=== PATIENT | male | born 1965 | race Caucasian/White ===

== ENCOUNTER 2017-07-31 19:40 | Emergency (ER) | payer OTHER ==
[~2017-07-31] VITALS: Ht 170.2 cm; Wt 70.0 kg
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
[2017-07-31] MEDS ORDERED: TETANUS/DIPHTHERIA TOXOID ADULT 0.5 ML VIAL IM ONE (20:00)
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
[2017-07-31 21:41] VITALS: BP 144/87; PULSE 88; RESP 16; TEMP 98.6; O2SAT 98
== END 2017-07-31 23:54 ==
LOC: NEPD 19:40
DX: S09.90XA Unspecified injury of head, initial encounter (principal); F10.129 Alcohol abuse with intoxication, unspecified; I83.892 Varicose veins of left lower extremity with other complications; K70.30 Alcoholic cirrhosis of liver without ascites; B19.20 Unspecified viral hepatitis C without hepatic coma; V68.1XXA Passenger in heavy transport vehicle injured in noncollision transport accident in nontraffic accident, initial encounter; Y90.9 Presence of alcohol in blood, level not specified; Z72.0 Tobacco use; Z23 Encounter for immunization
CPT/HCPCS: 12011; 70450; 72125; 90471; 90714; 96372

== ENCOUNTER 2017-08-23 08:21 | Inpatient (IN) | payer OTHER ==
[~2017-08-23] VITALS: Ht 170.2 cm; Wt 91.5 kg
[2017-08-23] VITALS (9 sets, daily range): BP systolic 128–155; BP diastolic 65–77; PULSE 97–121; RESP 12–20; TEMP 98–100; O2SAT 96–100
--- NOTE | 2017-08-23 09:42 | PD ---
HPI Chief Complaint: GI Complaint Time Seen by Provider: 09:40 Travel History International Travel<30 days: No Contact w/Intl Traveler<30days: No Traveled to known affect area: No History of Present Illness HPI 51-year-old male patient with history of cirrhosis, previous GI bleed, here because he states that he has had 2 days of dark diarrhea which is constant, nauseous, throwing up. He denies any fevers or other issues. He has been dizzy as well. He denies any chest pains or trouble breathing. Modifying Factors: None Associated Signs & Symptoms: Nausea, vomiting, dark stools Risk Factors: Cirrhosis, GI bleed history PFSH Past Medical History Cirrhosis: Yes Past Surgical History Surgical History: No Previous Surgery Social History Alcohol Use: Yes Tobacco Use: Yes (1 cig a day) Substance Use: No Allergies-Medications (Allergen,Severity, Reaction): Coded Allergies: Penicillins (Verified Allergy, Unknown, 08/23/17) patient just states "they told me im allergic to PCN" Reported Meds & Prescriptions Reported Meds & Active Scripts Active No Active Prescriptions or Reported Medications Review of Systems Except as stated in HPI: all other systems reviewed are Neg Physical Exam Narrative GENERAL: Well-developed middle-age male patient currently in mild distress. Awake and oriented 3. SKIN: Focused skin assessment warm/dry. HEAD: Atraumatic. Normocephalic. EYES: Pupils equal and round. No scleral icterus. No injection or drainage. ENT: No nasal bleeding or discharge. Mucous membranes pink and moist. NECK: Trachea midline. No JVD. Supple. CARDIOVASCULAR: Regular rate and rhythm. No murmur appreciated. RESPIRATORY: No accessory muscle use. Clear to auscultation. Breath sounds equal bilaterally. GASTROINTESTINAL: Abdomen soft, non-tender, mildly distended. Hepatic and splenic margins not palpable. RECTAL EXAM: No masses or tenderness, stool is dark brown. Hemoccult positive. MUSCULOSKELETAL: No obvious deformities. No clubbing. No cyanosis. No edema. NEUROLOGICAL: Awake and alert. No obvious cranial nerve deficits. Motor grossly within normal limits. Normal speech. PSYCHIATRIC: Appropriate mood and affect; insight and judgment normal. Data Data Last Documented VS Vital Signs Date Time Temp Pulse Resp B/P (MAP) Pulse Ox O2 Delivery O2 Flow Rate FiO2 08/23/17 10:04 113 18 141/71 (94) 98 Room Air 08/23/17 08:36 98.7 Orders Orders Complete Blood Count With Diff (08/23/17 08:38) Comprehensive Metabolic Panel (08/23/17 08:38) Urinalysis - C+S If Indicated (08/23/17 08:38) Iv Access Insert/Monitor (08/23/17 08:38) Oxygen Administration (08/23/17 08:38) Oximetry (08/23/17 08:38) Lipase (08/23/17 08:38) Prothrombin Time / Inr (Pt) (08/23/17 08:38) Act Partial Throm Time (Ptt) (08/23/17 08:38) Type And Screen (08/23/17 08:38) Alcohol (Ethanol) (08/23/17 08:38) Sodium Chlor 0.9% 1000 Ml Inj (Ns 1000 M (08/23/17 09:45) Pantoprazole Inj (Protonix Inj) (08/23/17 09:45) Red Blood Cells (Rbc) (08/23/17 11:00) Blood Product Administration (08/23/17 11:00) Sodium Chlor 0.9% 250 Ml Inj (Ns 250 Ml (08/23/17 11:00) Admit Order (Ed Use Only) (08/23/17 11:11) Labs Laboratory Tests Test 08/23/17 09:00 08/23/17 10:34 Prothrombin Time 14.1 SEC Prothromb Time International Ratio 1.4 RATIO Activated Partial Thromboplast Time 25.9 SEC Blood Urea Nitrogen 15 MG/DL Creatinine 0.56 MG/DL Random Glucose 119 MG/DL Total Protein 7.6 GM/DL Albumin 2.9 GM/DL Calcium Level 8.1 MG/DL Alkaline Phosphatase 188 U/L Aspartate Amino Transf (AST/SGOT) 59 U/L Alanine Aminotransferase (ALT/SGPT) 31 U/L Total Bilirubin 3.5 MG/DL Sodium Level 142 MEQ/L Potassium Level 4.4 MEQ/L Chloride Level 107 MEQ/L Carbon Dioxide Level 25.6 MEQ/L Anion Gap 9 MEQ/L Estimat Glomerular Filtration Rate 154 ML/MIN Lipase 135 U/L Ethyl Alcohol Level 19 MG/DL White Blood Count 3.5 TH/MM3 Red Blood Count 2.17 MIL/MM3 Hemoglobin 6.3 GM/DL Hematocrit 19.2 % Mean Corpuscular Volume 88.6 FL Mean Corpuscular Hemoglobin 29.1 PG Mean Corpuscular Hemoglobin Concent 32.8 % Red Cell Distribution Width 22.7 % Platelet Count 133 TH/MM3 Mean Platelet Volume 7.7 FL Neutrophils (%) (Auto) 63.6 % Lymphocytes (%) (Auto) 20.9 % Monocytes (%) (Auto) 10.6 % Eosinophils (%) (Auto) 3.3 % Basophils (%) (Auto) 1.6 % Neutrophils # (Auto) 2.2 TH/MM3 Lymphocytes # (Auto) 0.7 TH/MM3 Monocytes # (Auto) 0.4 TH/MM3 Eosinophils # (Auto) 0.1 TH/MM3 Basophils # (Auto) 0.1 TH/MM3 CBC Comment DIFF FINAL Differential Comment MDM Medical Decision Making Medical Screen Exam Complete: Yes Emergency Medical Condition: Yes Medical Record Reviewed: Yes Interpretation(s) Laboratory Tests Test 08/23/17 09:00 08/23/17 10:34 Prothrombin Time 14.1 SEC (9.8-11.6) Creatinine 0.56 MG/DL (0.60-1.30) Random Glucose 119 MG/DL (74-106) Albumin 2.9 GM/DL (3.4-5.0) Calcium Level 8.1 MG/DL (8.5-10.1) Alkaline Phosphatase 188 U/L (45-117) Aspartate Amino Transf (AST/SGOT) 59 U/L (15-37) Total Bilirubin 3.5 MG/DL (0.2-1.0) Ethyl Alcohol Level 19 MG/DL (0-5) White Blood Count 3.5 TH/MM3 (4.0-11.0) Red Blood Count 2.17 MIL/MM3 (4.50-5.90) Hemoglobin 6.3 GM/DL (13.0-17.0) Hematocrit 19.2 % (39.0-51.0) Red Cell Distribution Width 22.7 % (11.6-17.2) Platelet Count 133 TH/MM3 (150-450) Monocytes (%) (Auto) 10.6 % (0.0-8.0) Lymphocytes # (Auto) 0.7 TH/MM3 (1.0-4.8) Differential Diagnosis GI bleed versus coagulopathy versus gastroenteritis Narrative Course Heme Hemoccult is positive. His H&H is low. Patient was initiated on IV fluids , Protonix, and 2 units of PRBCs. Case is discussed with family practice resident service for admission for further treatment. He will need GI consult as well. HemaPrompt Point of Care Internal Pos. & Neg. Controls: Passed Fecal Specimen Occult Blood: Positive Diagnosis Primary Impression: GI bleed Additional Impression: Severe anemia Admitting Information Admitting Physician Requests: Admit Scripts No Active Prescriptions or Reported Meds Sherly Rice MD Aug 23, 2017 09:42
[2017-08-23] MEDS ORDERED: SODIUM CHLOR 0.9% 1000 ML INJ 1,000 ML IV ONE (09:45)
[2017-08-23] MEDS ORDERED: PANTOPRAZOLE SODIUM 40 MG VIAL IV PUSH ONE (09:45)
[2017-08-23 10:00] LABS: INTERNATIONAL NORMALIZED RATIO 1.4 RATIO; PROTHROMBIN TIME - PATIENT 14.1 SEC (9.8-11.6)
[2017-08-23 10:13] LABS: ALBUMIN 2.9 GM/DL (3.4-5.0); ALT (GPT) 31 U/L (12-78); AST (GOT) 59 U/L (15-37); BICARBONATE 25.6 MEQ/L (21.0-32.0); BLOOD UREA NITROGEN 15 MG/DL (7-18); CALCIUM 8.1 MG/DL (8.5-10.1); CHLORIDE 107 MEQ/L (98-107); CREATININE 0.56 MG/DL (0.60-1.30); GLOMERULAR FILTRATION RATE 154 ML/MIN (>89); GLUCOSE,RANDOM 119 MG/DL (74-106); SODIUM (NA) 142 MEQ/L (136-145)
[2017-08-23 10:16] LABS: ALKALINE PHOSPHATASE 188 U/L (45-117); TOTAL BILIRUBIN ADULT 3.5 MG/DL (0.2-1.0); TOTAL PROTEIN 7.6 GM/DL (6.4-8.2)
[2017-08-23 10:57] LABS: AUTOMATED NEUTROPHIL # 2.2 TH/MM3 (1.8-7.7); BASOPHIL # 0.1 TH/MM3 (0-0.2); BASOPHIL % 1.6 % (0.0-2.0); EOSINOPHIL # 0.1 TH/MM3 (0-0.4); EOSINOPHIL % 3.3 % (0.0-4.0); LYMPH % 20.9 % (9.0-44.0); LYMPHOCYTE # 0.7 TH/MM3 (1.0-4.8); MEAN CELL VOLUME 88.6 FL (80.0-100.0); MEAN CORPUSCULAR HEMOGLOBIN 29.1 PG (27.0-34.0); MEAN CORPUSCULAR HGB CONC 32.8 % (32.0-36.0); MEAN PLATELET VOLUME 7.7 FL (7.0-11.0); MONO % 10.6 % (0.0-8.0); MONOCYTE # 0.4 TH/MM3 (0-0.9); NEUT % 63.6 % (16.0-70.0); PLATELET COUNT 133 TH/MM3 (150-450); RED BLOOD COUNT 2.17 MIL/MM3 (4.50-5.90); RED CELL DISTRIBUTION WIDTH 22.7 % (11.6-17.2); WHITE BLOOD COUNT 3.5 TH/MM3 (4.0-11.0)
[2017-08-23 11:00] LABS: HEMATOCRIT 19.2 % (39.0-51.0); HEMOGLOBIN 6.3 GM/DL (13.0-17.0)
[2017-08-23] MEDS ORDERED: SODIUM CHLOR 0.9% 250 ML INJ 250 ML IV ONE (11:00)
[2017-08-23] MEDS ORDERED: ONDANSETRON HCL 4 MG/2 ML VIAL IV PUSH PRN (11:15)
[2017-08-23] MEDS ORDERED: SODIUM CHLORIDE 0.9% FLUSH 10 ML FLUSH IV FLUSH PRN (11:15)
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
[2017-08-23] MEDS ORDERED: FLUMAZENIL 0.5 MG/5 ML VIAL IV PUSH PRN (12:00)
[2017-08-23] MEDS ORDERED: SENNOSIDES 8.6 MG TAB PO PRN (12:00)
[2017-08-23] MEDS ORDERED: LORazepam 2 MG TAB PO PRN (12:00)
[2017-08-23] MEDS ORDERED: LACTULOSE SYRUP 20 GM/30 ML CUP PO PRN (12:00)
[2017-08-23] MEDS ORDERED: LORazepam 1 MG TAB PO PRN (12:00)
[2017-08-23] MEDS ORDERED: MAGNESIUM HYDROXIDE SUSP 30 ML CUP PO PRN (12:00)
[2017-08-23] MEDS ORDERED: BISACODYL 10 MG SUPP RECTAL PRN (12:00)
[2017-08-23] MEDS ORDERED: LORazepam 2 MG/ML VIAL IV PUSH PRN ×4 (12:00)
[2017-08-23] MEDS ORDERED: NALOXONE HCL 0.4 MG/ML AMP IV PUSH PRN (12:00)
--- NOTE | 2017-08-23 12:48 | RADRPT ---
EXAM DATE/TIME: 08/23/2017 12:15 [facility] COMPARISON: No previous studies available for comparison. INDICATIONS : Cirrhosis. Abdominal pain. MEDICAL HISTORY : Cirrhosis. SURGICAL HISTORY : Colonoscopy. EGD. ENCOUNTER: Initial ACUITY: 1 day PAIN SCORE: 0/10 LOCATION: Abdomen. MEASUREMENTS: LIVER: 17.6 cm length COMMON DUCT: 5 mm RIGHT KIDNEY: 11.8 x 5.8 x 6.4 cm SPLEEN: 14.2 cm length FINDINGS: LIVER: The liver is enlarged and heterogeneous in echotexture. The contour of the liver is also somewhat nod ular. The findings are suggestive of probable cirrhosis. There is hepatopetal flow within the portal vein. No focal mass or biliary ductal dilatation is noted. Ascites is noted throughout the abdomen. COMMON DUCT: No intraluminal mass or stone visualized. GALLBLADDER: The wall of the gallbladder is thickened. No stones, pericholecystic fluid or sonographic Quiñones's si gn is noted. PANCREAS: The visualized portions are within normal limits. RIGHT KIDNEY: No hydronephrosis, stone or mass. SPLEEN: The spleen is enlarged. CONCLUSION: 1. Enlarged heterogeneous nodular liver suggesting cirrhosis. 2. Ascites. 3. Mild splenomegaly. 4. Gallbladder wall thickening without stones, pericholecystic fluid or sonographic Quiñones's sign. Cl inical correlation is recommended to rule out subtle cholecystitis. Darwin Medina MD on August 23, 2017 at 12:43 Board Certified Radiologist. This report was verified electronically.
[2017-08-23] MEDS: SODIUM CHLOR 0.9% 1000 ML INJ 1,000 ML IV SCH ×2 (12:55→20:52)
--- NOTE | 2017-08-23 13:28 | RADRPT ---
EXAM DATE/TIME: 08/23/2017 12:50 [facility] COMPARISON: No previous studies available for comparison. INDICATIONS : GI bleed, shortness of breath, abdomen pain. MEDICAL HISTORY : None. SURGICAL HISTORY : None. ENCOUNTER: Initial ACUITY: 3 days PAIN SCORE: 10/10 LOCATION: Bilateral chest FINDINGS: A single view of the chest demonstrates the lungs to be symmetrically aerated without evidence of mas s, infiltrate or effusion. There is focal linear atelectasis versus scarring in the right lung base. The cardiomediastinal contours are unremarkable. Osseous structures are intact. CONCLUSION: 1. Focal linear atelectasis or scarring in the right lung base. 2. Otherwise, the lungs are clear bilaterally. Miles Harding MD on August 23, 2017 at 13:26 Board Certified Radiologist. This report was verified electronically.
--- NOTE | 2017-08-23 14:40 | PD.CONS ---
HPI History of Present Illness This is a 51 year old M with PMH significant for cirrhosis secondary to ETOH dependence, esophageal varices, and multiple GIB with previous admissions here for same. Pt presented to the ER earlier today via [facility] with complaints of rectal bleeding, has had approx 22 episodes since yesterday. States seems to be diarrhea with dark red blood. Also complaining of abdominal pain but this is not new, states chronic pain and distention. Last paracentesis reportedly over 6 months ago. Also complaining of nausea and vomiting for the past few days, states only a small amount of vomit and that having blood in his vomit is normal for him. Reports a lump sensation in his throat making it difficult for him to swallow. Pt had recent EGD done by our service (08/04/17) --> Varices, 2 columns, stigmata of recent bleeding noted 2 bands applied successfully. Blood covering the entire stomach. Normal duodenum. Last colonoscopy in May of this year --> 2 small polyps in the rectum ablated, no sign of bleeding and no lesion to explain anemia. Pt states he has not been drinking alcohol because the person he lives with will not allow him however admits to having a few drinks before coming in to the hospital. H/H currently 6.3/19.2. 2 U PRBCs have been ordered. (Ev Avendaño) PFSH Past Medical History Esophageal varices GIB Cirrhosis ETOH dependence Past Surgical History EGD Colonoscopy (Ev Avendaño) Coded Allergies: Penicillins (Verified Allergy, Unknown, 08/23/17) patient just states "they told me im allergic to PCN" Social History ETOH- states he has not been drinking ETOH however had a few drinks before coming in Admits to marijuana (Ev Avendaño) Review of Systems Gastrointestinal: COMPLAINS OF: Abdominal pain, Bloody stools, Diarrhea, Nausea , Vomiting, Difficulty Swallowing, Odynophagia, Swelling of Abdomen, Heartburn, DENIES: Black stools, Constipation, Hematemesis (Ev Avendaño) GI Exam Vitals I&O Vital Signs Date Time Temp Pulse Resp B/P (MAP) Pulse Ox O2 Delivery O2 Flow Rate FiO2 08/23/17 12:36 98.8 113 18 132/65 (87) 98 Room Air 08/23/17 12:35 98.8 113 15 132/65 97 08/23/17 10:04 113 18 141/71 (94) 98 Room Air 08/23/17 09:50 99 Room Air 08/23/17 08:36 98.7 121 16 139/66 (90) 100 Imaging Last Impressions Liver Ultrasound 08/23/17 0000 Signed Impressions: Service Date/Time: Wednesday, August 23, 2017 12:15 - CONCLUSION: 1. Enlarged heterogeneous nodular liver suggesting cirrhosis. 2. Ascites. 3. Mild splenomegaly. 4. Gallbladder wall thickening without stones, pericholecystic fluid or sonographic Quiñones's sign. Clinical correlation is recommended to rule out subtle cholecystitis. Darwin Medina MD Chest X-Ray 08/23/17 0000 Signed Impressions: Service Date/Time: Wednesday, August 23, 2017 12:50 - CONCLUSION: 1. Focal linear atelectasis or scarring in the right lung base. 2. Otherwise, the lungs are clear bilaterally. Miles Harding MD Laboratory Test 08/23/17 09:00 08/23/17 10:34 Prothrombin Time 14.1 SEC Prothromb Time International Ratio 1.4 RATIO Activated Partial Thromboplast Time 25.9 SEC Blood Urea Nitrogen 15 MG/DL Creatinine 0.56 MG/DL Random Glucose 119 MG/DL Total Protein 7.6 GM/DL Albumin 2.9 GM/DL Calcium Level 8.1 MG/DL Alkaline Phosphatase 188 U/L Aspartate Amino Transf (AST/SGOT) 59 U/L Alanine Aminotransferase (ALT/SGPT) 31 U/L Total Bilirubin 3.5 MG/DL Sodium Level 142 MEQ/L Potassium Level 4.4 MEQ/L Chloride Level 107 MEQ/L Carbon Dioxide Level 25.6 MEQ/L Anion Gap 9 MEQ/L Estimat Glomerular Filtration Rate 154 ML/MIN Lipase 135 U/L Ethyl Alcohol Level 19 MG/DL White Blood Count 3.5 TH/MM3 Red Blood Count 2.17 MIL/MM3 Hemoglobin 6.3 GM/DL Hematocrit 19.2 % Mean Corpuscular Volume 88.6 FL Mean Corpuscular Hemoglobin 29.1 PG Mean Corpuscular Hemoglobin Concent 32.8 % Red Cell Distribution Width 22.7 % Platelet Count 133 TH/MM3 Mean Platelet Volume 7.7 FL Neutrophils (%) (Auto) 63.6 % Lymphocytes (%) (Auto) 20.9 % Monocytes (%) (Auto) 10.6 % Eosinophils (%) (Auto) 3.3 % Basophils (%) (Auto) 1.6 % Neutrophils # (Auto) 2.2 TH/MM3 Lymphocytes # (Auto) 0.7 TH/MM3 Monocytes # (Auto) 0.4 TH/MM3 Eosinophils # (Auto) 0.1 TH/MM3 Basophils # (Auto) 0.1 TH/MM3 CBC Comment DIFF FINAL Differential Comment Physical Examination HEENT: Normocephalic; atraumatic (+) icterus CHEST: Even/unlabored CARDIAC: RRR ABDOMEN: Distended, firm, diffuse TTP, bowel sounds active SKIN: (+) jaundice. PROGRAMMER ANALYST: No focal deficits; alert and oriented times three. (Ev Avendaño) Assessment and Plan Plan Assessment: - Rectal bleeding with severe anemia- states 22 episodes since yesterday. H/H 6.3/19.2 on admission, 2 U PRBCs have been ordered and are transfusing. History of GIB, seen by our service at [facility]. EGD done by our service (08/04/17) --> Varices, 2 columns, stigmata of recent bleeding noted 2 bands applied successfully. Blood covering the entire stomach. Normal duodenum. Last colonoscopy in May of this year --> 2 small polyps in the rectum ablated, no sign of bleeding and no lesion to explain anemia. - Nausea and vomiting for the past 2 days, states small amount, report he "normally" has blood in her emesis - Cirrhosis- Liver US --> Enlarged heterogeneous nodular liver suggesting cirrhosis. Ascites. Mild splenomegaly. Gallbladder wall thickening without stones, pericholecystic fluid or sonographic Quiñones's sign. Platelets 133 Albumin 2.9 LFTs AST-59 ALT-31 Alk phos-188 T bili-3.5 DF-13 - Coagulopathy INR 1.4 - ETOH dependence. Pt states he has not been drinking alcohol because the person he lives with will not allow him however admits to having a few drinks before coming in to the hospital. H/H currently 6.3/19.2. 2 U PRBCs have been ordered. Has a different account in computer which previous information can be found in. Account under [id number] Plan: EGD/colonoscopy tomorrow Obtain consent Clear liquids today Magnesium Citrate prep NPO after MN Serial H/H- q6h per attending Protonix gtt Octreotide gtt Alcohol withdraw protocol Telemetry monitoring Repeat PT/INR in AM Further recommendations based on results of above Pt has been seen and examined by myself and Dr. Ventura and this note is written on his behalf (Ev Avendaño) Physician Comments Patient seen and examined Agree with above Continue with current supportive care Monitor labs Plan for an EGD and a colonoscopy tomorrow (Rony Ventura MD) Ev Avendaño Aug 23, 2017 14:40 Rony Ventura MD Aug 23, 2017 22:03
[2017-08-23] MEDS: CIPROFLOXACIN 400 MG PREMIX 200 ML IV SCH (15:15)
[2017-08-23 15:44] LABS: BILIRUBIN, URINE NEG (NEG); BLOOD, URINE NEG (NEG); GLUCOSE,URINE NEG (NEG); KETONE, URINE 40 mg/dL (NEG); NITRITE,URINE NEG (NEG); URINE COLOR YELLOW (YELLW/STRAW); URINE LEUKOCYTE ESTERASE NEG (NEG)
[2017-08-23] MEDS ORDERED: MAGNESIUM CITRATE SOLN 300 ML BTL PO ONE ×2 (16:00→18:00)
[2017-08-23] MEDS: OCTREOTIDE INJ 500 MCG in SODIUM CHLORID 0.9% 500 ML INJ 499.5 ML IV SCH (16:28)
[2017-08-23] MEDS: PANTOPRAZOLE INJ 80 MG in SODIUM CHLORIDE 0.9% INJ 100 ML IV SCH (16:29)
[2017-08-23] MEDS: MULTIVITAMIN INJ 10 ML, THIAMINE INJ 100 MG, FOLIC ACID INJ 1 MG in SODIUM CHLORID 0.9%... IV SCH (17:18)
[2017-08-23] MEDS: SODIUM CHLORIDE 0.9% FLUSH 10 ML FLUSH IV FLUSH SCH (20:59)
[2017-08-23 21:29] LABS: HEMATOCRIT 24.9 % (39.0-51.0); HEMOGLOBIN 8.4 GM/DL (13.0-17.0)
[2017-08-24] VITALS (7 sets, daily range): BP systolic 137–146; BP diastolic 68–82; PULSE 98–106; RESP 18–20; TEMP 97–99.9; O2SAT 94–97
[2017-08-24] MEDS: PANTOPRAZOLE INJ 80 MG in SODIUM CHLORIDE 0.9% INJ 100 ML IV SCH ×2 (00:32→12:03)
[2017-08-24] MEDS: OCTREOTIDE INJ 500 MCG in SODIUM CHLORID 0.9% 500 ML INJ 499.5 ML IV SCH ×2 (02:27→12:04)
[2017-08-24] MEDS: CIPROFLOXACIN 400 MG PREMIX 200 ML IV SCH ×2 (02:27→13:47)
[2017-08-24 03:29] LABS: HEMATOCRIT 24.1 % (39.0-51.0); HEMOGLOBIN 8.1 GM/DL (13.0-17.0)
[2017-08-24] MEDS: SODIUM CHLOR 0.9% 1000 ML INJ 1,000 ML IV SCH ×3 (06:01→20:00)
[2017-08-24 06:23] LABS: AUTOMATED NEUTROPHIL # 1.6 TH/MM3 (1.8-7.7); BASOPHIL # 0.1 TH/MM3 (0-0.2); BASOPHIL % 2.4 % (0.0-2.0); EOSINOPHIL # 0.3 TH/MM3 (0-0.4); EOSINOPHIL % 8.5 % (0.0-4.0); HEMOGLOBIN 7.9 GM/DL (13.0-17.0); LYMPH % 24.8 % (9.0-44.0); LYMPHOCYTE # 0.7 TH/MM3 (1.0-4.8); MEAN CELL VOLUME 86.6 FL (80.0-100.0); MEAN CORPUSCULAR HEMOGLOBIN 29.9 PG (27.0-34.0); MEAN CORPUSCULAR HGB CONC 34.5 % (32.0-36.0); MEAN PLATELET VOLUME 7.8 FL (7.0-11.0); MONO % 10.8 % (0.0-8.0); MONOCYTE # 0.3 TH/MM3 (0-0.9); NEUT % 53.5 % (16.0-70.0); PLATELET COUNT 114 TH/MM3 (150-450); RED BLOOD COUNT 2.66 MIL/MM3 (4.50-5.90); RED CELL DISTRIBUTION WIDTH 19.7 % (11.6-17.2)
[2017-08-24 06:28] LABS: INTERNATIONAL NORMALIZED RATIO 1.5 RATIO; PROTHROMBIN TIME - PATIENT 15.4 SEC (9.8-11.6)
[2017-08-24 07:23] LABS: BICARBONATE 22.7 MEQ/L (21.0-32.0); CALCIUM 7.1 MG/DL (8.5-10.1); CALCIUM-PROTEIN CORRECTED 7.9 MG/DL (8.5-10.1); CREATININE 0.58 MG/DL (0.60-1.30); TOTAL BILIRUBIN ADULT 5.5 MG/DL (0.2-1.0); TOTAL PROTEIN 5.6 GM/DL (6.4-8.2)
[2017-08-24 08:00] LABS: KERATOCYTES OCC (NORMAL)
[2017-08-24] MEDS: SODIUM CHLORIDE 0.9% FLUSH 10 ML FLUSH IV FLUSH SCH ×2 (08:21→22:56)
[2017-08-24] MEDS ORDERED: LIDOCAINE HCL 1% PF 5 ML SYRINGE OTHER ONE (12:00)
[2017-08-24] MEDS ORDERED: PROPOFOL 200 MG/20 ML AMP IV ONE (12:00)
[2017-08-24 12:09] LABS: HEMATOCRIT 24.3 % (39.0-51.0); HEMOGLOBIN 8.1 GM/DL (13.0-17.0)
--- NOTE | 2017-08-24 12:17 | EKG ---
Date Performed: 08/23/2017 Time Performed: 12:45:14 PTAGE: 51 years EKG: SINUS TACHYCARDIA NONSPECIFIC T-WAVE ABNORMALITY ABNORMAL RHYTHM ECG WARNING: DATA QUALITY MAY AFFECT INTERPRETATION NO PREVIOUS TRACING DOCTOR: Jj Mcfadden Interpretating Date/Time 08/24/2017 12:15:56
--- NOTE | 2017-08-24 12:22 | HHI.FPPN ---
Subjective Remarks No acute events overnight. Patient states he continues to have dark, watery stools. No vomiting overnight but continues to complain of nausea. Denies tremors but states he has been "seeing some things" in his room. States he has had a seizure before but unrelated to alcohol withdrawal. Also complains of headache/toothache. (Bran Munson MD R1) Objective Vitals Vital Signs Date Time Temp Pulse Resp B/P (MAP) Pulse Ox O2 Delivery O2 Flow Rate FiO2 08/24/17 12:00 99.3 98 18 138/73 (94) 95 08/24/17 08:00 99.4 98 18 146/73 (97) 94 08/24/17 04:00 99.2 104 20 142/68 (92) 97 08/24/17 04:00 106 08/24/17 00:00 104 08/24/17 00:00 97.0 99 18 144/82 (102) 97 08/23/17 20:00 98.0 104 18 155/69 (97) 98 08/23/17 17:21 100.0 97 20 148/77 (100) 96 08/23/17 17:18 (90) 08/23/17 16:50 99.7 97 12 139/72 97 08/23/17 15:11 99.5 112 16 128/66 98 08/23/17 15:00 99.5 117 18 138/67 (90) 98 Room Air 08/23/17 12:36 98.8 113 18 132/65 (87) 98 Room Air 08/23/17 12:35 98.8 113 15 132/65 97 I/O 08/23/17 08/23/17 08/23/17 08/24/17 08/24/17 08/24/17 07:00 15:00 23:00 07:00 15:00 23:00 Intake Total 300 ml 1500 ml Output Total 600 ml 575 ml Balance 300 ml 1500 ml -600 ml -575 ml Packed Cells 800 ml Blood Product IV Normal Saline Flush 300 ml 700 ml Output Urine Total 600 ml 575 ml # Voids 2 # Bowel Movements 1 (Bran Munson MD R1) Result Diagram: 08/24/17 1130 08/24/17 0559 Objective Remarks GENERAL: Patient is lying in bed in no apparent distress. Speech can be tangential but not confused today SKIN: No jaundice appreciated. No ecchymoses. Skin warm and dry. HEAD: Atraumatic. Normocephalic. No temporal or scalp tenderness. EYES: PEERLA. Extraocular motions intact. No scleral icterus. No injection or drainage. ENT: Nose without bleeding, purulent drainage or septal hematoma. Throat without erythema, tonsillar hypertrophy or exudate. Uvula midline. Airway patent. NECK: Trachea midline. No JVD or lymphadenopathy. Supple, nontender, no meningeal signs. CARDIOVASCULAR: Aortic area 3/6 murmur noted, nonradiating. Normal rate. 2+ pulses bilaterally in UEs and LEs. RESPIRATORY: Clear to auscultation. Breath sounds equal bilaterally. No wheezes , rales, or rhonchi. GASTROINTESTINAL: Abdomen distended but not tense. Globally tender to palpation including over the liver. Unable to palpate liver and spleen. No palpated masses. No guarding. MUSCULOSKELETAL: Extremities without clubbing, cyanosis, or edema. No joint tenderness, effusion, or edema noted. No calf tenderness. NEUROLOGICAL: Awake and alert. No tremors appreciated Cranial nerves II through XII grossly intact. Strength and sensation grossly intact. Normal speech. PYSCH: does not appear to respond to internal stimuli (Bran Munson MD R1) A/P Assessment and Plan Patient is 51 year old male with cirrhosis and alcoholism who presents for acute blood loss anemia secondary to GIB. Gastroenterology consulted, patient to receive MIVF and is NPO, serial H&H, and close monitoring. Received 2 units of RBC in ED and responded appropriately. Planning of EGD/Colonoscopy on 08/24 per GI (Bran Munson MD R1) Attending Attestation Table rounds this morning with Dr Cuevas, Dr Ulises Finley, Dr Munson and Dr Judge Patients admission and hospital course discussed in detail EMR reviewed Patient interviewed and examined with medical team Agree with contents of above documentation See Orders (Jerry Ayala MD) Problem List: (1) Severe anemia ICD Codes: D64.9 - Anemia, unspecified Status: Acute Plan: * Two large bore IVs * Type and screen * Hbg on admission 6.3 * 2 unit PRBCs given in ED - Hbg raised to 8.4 and has been stable on 08/24. * Gastroenterology consult - planning for EGD/colonoscopy on 08/24 * History of varices - started on Octreotide on 08/23 * NPO for now * IVF @ approximately maintenance @ 125cc/hr NS (2) GI bleed ICD Codes: K92.2 - Gastrointestinal hemorrhage, unspecified Status: Acute Plan: Acute blood loss anemia secondary to GIB Plan as above (3) Alcohol withdrawal ICD Codes: F10.239 - Alcohol dependence with withdrawal, unspecified Status: Chronic Plan: * CIWA protocol - had a score of 3 on 08/24 AM * IV Rally Pack * Counseling (4) Cirrhosis of liver ICD Codes: K74.60 - Unspecified cirrhosis of liver Plan: * RUQ ultrasound on admission showed enlarged heterogeneous nodular liver suggesting cirrhosis, ascites, gallbladder wall thickening without stones * For SBP prophylaxis will start give Cipro 400 q12hr IV on 08/23 * Ammonia on admission elevated at 109, will trend (5) Fluids, Electrolytes, Nutrition, and Prophylaxis Status: Acute Plan: Fluids: NS @ 125cc/hr Electrolytes: monitor and replete as needed Nutrition: NPO for now pending EGD/Colonoscopy PPX: Hold dvt ppx given GIB, give SCDs Lines: 2 large bore IVs Disposition: expect 2-3 day hospitalization for anemia mgmt, GIB evaluation, alcohol withdrawal. CM consulted (Bran Munson MD R1) Problem Qualifiers (1) GI bleed: Qualified Codes: K92.1 - Melena (2) Alcohol withdrawal: Qualified Codes: F10.230 - Alcohol dependence with withdrawal, uncomplicated (3) Cirrhosis of liver: Qualified Codes: K70.31 - Alcoholic cirrhosis of liver with ascites Bran Munson MD R1 Aug 24, 2017 12:22 Jerry Ayala MD Aug 24, 2017 19:35
--- NOTE | 2017-08-24 16:08 | PD.PROCEDR ---
GI Procedure PROCEDURE PERFORMED EGD with biopsy followed by a colonoscopy INDICATION FOR PROCEDURE Anemia, rectal bleeding, cirrhosis PROCEDURE: The procedure, risks and benefits were discussed with Ms. Moreno and informed consent was obtained. Anesthesia sedated her with Diprivan. She was placed in the left lateral decubitus position. EGD: The Pentax videoscope was introduced through the oropharynx and advanced to the second portion of the duodenum under direct visualization. Retroflexion was performed in the stomach. FINDINGS: The esophagus esophagitis was noted in the distal esophagus manifesting with some friability and erythema this was biopsied no obvious esophageal varices were noted The stomach there were moderately sized gastric varices in the fundus but no stigmata gastric mucosa appeared to be somewhat erythemic and a punctate and patchy fashion with some edema possibly suggestive of gastropathy biopsies were taken for further evaluation The duodenum there was some nodularity in the duodenal bulb this appeared to be benign but this was biopsied the rest of the duodenum was unremarkable Colonoscopy: The Pentax videoscope was introduced through the rectum and advanced to cecum where the ileocecal valve and appendiceal orifice were identified. Retroflexion was performed in the rectum. Colonic prep was good FINDINGS: Colonic withdrawal time greater than 6 minutes. As the scope was slowly withdrawn colonic mucosa was carefully inspected the colonic mucosa appeared to be unremarkable with normal limits all the way through retroflexion and rectal examination were also normal ESTIMATED BLOOD LOSS: None SPECIMENS REMOVED: Antral biopsies and distal esophageal biopsies COMPLICATIONS: None IMPRESSION: Esophagitis probably reflux related Gastritis with probably some portal gastropathy Nodular duodenal bulb of unclear significance Normal colonoscopy PLAN: Await biopsies High-fiber diet with low-salt Avoid alcohol We will be correcting his coagulopathy and patient will be given vitamin K We will monitor labs and proceed accordingly Rony Ventura MD Aug 24, 2017 16:08
[2017-08-24] MEDS ORDERED: PHYTONADIONE 10 MG/ML VIAL SQ ONE (17:00)
[2017-08-24] MEDS: MULTIVITAMIN INJ 10 ML, THIAMINE INJ 100 MG, FOLIC ACID INJ 1 MG in SODIUM CHLORID 0.9%... IV SCH (17:20)
[2017-08-24 20:00] LABS: HEMATOCRIT 24.5 % (39.0-51.0); HEMOGLOBIN 8.2 GM/DL (13.0-17.0)
[2017-08-25] VITALS (8 sets, daily range): BP systolic 127–137; BP diastolic 67–74; PULSE 86–105; RESP 18; TEMP 98.1–100.1; O2SAT 95–99
[2017-08-25] MEDS: OCTREOTIDE INJ 500 MCG in SODIUM CHLORID 0.9% 500 ML INJ 499.5 ML IV SCH ×3 (01:18→16:20)
[2017-08-25] MEDS: PANTOPRAZOLE INJ 80 MG in SODIUM CHLORIDE 0.9% INJ 100 ML IV SCH ×3 (01:18→16:28)
[2017-08-25] MEDS: SODIUM CHLOR 0.9% 1000 ML INJ 1,000 ML IV SCH ×2 (01:20→09:08)
[2017-08-25] MEDS: CIPROFLOXACIN 400 MG PREMIX 200 ML IV SCH ×2 (01:23→12:38)
[2017-08-25] MEDS: SODIUM CHLORIDE 0.9% FLUSH 10 ML FLUSH IV FLUSH SCH ×2 (09:08→21:00)
[2017-08-25 09:56] LABS: AUTOMATED NEUTROPHIL # 1.4 TH/MM3 (1.8-7.7); BASOPHIL # 0.1 TH/MM3 (0-0.2); BASOPHIL % 2.5 % (0.0-2.0); EOSINOPHIL # 0.2 TH/MM3 (0-0.4); EOSINOPHIL % 6.9 % (0.0-4.0); HEMATOCRIT 26.5 % (39.0-51.0); HEMOGLOBIN 8.9 GM/DL (13.0-17.0); LYMPH % 20.8 % (9.0-44.0); LYMPHOCYTE # 0.5 TH/MM3 (1.0-4.8); MEAN CELL VOLUME 89.2 FL (80.0-100.0); MEAN CORPUSCULAR HEMOGLOBIN 29.8 PG (27.0-34.0); MEAN CORPUSCULAR HGB CONC 33.4 % (32.0-36.0); MEAN PLATELET VOLUME 7.8 FL (7.0-11.0); MONO % 12.3 % (0.0-8.0); MONOCYTE # 0.3 TH/MM3 (0-0.9); NEUT % 57.5 % (16.0-70.0); PLATELET COUNT 104 TH/MM3 (150-450); RED BLOOD COUNT 2.97 MIL/MM3 (4.50-5.90); RED CELL DISTRIBUTION WIDTH 20.5 % (11.6-17.2); WHITE BLOOD COUNT 2.5 TH/MM3 (4.0-11.0)
[2017-08-25 10:04] LABS: INTERNATIONAL NORMALIZED RATIO 1.6 RATIO; PROTHROMBIN TIME - PATIENT 16.4 SEC (9.8-11.6)
[2017-08-25 10:33] LABS: ALBUMIN 2.2 GM/DL (3.4-5.0); BICARBONATE 22.5 MEQ/L (21.0-32.0); CALCIUM 7.3 MG/DL (8.5-10.1); CALCIUM-PROTEIN CORRECTED 7.9 MG/DL (8.5-10.1); CREATININE 0.62 MG/DL (0.60-1.30)
--- NOTE | 2017-08-25 10:45 | HHI.FPPN ---
Subjective Remarks Patient was seen and examined this morning. No reported bleeding today. He complaints of abdominal pain after GI procedures yesterday but no nausea, vomiting, chest pain, or shortness of breath. No withdrawal symptoms reported. Objective Vitals Vital Signs Date Time Temp Pulse Resp B/P (MAP) Pulse Ox O2 Delivery O2 Flow Rate FiO2 08/25/17 08:00 98.1 92 18 137/72 (93) 99 08/25/17 04:00 99.3 92 18 132/67 (88) 95 08/25/17 00:00 100.1 99 18 128/70 (89) 95 08/24/17 20:30 98 08/24/17 20:00 99.9 99 18 137/69 (91) 97 08/24/17 19:07 103 08/24/17 16:00 100.5 90 16 109/67 (81) 97 08/24/17 12:00 99.3 98 18 138/73 (94) 95 I/O 08/24/17 08/24/17 08/24/17 08/25/17 08/25/17 08/25/17 06:59 14:59 22:59 06:59 14:59 22:59 Intake Total 400 ml Output Total 600 ml 575 ml 625 ml 550 ml Balance -600 ml -575 ml -225 ml -550 ml Other 400 ml Output Urine Total 600 ml 575 ml 625 ml 550 ml # Voids 2 # Bowel Movements 1 Result Diagram: 08/25/17 0924 08/25/17 0924 Imaging Last Impressions Liver Ultrasound 08/23/17 0000 Signed Impressions: Service Date/Time: Wednesday, August 23, 2017 12:15 - CONCLUSION: 1. Enlarged heterogeneous nodular liver suggesting cirrhosis. 2. Ascites. 3. Mild splenomegaly. 4. Gallbladder wall thickening without stones, pericholecystic fluid or sonographic Quiñones's sign. Clinical correlation is recommended to rule out subtle cholecystitis. Darwin Medina MD Chest X-Ray 08/23/17 0000 Signed Impressions: Service Date/Time: Wednesday, August 23, 2017 12:50 - CONCLUSION: 1. Focal linear atelectasis or scarring in the right lung base. 2. Otherwise, the lungs are clear bilaterally. Miles Harding MD Objective Remarks GENERAL: Patient is lying in bed in no apparent distress. Speech can be tangential but not confused today SKIN: No jaundice appreciated. No ecchymoses. Skin warm and dry. HEAD: Atraumatic. Normocephalic. No temporal or scalp tenderness. EYES: PEERLA. Extraocular motions intact. No scleral icterus. No injection or drainage. ENT: Nose without bleeding, purulent drainage or septal hematoma. Throat without erythema, tonsillar hypertrophy or exudate. Uvula midline. Airway patent. NECK: Trachea midline. No JVD or lymphadenopathy. Supple, nontender, no meningeal signs. CARDIOVASCULAR: Aortic area 3/6 murmur noted, nonradiating. Normal rate. 2+ pulses bilaterally in UEs and LEs. RESPIRATORY: Clear to auscultation. Breath sounds equal bilaterally. No wheezes , rales, or rhonchi. GASTROINTESTINAL: Abdomen distended but not tense. Globally tender to palpation including over the liver. Unable to palpate liver and spleen. No palpated masses. No guarding. MUSCULOSKELETAL: Extremities without clubbing, cyanosis, or edema. No joint tenderness, effusion, or edema noted. No calf tenderness. NEUROLOGICAL: Awake and alert. No tremors appreciated Cranial nerves II through XII grossly intact. Strength and sensation grossly intact. Normal speech. PYSCH: does not appear to respond to internal stimuli Procedures EGD 08/24/2017: Esophagitis, reflux-related gastritis with probably some portal gastropathy, nodular duodenal bulb of unclear significance Colonoscopy 08/24/2017: normal Medications and IVs Inpatient Medications Bisacodyl (Dulcolax Supp) 10 mg DAILY PRN RECTAL SEVERE CONSITIPATION; Start at 12:00 Ciprofloxacin/ Dextrose 200 ml @ 200 mls/hr Q12H IV Last administered on at 12:38; Start 08/23/17 at 14:00 Flumazenil (Romazicon Inj) 0.2 mg Q1M PRN IV PUSH SEE LABEL COMMENTS; Start at 12:00 Lactulose (Lactulose Liq) 30 ml DAILY PRN PO SEVERE CONSITIPATION; Start at 12:00 Lorazepam (Ativan Inj) 2 mg Q15M PRN IV PUSH CIWA > 20; Start 08/23/17 at 12:00 Lorazepam (Ativan) 2 mg Q2H PRN PO CIWA 11-14; Start 08/23/17 at 12:00 Magnesium Hydroxide (Milk Of Magnesia Liq) 30 ml Q12H PRN PO Mild constipation ; Start 08/23/17 at 12:00 Magnesium Citrate (Citroma Liq) 300 ml ONCE ONCE PO Last administered on at 17:58; Start 08/23/17 at 18:00; Stop 08/23/17 at 18:01; Status DC Multivitamins 10 ml/Thiamine HCl 100 mg/Folic Acid 1 mg/Sodium Chloride 511.2 ml @ 125 mls/hr Q24H IV Last administered on 08/25/17at 12:38; Start 08/23/17 at 15:00 Naloxone HCl (Narcan Inj) 0.4 mg UNSCH PRN IV PUSH SEE LABEL COMMENTS; Start at 12:00 Octreotide Acetate 500 mcg/ Sodium Chloride 500 ml @ 50 mls/hr Q10H IV Last administered on 08/25/17at 09:08; Start 08/23/17 at 14:32 Ondansetron HCl (Zofran Inj) 4 mg Q6H PRN IV PUSH NAUSEA OR VOMITING; Start at 11:15 Pantoprazole Sodium (Protonix Inj) 40 mg ONCE ONCE IV PUSH Last administered on 08/23/17at 10:03; Start 08/23/17 at 09:45; Stop 08/23/17 at 09:46; Status DC Pantoprazole Sodium 80 mg/ Sodium Chloride 100 ml @ 10 mls/hr Q10H IV Last administered on 08/25/17at 09:01; Start 08/23/17 at 15:32 Phytonadione (Vitamin K Inj) 10 mg ONCE ONCE SQ Last administered on at 17:23; Start 08/24/17 at 17:00; Stop 08/24/17 at 17:01; Status DC Sennosides (Senokot) 17.2 mg Q12H PRN PO Moderate constipation; Start 08/23/17 at 12:00 Sodium Chloride 1,000 ml @ 125 mls/hr Q8H IV Last administered on 08/25/17at 01 :20; Start 08/23/17 at 12:00; Stop 08/25/17 at 10:43; Status DC Sodium Chloride (NS Flush) 2 ml BID IV FLUSH Last administered on 08/25/17at 09: 08; Start 08/23/17 at 21:00 Urinary Catheter: No Vascular Central Line Catheter: No A/P Assessment and Plan Patient is 51 year old male with cirrhosis and alcoholism who presents for acute blood loss anemia secondary to GIB. Gastroenterology consulted, patient to receive MIVF and is NPO, serial H&H, and close monitoring. Received 2 units of RBC in ED and responded appropriately. Status-post EGD/Colonoscopy on 08/24 per GI. Attending Attestation Expect discharge in 1-2 days, pending stability of GIB, Gastroenterology clearance (patient homeless, PT recommends home with no PT on 08/25) Problem List: (1) Severe anemia ICD Codes: D64.9 - Anemia, unspecified Status: Resolved Plan: Patient presented 08/23 with severe anemia associated with acute GI losses. Hgb on admission 6.3. He is s/p 2 unit PRBCs given in ED - Hbg improved to 8.4 and has been stable. * Gastroenterology consult - EGD s/f gastric varices, likely portal gastropathy * History of varices - started on Octreotide gtt on 08/23, continued * Protonix gtt continued * IVF @ approximately maintenance @ 125cc/hr NS 08/23-08/25 (discontinued AM on due to cirrhosis) (2) GI bleed ICD Codes: K92.2 - Gastrointestinal hemorrhage, unspecified Status: Acute Plan: Acute blood loss anemia secondary to GIB Plan as above (3) Alcohol withdrawal ICD Codes: F10.239 - Alcohol dependence with withdrawal, unspecified Status: Chronic Plan: * Heavy use, Etoh 19 on admission * CIWA protocol, not requiring medications at this time * IV Rally Pack 08/23 --> PO Multivitamins on 08/25 * Counseling on alcohol cessation provided (4) Cirrhosis of liver ICD Codes: K74.60 - Unspecified cirrhosis of liver Plan: * RUQ ultrasound on admission showed enlarged heterogeneous nodular liver suggesting cirrhosis, ascites, gallbladder wall thickening without stones * For SBP prophylaxis will start give Cipro 400 q12hr IV on 08/23 * Ammonia on admission elevated at 109-->159, start lactulose 30mg QID on 08/25 * Will give Lasix PRN for fluid overload, has ascites but stable (5) Fluids, Electrolytes, Nutrition, and Prophylaxis Status: Acute Plan: Fluids: NS @ 125cc/hr d/c'd 08/25 Electrolytes: monitor and replete as needed Nutrition: Heart healthy diet PPX: Hold dvt ppx given GIB, give SCDs Lines: 2 large bore IVs Disposition: expect 2-3 day hospitalization for anemia mgmt, GIB evaluation, alcohol withdrawal. CM consulted Problem Qualifiers (1) GI bleed: Qualified Codes: K92.1 - Melena (2) Alcohol withdrawal: Qualified Codes: F10.230 - Alcohol dependence with withdrawal, uncomplicated (3) Cirrhosis of liver: Qualified Codes: K70.31 - Alcoholic cirrhosis of liver with ascites Mary Kay Finley MD Aug 25, 2017 10:45
[2017-08-25] MEDS: MULTIVITAMIN INJ 10 ML, THIAMINE INJ 100 MG, FOLIC ACID INJ 1 MG in SODIUM CHLORID 0.9%... IV SCH (12:38)
--- NOTE | 2017-08-25 13:01 | HHI.GIFU ---
Subjective Remarks Resting in the bed States he got up and walked around in the room with physical therapy Mild dull left lower quadrant pain at times Patient is status post EGD and colonoscopy on 08/24/17 Mild low-grade fever at 0400 , 99.3 now resolved (Lexi Gonzalez) Objective Vitals I&O Vital Signs Date Time Temp Pulse Resp B/P (MAP) Pulse Ox O2 Delivery O2 Flow Rate FiO2 08/25/17 12:00 98.4 94 18 127/70 (89) 96 08/25/17 08:00 98.1 92 18 137/72 (93) 99 08/25/17 04:00 99.3 92 18 132/67 (88) 95 08/25/17 00:00 100.1 99 18 128/70 (89) 95 08/24/17 20:30 98 08/24/17 20:00 99.9 99 18 137/69 (91) 97 08/24/17 19:07 103 08/24/17 16:00 100.5 90 16 109/67 (81) 97 I/O 08/24/17 08/24/17 08/24/17 08/25/17 08/25/17 08/25/17 06:59 14:59 22:59 06:59 14:59 22:59 Intake Total 400 ml Output Total 600 ml 575 ml 625 ml 550 ml Balance -600 ml -575 ml -225 ml -550 ml Other 400 ml Output Urine Total 600 ml 575 ml 625 ml 550 ml # Voids 2 # Bowel Movements 1 Laboratory Laboratory Tests Test 08/24/17 19:20 08/25/17 09:24 Hemoglobin 8.2 8.9 Hematocrit 24.5 26.5 White Blood Count 2.5 Red Blood Count 2.97 Mean Corpuscular Volume 89.2 Mean Corpuscular Hemoglobin 29.8 Mean Corpuscular Hemoglobin Concent 33.4 Red Cell Distribution Width 20.5 Platelet Count 104 Mean Platelet Volume 7.8 Neutrophils (%) (Auto) 57.5 Lymphocytes (%) (Auto) 20.8 Monocytes (%) (Auto) 12.3 Eosinophils (%) (Auto) 6.9 Basophils (%) (Auto) 2.5 Neutrophils # (Auto) 1.4 Lymphocytes # (Auto) 0.5 Monocytes # (Auto) 0.3 Eosinophils # (Auto) 0.2 Basophils # (Auto) 0.1 CBC Comment DIFF FINAL Differential Comment Prothrombin Time 16.4 Prothromb Time International Ratio 1.6 Blood Urea Nitrogen 8 Creatinine 0.62 Random Glucose 154 Total Protein 6.0 Albumin 2.2 Calcium Level 7.3 Alkaline Phosphatase 129 Aspartate Amino Transf (AST/SGOT) 50 Alanine Aminotransferase (ALT/SGPT) 22 Total Bilirubin 4.0 Sodium Level 138 Potassium Level 3.5 Chloride Level 106 Carbon Dioxide Level 22.5 Anion Gap 10 Estimat Glomerular Filtration Rate 137 Protein Corrected Calcium 7.9 Ammonia 159 Imaging Last Impressions Liver Ultrasound 08/23/17 0000 Signed Impressions: Service Date/Time: Wednesday, August 23, 2017 12:15 - CONCLUSION: 1. Enlarged heterogeneous nodular liver suggesting cirrhosis. 2. Ascites. 3. Mild splenomegaly. 4. Gallbladder wall thickening without stones, pericholecystic fluid or sonographic Quiñones's sign. Clinical correlation is recommended to rule out subtle cholecystitis. Darwin Medina MD Chest X-Ray 08/23/17 0000 Signed Impressions: Service Date/Time: Wednesday, August 23, 2017 12:50 - CONCLUSION: 1. Focal linear atelectasis or scarring in the right lung base. 2. Otherwise, the lungs are clear bilaterally. Miles Harding MD Physical Exam HEENT: Pupils round and reactive to light; normocephalic; atraumatic; no jaundice. Throat is clear. NECK: Neck is supple, no JVD, no lymphadenopathy. CHEST: Chest is clear to auscultation and percussion. CARDIAC: Regular rate and rhythm with no murmur gallop or rubs. ABDOMEN: Taut ,Soft, mild to moderate distention, nontender except for left lower quadrant mild dull ache at times; bowel sounds are present in all four quadrants. EXTREMITIES: No lower extremity edema. SKIN: Hussein, Normal; no rash; no jaundice. TOLL LINE INSPECTOR: No focal deficits; alert and oriented times three. (Lexi Gonzalez) Assessment and Plan Plan Assessment: History - Rectal bleeding with severe anemia- states 22 episodes since yesterday. H/H 6.3/19.2 on admission, 2 U PRBCs have been ordered and are transfusing. History of GIB, seen by our service at [place]. EGD done by our service (08/04/17) --> Varices, 2 columns, stigmata of recent bleeding noted 2 bands applied successfully. Blood covering the entire stomach. Normal duodenum. Last colonoscopy in May of this year --> 2 small polyps in the rectum ablated, no sign of bleeding and no lesion to explain anemia. - Nausea and vomiting for the past 2 days, states small amount, report he "normally" has blood in her emesis - Cirrhosis- Liver US --> Enlarged heterogeneous nodular liver suggesting cirrhosis. Ascites. Mild splenomegaly. Gallbladder wall thickening without stones, pericholecystic fluid or sonographic Quiñones's sign. Platelets 133 Albumin 2.9 LFTs AST-59 ALT-31 Alk phos-188 T bili-3.5 DF-13 - Coagulopathy INR 1.4 - ETOH dependence. Pt states he has not been drinking alcohol because the person he lives with will not allow him however admits to having a few drinks before coming in to the hospital. H/H currently 6.3/19.2. 2 U PRBCs have been ordered. Has a different account in computer which previous information can be found in. Account under [id number] EGD colonoscopy on 08/24/17, results show Esophagitis reflux related Gastritis with probably some portal gastropathy Nodular duodenal bulb of unclear significance Normal colonoscopy 08/25/17 patient has mild left lower quadrant dull discomfort at times, discussed his bowel regimen and the need for DM at least every 3 days. No BM since colonoscopy. Activity increased up with physical therapy seems to be tolerating well. Low-grade fever decreased to 90 [id number] today no fever since. Should be able to DC IV Protonix and octreotide within the next 24 hours. PLAN: Await biopsies, plan on 7-10 day turnaround time Monitor hemoglobin currently stable at 8.9 High-fiber diet with low-salt Avoid alcohol , discussed with patient Bowel regimen PPI drip Further recommendations based on results of above Pt has been seen and examined by myself and Dr. Ventura and this note is written on his behalf (Lexi Gonzaelz) Physician Comments Patient seen and examined Agree with above Continue with current supportive care Monitor labs Okay to discontinue octreotide and Protonix drip and switch to oral Protonix (Rony Ventura MD) Lexi Gonzalez Aug 25, 2017 13:01 Rony Ventura MD Aug 25, 2017 23:20
[2017-08-25] MEDS: LACTULOSE SYRUP 20 GM/30 ML CUP PO SCH ×3 (15:50→23:17)
[2017-08-25 19:34] LABS: HEMATOCRIT 26.4 % (39.0-51.0); HEMOGLOBIN 8.7 GM/DL (13.0-17.0)
[2017-08-26] VITALS (12 sets, daily range): BP systolic 125–137; BP diastolic 68–81; PULSE 85–106; RESP 17–20; TEMP 98–98.7; O2SAT 94–97
[2017-08-26] MEDS: CIPROFLOXACIN 400 MG PREMIX 200 ML IV SCH ×2 (02:11→12:49)
[2017-08-26] MEDS: PANTOPRAZOLE INJ 80 MG in SODIUM CHLORIDE 0.9% INJ 100 ML IV SCH ×2 (02:11→13:12)
[2017-08-26] MEDS: OCTREOTIDE INJ 500 MCG in SODIUM CHLORID 0.9% 500 ML INJ 499.5 ML IV SCH ×2 (02:11→12:09)
[2017-08-26 04:17] LABS: AUTOMATED NEUTROPHIL # 1.3 TH/MM3 (1.8-7.7); BASOPHIL % 1.5 % (0.0-2.0); EOSINOPHIL # 0.2 TH/MM3 (0-0.4); HEMATOCRIT 24.5 % (39.0-51.0); HEMOGLOBIN 8.2 GM/DL (13.0-17.0); LYMPH % 28.8 % (9.0-44.0); LYMPHOCYTE # 0.8 TH/MM3 (1.0-4.8); MEAN CELL VOLUME 89.9 FL (80.0-100.0); MEAN CORPUSCULAR HEMOGLOBIN 30.2 PG (27.0-34.0); MEAN CORPUSCULAR HGB CONC 33.5 % (32.0-36.0); MEAN PLATELET VOLUME 7.6 FL (7.0-11.0); MONO % 15.1 % (0.0-8.0); MONOCYTE # 0.4 TH/MM3 (0-0.9); NEUT % 47.6 % (16.0-70.0); PLATELET COUNT 99 TH/MM3 (150-450); RED BLOOD COUNT 2.73 MIL/MM3 (4.50-5.90); RED CELL DISTRIBUTION WIDTH 20.1 % (11.6-17.2); WHITE BLOOD COUNT 2.7 TH/MM3 (4.0-11.0)
[2017-08-26 04:25] LABS: INTERNATIONAL NORMALIZED RATIO 1.7 RATIO; PROTHROMBIN TIME - PATIENT 16.7 SEC (9.8-11.6)
[2017-08-26 04:49] LABS: ALBUMIN 2.1 GM/DL (3.4-5.0); CALCIUM 7.2 MG/DL (8.5-10.1); CREATININE 0.62 MG/DL (0.60-1.30); TOTAL PROTEIN 5.6 GM/DL (6.4-8.2)
[2017-08-26] MEDS: SODIUM CHLORIDE 0.9% FLUSH 10 ML FLUSH IV FLUSH SCH ×2 (07:42→21:40)
[2017-08-26] MEDS: FOLIC ACID 1 MG TAB PO SCH (07:48)
[2017-08-26] MEDS: MULTIVITAMIN TAB PO SCH (07:48)
[2017-08-26] MEDS: THIAMINE HCL 100 MG TAB PO SCH (07:48)
[2017-08-26] MEDS: LACTULOSE SYRUP 20 GM/30 ML CUP PO SCH ×4 (07:49→21:40)
--- NOTE | 2017-08-26 10:12 | HHI.FPPN ---
Subjective Remarks No acute events overnight. Patient continues to complain of abdominal discomfort, stable. No nausea, vomiting or bloody bowel movements. Denies chest pain or shortness of breath. He was able to eat breakfast this morning with no difficulties. Objective Vitals Vital Signs Date Time Temp Pulse Resp B/P (MAP) Pulse Ox O2 Delivery O2 Flow Rate FiO2 08/26/17 09:01 89 08/26/17 07:41 98.0 93 20 129/79 (96) 94 08/26/17 04:00 98.3 88 19 137/81 (99) 96 08/26/17 00:30 93 08/26/17 00:00 98.7 90 17 130/71 (90) 95 08/25/17 20:30 105 08/25/17 20:00 98.9 96 18 133/74 (93) 95 08/25/17 16:00 98.7 86 18 134/72 (92) 97 08/25/17 15:24 89 08/25/17 12:00 98.4 94 18 127/70 (89) 96 I/O 08/25/17 08/25/17 08/25/17 08/26/17 08/26/17 08/26/17 07:00 15:00 23:00 07:00 15:00 23:00 Intake Total 480 ml Output Total 550 ml 450 ml 400 ml 650 ml Balance -550 ml 30 ml -400 ml -650 ml Intake Oral 480 ml Output Urine Total 550 ml 450 ml 400 ml 650 ml # Bowel Movements 0 2 0 Result Diagram: 08/26/17 0348 08/26/17 034 Objective Remarks GENERAL: Patient is lying in bed in no apparent distress. Normal speech with no confusion SKIN: No jaundice appreciated. No ecchymoses. Skin warm and dry. HEAD: Atraumatic. Normocephalic. No temporal or scalp tenderness. EYES: PEERLA. Extraocular motions intact. No scleral icterus. No injection or drainage. ENT: Nose without bleeding, purulent drainage or septal hematoma. Throat without erythema, tonsillar hypertrophy or exudate. Uvula midline. Airway patent. NECK: Trachea midline. No JVD or lymphadenopathy. Supple, nontender, no meningeal signs. CARDIOVASCULAR: Aortic area 3/6 murmur noted, nonradiating. Normal rate. 2+ pulses bilaterally in UEs and LEs. RESPIRATORY: Clear to auscultation. Breath sounds equal bilaterally. No wheezes , rales, or rhonchi. GASTROINTESTINAL: Abdomen distended but not tense. Globally tender to palpation including over the liver -improved from prior exams. Unable to palpate liver and spleen. No palpated masses. No guarding. MUSCULOSKELETAL: Extremities without clubbing, cyanosis, or edema. No joint tenderness, effusion, or edema noted. No calf tenderness. NEUROLOGICAL: Awake and alert. No tremors appreciated Cranial nerves II through XII grossly intact. Strength and sensation grossly intact. Normal speech. PYSCH: does not appear to respond to internal stimuli Procedures EGD 08/24/2017: Esophagitis, reflux-related gastritis with probably some portal gastropathy, nodular duodenal bulb of unclear significance Colonoscopy 08/24/2017: normal A/P Assessment and Plan Patient is 51 year old male with cirrhosis and alcoholism who presents for acute blood loss anemia secondary to GIB. Gastroenterology consulted, patient to receive MIVF and is NPO, serial H&H, and close monitoring. Received 2 units of RBC in ED and responded appropriately. Status-post EGD/Colonoscopy on 08/24 per GI. Discharge Planning Discharge pending clearance from GI. Currently still on Octreotide and IV PPI Problem List: (1) Severe anemia ICD Codes: D64.9 - Anemia, unspecified Status: Resolved Plan: Resolved Patient presented 08/23 with severe anemia associated with acute GI losses. Hgb on admission 6.3. He is s/p 2 unit PRBCs given in ED - Hbg improved to 8.4 and has been stable. * Gastroenterology consult - EGD s/f gastric varices, likely portal gastropathy * History of varices - started on Octreotide gtt on 08/23, continued * Protonix gtt continued * IVF @ approximately maintenance @ 125cc/hr NS 08/23-08/25 (discontinued AM on due to cirrhosis) (2) GI bleed ICD Codes: K92.2 - Gastrointestinal hemorrhage, unspecified Status: Acute Plan: Acute blood loss anemia secondary to GIB Plan as above (3) Cirrhosis of liver ICD Codes: K74.60 - Unspecified cirrhosis of liver Plan: * RUQ ultrasound on admission showed enlarged heterogeneous nodular liver suggesting cirrhosis, ascites, gallbladder wall thickening without stones * For SBP prophylaxis - Cipro 400 q12hr IV from 08/23 to 08/26 - DC'ing as SBP less likely * Ammonia on admission elevated at 109-->159, started lactulose 30mg QID on 08/25 , ammonia improved to 72 on 08/26 * Will give Lasix PRN for fluid overload, has ascites but stable (4) Alcohol withdrawal ICD Codes: F10.239 - Alcohol dependence with withdrawal, unspecified Status: Chronic Plan: * Heavy use, Etoh 19 on admission * CIWA protocol, not requiring medications at this time * IV Rally Pack 08/23 --> PO Multivitamins on 08/25 * Counseling on alcohol cessation provided (5) Fluids, Electrolytes, Nutrition, and Prophylaxis Status: Acute Plan: Fluids: No IVF at this time Electrolytes: monitor and replete as needed Nutrition: Heart healthy diet PPX: Hold dvt ppx given GIB, give SCDs, PPI IV drip Lines: 2 large bore IVs Disposition: expect 2-3 day hospitalization for anemia mgmt, GIB evaluation, alcohol withdrawal. CM consulted Problem Qualifiers (1) GI bleed: Qualified Codes: K92.1 - Melena (2) Cirrhosis of liver: Qualified Codes: K70.31 - Alcoholic cirrhosis of liver with ascites (3) Alcohol withdrawal: Qualified Codes: F10.230 - Alcohol dependence with withdrawal, uncomplicated Bran Munson MD R1 Aug 26, 2017 10:12
--- NOTE | 2017-08-26 14:58 | HHI.GIFU ---
Subjective Remarks Resting in the bed Encourage patient to sit on the side of the bed and increase his activity as much as tolerated Current hemoglobin 8.2 no obvious bleeding Lactulose effective with large diarrhea stool today Appetite fair to good but has to eat small amounts to control symptoms of bloating (Lexi Gonzalez) Objective Vitals I&O Vital Signs Date Time Temp Pulse Resp B/P (MAP) Pulse Ox O2 Delivery O2 Flow Rate FiO2 08/26/17 12:37 100 08/26/17 11:43 98.4 96 20 128/73 (91) 95 08/26/17 09:01 89 08/26/17 07:41 98.0 93 20 129/79 (96) 94 08/26/17 04:00 98.3 88 19 137/81 (99) 96 08/26/17 00:30 93 08/26/17 00:00 98.7 90 17 130/71 (90) 95 08/25/17 20:30 105 08/25/17 20:00 98.9 96 18 133/74 (93) 95 08/25/17 16:00 98.7 86 18 134/72 (92) 97 08/25/17 15:24 89 I/O 08/25/17 08/25/17 08/25/17 08/26/17 08/26/17 08/26/17 07:00 15:00 23:00 07:00 15:00 23:00 Intake Total 480 ml 200 ml Output Total 550 ml 450 ml 400 ml 650 ml 425 ml Balance -550 ml 30 ml -400 ml -650 ml -225 ml Intake Oral 480 ml IV Total 200 ml Output Urine Total 550 ml 450 ml 400 ml 650 ml 425 ml # Bowel Movements 0 2 0 Laboratory Laboratory Tests Test 08/25/17 18:25 08/26/17 03:48 Hemoglobin 8.7 8.2 Hematocrit 26.4 24.5 White Blood Count 2.7 Red Blood Count 2.73 Mean Corpuscular Volume 89.9 Mean Corpuscular Hemoglobin 30.2 Mean Corpuscular Hemoglobin Concent 33.5 Red Cell Distribution Width 20.1 Platelet Count 99 Mean Platelet Volume 7.6 Neutrophils (%) (Auto) 47.6 Lymphocytes (%) (Auto) 28.8 Monocytes (%) (Auto) 15.1 Eosinophils (%) (Auto) 7.0 Basophils (%) (Auto) 1.5 Neutrophils # (Auto) 1.3 Lymphocytes # (Auto) 0.8 Monocytes # (Auto) 0.4 Eosinophils # (Auto) 0.2 Basophils # (Auto) 0.0 CBC Comment AUTO DIFF Differential Comment AUTO DIFF CONFIRMED Platelet Estimate LOW Platelet Morphology Comment NORMAL Prothrombin Time 16.7 Prothromb Time International Ratio 1.7 Blood Urea Nitrogen 7 Creatinine 0.62 Random Glucose 122 Total Protein 5.6 Albumin 2.1 Calcium Level 7.2 Alkaline Phosphatase 131 Aspartate Amino Transf (AST/SGOT) 43 Alanine Aminotransferase (ALT/SGPT) 21 Total Bilirubin 3.0 Sodium Level 137 Potassium Level 3.5 Chloride Level 106 Carbon Dioxide Level 24.0 Anion Gap 7 Estimat Glomerular Filtration Rate 137 Protein Corrected Calcium 8.0 Ammonia 72 Imaging Last Impressions Liver Ultrasound 08/23/17 0000 Signed Impressions: Service Date/Time: Wednesday, August 23, 2017 12:15 - CONCLUSION: 1. Enlarged heterogeneous nodular liver suggesting cirrhosis. 2. Ascites. 3. Mild splenomegaly. 4. Gallbladder wall thickening without stones, pericholecystic fluid or sonographic Quiñones's sign. Clinical correlation is recommended to rule out subtle cholecystitis. Darwin Medina MD Chest X-Ray 08/23/17 0000 Signed Impressions: Service Date/Time: Wednesday, August 23, 2017 12:50 - CONCLUSION: 1. Focal linear atelectasis or scarring in the right lung base. 2. Otherwise, the lungs are clear bilaterally. Miles Harding MD Physical Exam HEENT: Pupils round and reactive to light; normocephalic; atraumatic NECK: Neck is supple, no JVD, no lymphadenopathy. CHEST: Chest is clear to obvious rhonchi or wheezing CARDIAC: Regular rate and rhythm ABDOMEN: Large, Taut , mild to moderate distention, nontender, no abdominal pain today bowel sounds are present in all four quadrants. EXTREMITIES: No lower extremity edema. SKIN: Hussein, Normal; no rash; no jaundice. PATTERNMAKER METAL BENCH: No focal deficits; alert and oriented times three. (Lexi Gonzalez) Assessment and Plan Assessment: (1) GI bleed ICD Codes: K92.2 - Gastrointestinal hemorrhage, unspecified Status: Acute (2) Cirrhosis of liver ICD Codes: K74.60 - Unspecified cirrhosis of liver (3) Alcohol withdrawal ICD Codes: F10.239 - Alcohol dependence with withdrawal, unspecified Status: Chronic (4) Bleeding from varicose vein ICD Codes: I83.899 - Varicose veins of unspecified lower extremity with other complications Status: Acute (5) Severe anemia ICD Codes: D64.9 - Anemia, unspecified Status: Resolved Plan Assessment: History - Rectal bleeding with severe anemia- states 22 episodes since yesterday. H/H 6.3/19.2 on admission, 2 U PRBCs have been ordered and are transfusing. History of GIB, seen by our service at [place]. EGD done by our service (08/04/17) --> Varices, 2 columns, stigmata of recent bleeding noted 2 bands applied successfully. Blood covering the entire stomach. Normal duodenum. Last colonoscopy in May of this year --> 2 small polyps in the rectum ablated, no sign of bleeding and no lesion to explain anemia. - Nausea and vomiting for the past 2 days, states small amount, report he "normally" has blood in her emesis - Cirrhosis- Liver US --> Enlarged heterogeneous nodular liver suggesting cirrhosis. Ascites. Mild splenomegaly. Gallbladder wall thickening without stones, pericholecystic fluid or sonographic Quiñones's sign. Platelets 133 Albumin 2.9 LFTs AST-59 ALT-31 Alk phos-188 T bili-3.5 DF-13 - Coagulopathy INR 1.4 - ETOH dependence. Pt states he has not been drinking alcohol because the person he lives with will not allow him however admits to having a few drinks before coming in to the hospital. H/H currently 6.3/19.2. 2 U PRBCs have been ordered. Has a different account in computer which previous information can be found in. Account under [id number] EGD colonoscopy on 08/24/17, results show Esophagitis reflux related Gastritis with probably some portal gastropathy Nodular duodenal bulb of unclear significance Normal colonoscopy 08/25/17 patient has mild left lower quadrant dull discomfort at times, discussed his bowel regimen and the need for DM at least every 3 days. No BM since colonoscopy. Activity increased up with physical therapy seems to be tolerating well. Low-grade fever decreased to 90 [id number] today no fever since. Should be able to DC IV Protonix and octreotide 08/26/17, patient is having diarrhea but this is probably secondary to his lactulose no obvious bleeding. Hemoglobin 8.2. Encourage small frequent feedings to control his symptoms of bloating PLAN: Await biopsies, plan on 7-10 day turnaround time High-fiber diet with low-salt, encourage small frequent feedings Avoid alcohol Bowel regimen, diarrhea secondary to lactulose PPI now oral Further recommendations based on results of above Pt has been seen and examined by myself and Dr. Ventura and this note is written on his behalf (Lexi Gonzalez) Physician Comments Patient seen and examined Agree with above Continue with current supportive care Monitor lab (Rony Ventura MD) Problem Qualifiers (1) GI bleed: Qualified Codes: K92.1 - Melena (2) Cirrhosis of liver: Qualified Codes: K70.31 - Alcoholic cirrhosis of liver with ascites (3) Alcohol withdrawal: Qualified Codes: F10.230 - Alcohol dependence with withdrawal, uncomplicated Lexi Gonzalez Aug 26, 2017 14:58 Rony Ventura MD Aug 26, 2017 17:47
[2017-08-27] VITALS (10 sets, daily range): BP systolic 116–134; BP diastolic 61–69; PULSE 66–97; RESP 18–20; TEMP 98.1–98.9; O2SAT 93–96
[2017-08-27 07:13] LABS: AUTOMATED NEUTROPHIL # 1.3 TH/MM3 (1.8-7.7); BASOPHIL % 1.7 % (0.0-2.0); EOSINOPHIL # 0.2 TH/MM3 (0-0.4); EOSINOPHIL % 7.8 % (0.0-4.0); HEMATOCRIT 25.5 % (39.0-51.0); HEMOGLOBIN 8.4 GM/DL (13.0-17.0); LYMPH % 28.7 % (9.0-44.0); LYMPHOCYTE # 0.8 TH/MM3 (1.0-4.8); MEAN CORPUSCULAR HEMOGLOBIN 29.6 PG (27.0-34.0); MEAN CORPUSCULAR HGB CONC 32.9 % (32.0-36.0); MEAN PLATELET VOLUME 7.6 FL (7.0-11.0); MONO % 15.8 % (0.0-8.0); MONOCYTE # 0.4 TH/MM3 (0-0.9); PLATELET COUNT 93 TH/MM3 (150-450); RED BLOOD COUNT 2.84 MIL/MM3 (4.50-5.90); RED CELL DISTRIBUTION WIDTH 21.1 % (11.6-17.2); WHITE BLOOD COUNT 2.8 TH/MM3 (4.0-11.0)
[2017-08-27 07:46] LABS: ALBUMIN 2.1 GM/DL (3.4-5.0); BICARBONATE 27.1 MEQ/L (21.0-32.0); CALCIUM 7.4 MG/DL (8.5-10.1); CALCIUM-PROTEIN CORRECTED 8.1 MG/DL (8.5-10.1); CREATININE 0.53 MG/DL (0.60-1.30); TOTAL BILIRUBIN ADULT 2.5 MG/DL (0.2-1.0); TOTAL PROTEIN 5.9 GM/DL (6.4-8.2)
[2017-08-27] MEDS: PANTOPRAZOLE SOD 40 MG DELAYED RELEASE TAB PO SCH (07:55)
[2017-08-27] MEDS: THIAMINE HCL 100 MG TAB PO SCH (07:55)
[2017-08-27] MEDS: SODIUM CHLORIDE 0.9% FLUSH 10 ML FLUSH IV FLUSH SCH ×2 (07:55→20:08)
[2017-08-27] MEDS: FOLIC ACID 1 MG TAB PO SCH (07:56)
[2017-08-27] MEDS: MULTIVITAMIN TAB PO SCH (07:56)
[2017-08-27] MEDS: LACTULOSE SYRUP 20 GM/30 ML CUP PO SCH ×4 (07:56→20:06)
--- NOTE | 2017-08-27 12:28 | HHI.GIFU ---
Subjective Remarks Pt c/o increasing abd distention making it difficult for him to breath and ambulate. No further bleeding. (Anny Lockhart) Objective Vitals I&O Vital Signs Date Time Temp Pulse Resp B/P (MAP) Pulse Ox O2 Delivery O2 Flow Rate FiO2 08/27/17 08:54 84 08/27/17 08:08 98.1 82 20 120/69 (86) 93 08/27/17 04:43 98.9 86 18 128/67 (87) 93 08/27/17 03:47 84 08/27/17 00:16 98.9 91 20 120/67 (84) 94 08/26/17 23:46 85 08/26/17 20:06 106 08/26/17 20:00 98.5 87 20 125/68 (87) 97 08/26/17 16:12 93 08/26/17 15:27 98.2 97 20 127/74 (91) 96 08/26/17 12:37 100 I/O 08/26/17 08/26/17 08/26/17 08/27/17 08/27/17 08/27/17 07:00 15:00 23:00 07:00 15:00 23:00 Intake Total 200 ml Output Total 650 ml 425 ml 250 ml 375 ml Balance -650 ml -225 ml -250 ml -375 ml IV Total 200 ml Output Urine Total 650 ml 425 ml 250 ml 375 ml # Bowel Movements 0 1 Laboratory Laboratory Tests Test 08/27/17 06:55 White Blood Count 2.8 Red Blood Count 2.84 Hemoglobin 8.4 Hematocrit 25.5 Mean Corpuscular Volume 90.0 Mean Corpuscular Hemoglobin 29.6 Mean Corpuscular Hemoglobin Concent 32.9 Red Cell Distribution Width 21.1 Platelet Count 93 Mean Platelet Volume 7.6 Neutrophils (%) (Auto) 46.0 Lymphocytes (%) (Auto) 28.7 Monocytes (%) (Auto) 15.8 Eosinophils (%) (Auto) 7.8 Basophils (%) (Auto) 1.7 Neutrophils # (Auto) 1.3 Lymphocytes # (Auto) 0.8 Monocytes # (Auto) 0.4 Eosinophils # (Auto) 0.2 Basophils # (Auto) 0.0 CBC Comment AUTO DIFF Differential Comment AUTO DIFF CONFIRMED Platelet Estimate LOW Platelet Morphology Comment NORMAL Blood Urea Nitrogen 7 Creatinine 0.53 Random Glucose 101 Total Protein 5.9 Albumin 2.1 Calcium Level 7.4 Alkaline Phosphatase 143 Aspartate Amino Transf (AST/SGOT) 38 Alanine Aminotransferase (ALT/SGPT) 20 Total Bilirubin 2.5 Sodium Level 140 Potassium Level 3.5 Chloride Level 107 Carbon Dioxide Level 27.1 Anion Gap 6 Estimat Glomerular Filtration Rate 164 Protein Corrected Calcium 8.1 Ammonia 69 Imaging Last Impressions Liver Ultrasound 08/23/17 0000 Signed Impressions: Service Date/Time: Wednesday, August 23, 2017 12:15 - CONCLUSION: 1. Enlarged heterogeneous nodular liver suggesting cirrhosis. 2. Ascites. 3. Mild splenomegaly. 4. Gallbladder wall thickening without stones, pericholecystic fluid or sonographic Quiñones's sign. Clinical correlation is recommended to rule out subtle cholecystitis. Darwin Medina MD Chest X-Ray 08/23/17 0000 Signed Impressions: Service Date/Time: Wednesday, August 23, 2017 12:50 - CONCLUSION: 1. Focal linear atelectasis or scarring in the right lung base. 2. Otherwise, the lungs are clear bilaterally. Miles Harding MD Physical Exam HEENT: PERRL; normocephalic; atraumatic CHEST: CTA CARDIAC: RRR ABDOMEN: distended, dull, tense, diff TTP, bs + EXTREMITIES: No lower extremity edema. SKIN: Hussein, Normal; no rash; no jaundice. APPLICATION SECURITY SPECIALIST: No focal deficits; alert and oriented times three. (Anny Lockhart BODY COMPONENT ENGINEER) Assessment and Plan Assessment: (1) GI bleed ICD Codes: K92.2 - Gastrointestinal hemorrhage, unspecified Status: Acute (2) Cirrhosis of liver ICD Codes: K74.60 - Unspecified cirrhosis of liver (3) Alcohol withdrawal ICD Codes: F10.239 - Alcohol dependence with withdrawal, unspecified Status: Chronic (4) Bleeding from varicose vein ICD Codes: I83.899 - Varicose veins of unspecified lower extremity with other complications Status: Acute (5) Severe anemia ICD Codes: D64.9 - Anemia, unspecified Status: Resolved Plan Assessment: History - Rectal bleeding with severe anemia- states 22 episodes since yesterday. H/H 6.3/19.2 on admission, 2 U PRBCs have been ordered and are transfusing. History of GIB, seen by our service at [place]. EGD done by our service (08/04/17) --> Varices, 2 columns, stigmata of recent bleeding noted 2 bands applied successfully. Blood covering the entire stomach. Normal duodenum. Last colonoscopy in May of this year --> 2 small polyps in the rectum ablated, no sign of bleeding and no lesion to explain anemia. - Nausea and vomiting for the past 2 days, states small amount, report he "normally" has blood in her emesis - Cirrhosis- Liver US --> Enlarged heterogeneous nodular liver suggesting cirrhosis. Ascites. Mild splenomegaly. Gallbladder wall thickening without stones, pericholecystic fluid or sonographic Quiñones's sign. Platelets 133 Albumin 2.9 LFTs AST-59 ALT-31 Alk phos-188 T bili-3.5 DF-13 - Coagulopathy INR 1.4 - ETOH dependence. Pt states he has not been drinking alcohol because the person he lives with will not allow him however admits to having a few drinks before coming in to the hospital. H/H currently 6.3/19.2. 2 U PRBCs have been ordered. Has a different account in computer which previous information can be found in. Account under [id number] EGD colonoscopy on 08/24/17, results show Esophagitis reflux related Gastritis with probably some portal gastropathy Nodular duodenal bulb of unclear significance Normal colonoscopy 08/25/17 patient has mild left lower quadrant dull discomfort at times, discussed his bowel regimen and the need for DM at least every 3 days. No BM since colonoscopy. Activity increased up with physical therapy seems to be tolerating well. Low-grade fever decreased to 90 [id number] today no fever since. Should be able to DC IV Protonix and octreotide 08/26/17, patient is having diarrhea but this is probably secondary to his lactulose no obvious bleeding. Hemoglobin 8.2. Encourage small frequent feedings to control his symptoms of bloating 08/27/17 no further bleeding. c/o increasing distention, is fairly tense on exam. bx pending. PLAN: vit k tonight paracentesis am rck INR tomorrow before paracentesis low salt diet etoh cessation PPI Pt has been seen and examined by myself and Dr. Ventura and this note is written on his behalf (Anny Lockhart) Physician Comments Patient seen and examined Agree with above Continue with current supportive care Monitor labs (Rony Ventura MD) Problem Qualifiers (1) GI bleed: Qualified Codes: K92.1 - Melena (2) Cirrhosis of liver: Qualified Codes: K70.31 - Alcoholic cirrhosis of liver with ascites (3) Alcohol withdrawal: Qualified Codes: F10.230 - Alcohol dependence with withdrawal, uncomplicated Anny Lockhart BODY COMPONENT ENGINEER Aug 27, 2017 12:28 Rony Ventura MD Aug 27, 2017 18:02
--- NOTE | 2017-08-27 14:21 | HHI.FPPN ---
Subjective Remarks Patient seen and examined bedside this morning. Patient continues to complain of abdominal bloating. He has continued to have 1-2 episodes of diarrhea daily and he is now feeling more gassy than normal. He continues to feel some heartburn and vague abdominal cramping. He has also continued to have mild nausea. He denies any blood in his bowel movements. He denies any chest pain/ arthritis breath/dizziness. No fever or chills. No acute events overnight. Objective Vitals Vital Signs Date Time Temp Pulse Resp B/P (MAP) Pulse Ox O2 Delivery O2 Flow Rate FiO2 08/27/17 12:43 98.5 91 20 134/69 (90) 95 08/27/17 12:36 93 08/27/17 08:54 84 08/27/17 08:08 98.1 82 20 120/69 (86) 93 08/27/17 04:43 98.9 86 18 128/67 (87) 93 08/27/17 03:47 84 08/27/17 00:16 98.9 91 20 120/67 (84) 94 08/26/17 23:46 85 08/26/17 20:06 106 08/26/17 20:00 98.5 87 20 125/68 (87) 97 08/26/17 16:12 93 08/26/17 15:27 98.2 97 20 127/74 (91) 96 I/O 08/26/17 08/26/17 08/26/17 08/27/17 08/27/17 08/27/17 06:59 14:59 22:59 06:59 14:59 22:59 Intake Total 200 ml Output Total 650 ml 425 ml 250 ml 375 ml Balance -650 ml -225 ml -250 ml -375 ml IV Total 200 ml Output Urine Total 650 ml 425 ml 250 ml 375 ml # Bowel Movements 0 1 Result Diagram: 08/27/17 0655 08/27/17 0655 Objective Remarks GENERAL: Patient is lying in bed in no apparent distress. Normal speech with no confusion SKIN: No jaundice appreciated. No ecchymoses. Skin warm and dry. HEAD: Atraumatic. Normocephalic. No temporal or scalp tenderness. EYES: PEERLA. Extraocular motions intact. No scleral icterus. No injection or drainage. ENT: Nose without bleeding, purulent drainage or septal hematoma. Throat without erythema, tonsillar hypertrophy or exudate. Uvula midline. Airway patent. NECK: Trachea midline. No JVD or lymphadenopathy. Supple, nontender, no meningeal signs. CARDIOVASCULAR: Aortic area 3/6 murmur noted, nonradiating. Normal rate. 2+ pulses bilaterally in UEs and LEs. RESPIRATORY: Breath sounds equal bilaterally. Wheezing on inspiration and expiration. GASTROINTESTINAL: Abdomen distended but not tense. Tender to palpation over epigastric area. Unable to palpate liver and spleen. No palpated masses. No guarding. No peritoneal signs. No rebound tenderness. MUSCULOSKELETAL: Extremities without clubbing, cyanosis, or edema. No joint tenderness, effusion, or edema noted. No calf tenderness. NEUROLOGICAL: Awake and alert. No tremors appreciated Cranial nerves II through XII grossly intact. Strength and sensation grossly intact. Normal speech. PYSCH: does not appear to respond to internal stimuli Procedures EGD 08/24/2017: Esophagitis, reflux-related gastritis with probably some portal gastropathy, nodular duodenal bulb of unclear significance Colonoscopy 08/24/2017: normal A/P Assessment and Plan Patient is 51 year old male with cirrhosis and alcoholism who presents for acute blood loss anemia secondary to GIB. Gastroenterology consulted, status post EGD colonoscopy on 08/24, planned for paracentesis in the morning (08/28). Discharge Planning Discharge pending clinical improvement and evaluation of distention Problem List: (1) Severe anemia ICD Codes: D64.9 - Anemia, unspecified Status: Resolved Plan: Resolved Patient presented 08/23 with severe anemia associated with acute GI losses. Hgb on admission 6.3. He is s/p 2 unit PRBCs given in ED - Hbg improved to 8.4 and has been stable. * Gastroenterology consult - EGD s/f gastric varices, likely portal gastropathy * History of varices -previously on octreotide and IV PPI, transition to by mouth PPI * IVF have been discontinued due to cirrhosis (2) GI bleed ICD Codes: K92.2 - Gastrointestinal hemorrhage, unspecified Status: Acute Plan: Acute blood loss anemia secondary to GIB Plan as above (3) Cirrhosis of liver ICD Codes: K74.60 - Unspecified cirrhosis of liver Plan: * RUQ ultrasound on admission showed enlarged heterogeneous nodular liver suggesting cirrhosis, ascites, gallbladder wall thickening without stones * For SBP prophylaxis - Cipro 400 q12hr IV from 3/28 to 08/26 - DC'ing as SBP less likely * Ammonia on admission elevated at 109-->159, started lactulose 30mg QID on 08/25 , ammonia improved to 72 on 08/26 * Will give Lasix PRN for fluid overload, has ascites but stable (4) Alcohol withdrawal ICD Codes: F10.239 - Alcohol dependence with withdrawal, unspecified Status: Chronic Plan: * Heavy use, Etoh 19 on admission * CIWA protocol, not requiring medications at this time * IV Rally Pack 08/23 --> PO Multivitamins on 08/25 * Counseling on alcohol cessation provided (5) Fluids, Electrolytes, Nutrition, and Prophylaxis Status: Acute Plan: Fluids: No IVF at this time Electrolytes: monitor and replete as needed Nutrition: Heart healthy diet PPX: Hold dvt ppx given GIB, give SCDs, PPI IV drip Lines: 2 large bore IVs Disposition: expect 2-3 day hospitalization for anemia mgmt, GIB evaluation, alcohol withdrawal. CM consulted Problem Qualifiers (1) GI bleed: Qualified Codes: K92.1 - Melena (2) Cirrhosis of liver: Qualified Codes: K70.31 - Alcoholic cirrhosis of liver with ascites (3) Alcohol withdrawal: Qualified Codes: F10.230 - Alcohol dependence with withdrawal, uncomplicated Bonita Lau MD R2 Aug 27, 2017 14:21
[2017-08-27] MEDS ORDERED: PHYTONADIONE 5 MG/SWFI 5 ML ORAL SYR PO ONE (20:00)
[2017-08-28] VITALS (11 sets, daily range): BP systolic 111–130; BP diastolic 57–69; PULSE 80–98; RESP 16–20; TEMP 97.2–98.9; O2SAT 92–97
[2017-08-28] MEDS: MULTIVITAMIN TAB PO SCH (09:00)
[2017-08-28] MEDS: PANTOPRAZOLE SOD 40 MG DELAYED RELEASE TAB PO SCH (09:32)
[2017-08-28] MEDS: FOLIC ACID 1 MG TAB PO SCH (09:32)
[2017-08-28] MEDS: THIAMINE HCL 100 MG TAB PO SCH (09:33)
[2017-08-28] MEDS: LACTULOSE SYRUP 20 GM/30 ML CUP PO SCH ×4 (09:34→20:22)
[2017-08-28] MEDS: SODIUM CHLORIDE 0.9% FLUSH 10 ML FLUSH IV FLUSH SCH ×2 (09:34→20:22)
[2017-08-28 11:01] LABS: AUTOMATED NEUTROPHIL # 1.3 TH/MM3 (1.8-7.7); BASOPHIL % 1.1 % (0.0-2.0); EOSINOPHIL # 0.2 TH/MM3 (0-0.4); EOSINOPHIL % 6.7 % (0.0-4.0); HEMATOCRIT 27.5 % (39.0-51.0); HEMOGLOBIN 8.9 GM/DL (13.0-17.0); LYMPH % 28.5 % (9.0-44.0); LYMPHOCYTE # 0.8 TH/MM3 (1.0-4.8); MEAN CELL VOLUME 91.4 FL (80.0-100.0); MEAN CORPUSCULAR HEMOGLOBIN 29.7 PG (27.0-34.0); MEAN CORPUSCULAR HGB CONC 32.5 % (32.0-36.0); MONOCYTE # 0.4 TH/MM3 (0-0.9); NEUT % 47.7 % (16.0-70.0); PLATELET COUNT 90 TH/MM3 (150-450); RED BLOOD COUNT 3.01 MIL/MM3 (4.50-5.90); RED CELL DISTRIBUTION WIDTH 21.8 % (11.6-17.2); WHITE BLOOD COUNT 2.7 TH/MM3 (4.0-11.0)
[2017-08-28 11:23] LABS: ALBUMIN 2.2 GM/DL (3.4-5.0); AST (GOT) 40 U/L (15-37); BICARBONATE 26.7 MEQ/L (21.0-32.0); BLOOD UREA NITROGEN 8 MG/DL (7-18); CALCIUM 7.7 MG/DL (8.5-10.1); CHLORIDE 105 MEQ/L (98-107); CREATININE 0.59 MG/DL (0.60-1.30); GLOMERULAR FILTRATION RATE 145 ML/MIN (>89); GLUCOSE,RANDOM 187 MG/DL (74-106); SODIUM (NA) 138 MEQ/L (136-145)
[2017-08-28 11:24] LABS: ALT (GPT) 20 U/L (12-78)
[2017-08-28 11:26] LABS: ALKALINE PHOSPHATASE 146 U/L (45-117); TOTAL BILIRUBIN ADULT 2.3 MG/DL (0.2-1.0)
[2017-08-28 12:04] LABS: ACANTHOCYTES OCC (NORMAL); OVALOCYTES 1+ (NORMAL)
[2017-08-28] MEDS ORDERED: LIDOCAINE HCL 1% PF 30 ML VIAL ONE (12:21)
--- NOTE | 2017-08-28 12:29 | RADRPT ---
EXAM DATE/TIME: 08/28/2017 08:49 [facility] COMPARISON: No previous studies available for comparison. INDICATIONS : Ascites. Anesthesia and pain control was provided by the Anesthesia department. MEDICAL HISTORY : Cirrhosis. Odynophagia. Seizures. Palpitations. Dyspnea. Melena. Ascites. PTSD. Anxiety. Substance use. Tobacco use. SURGICAL HISTORY : Blood transfusions. ENCOUNTER: Initial ACUITY: 1 week PAIN SCORE: 0/10 LOCATION: Right lower quadrant FLUID: Total volume of 4,400 cc of cloudy, yellow fluid was removed. Fluid was sent to lab for ordered studies. Post procedure scanning reveals no hematoma or other complication. TECHNIQUE: 1. Ultrasound guidance for abdominal paracentesis. 2. Paracentesis. The risks, benefits, and alternatives to ultrasound guided paracentesis were explained to the patient in detail including the risk of bleeding and infection. Written and verbal informed consent was obt ained. With the patient on the ultrasound table, ultrasound imaging was used to select the most appropriate approach for paracentesis. Overlying skin was prepped and draped in the usual sterile fashion and wi th a local anesthetic, a dermatotomy was made with an 11 blade scalpel. A 6 [place] [id number] ca theter was introduced into the peritoneal cavity and fluid was collected. The patient tolerated the procedure well and left the ultrasound suite in stable condition. CONCLUSION: Uncomplicated ultrasound guided paracentesis. Siva Stokes MD on August 28, 2017 at 12:20 Board Certified Radiologist. This report was verified electronically.
[2017-08-28 13:34] LABS: TOTAL PROTEIN,PERITONEAL FLUID 0.6 GM/DL
[2017-08-28 13:38] LABS: INTERNATIONAL NORMALIZED RATIO 1.6 RATIO; PROTHROMBIN TIME - PATIENT 16.4 SEC (9.8-11.6)
[2017-08-28 13:45] LABS: PERITONEAL RBC 34 /MM3 (0-0)
[2017-08-28 13:50] LABS: PERITONEAL EOS 1 %; PERITONEAL HISTIOCYTES 50 %; PERITONEAL LYMPHS 25 %; PERITONEAL MESOTHELIAL 5 %; PERITONEAL MONOS 16 %; PERITONEAL POLYS(SEGS) 3 %
--- NOTE | 2017-08-28 14:45 | HHI.GIFU ---
Subjective Remarks pt resting in bed, eating lunch, friend at bedside. pt is s/p paracentesis, reporting improved abd discomfort and distention. He wants to ambulate but says OT won't let him get out of bed. (Anny Lockhart) Objective Vitals I&O Vital Signs Date Time Temp Pulse Resp B/P (MAP) Pulse Ox O2 Delivery O2 Flow Rate FiO2 08/28/17 12:05 98.4 81 16 128/65 (86) 92 08/28/17 11:50 98.9 80 16 125/69 (87) 92 08/28/17 11:13 96 08/28/17 10:50 98.3 91 16 119/63 (81) 95 08/28/17 08:25 97.9 81 20 127/61 (83) 94 08/28/17 05:27 97.2 86 20 122/59 (80) 94 08/28/17 05:02 98 08/28/17 05:02 88 08/28/17 00:52 98.8 91 20 111/62 (78) 94 08/27/17 20:38 98.4 97 20 125/61 (82) 96 08/27/17 16:56 98.1 91 20 116/65 (82) 96 08/27/17 16:38 66 I/O 08/27/17 08/27/17 08/27/17 08/28/17 08/28/17 08/28/17 07:00 15:00 23:00 07:00 15:00 23:00 Intake Total 720 ml Output Total 375 ml 325 ml Balance -375 ml 395 ml Intake Oral 720 ml Output Urine Total 375 ml 325 ml # Voids 3 # Bowel Movements 3 Laboratory Laboratory Tests Test 08/28/17 10:03 08/28/17 11:10 08/28/17 13:08 White Blood Count 2.7 Red Blood Count 3.01 Hemoglobin 8.9 Hematocrit 27.5 Mean Corpuscular Volume 91.4 Mean Corpuscular Hemoglobin 29.7 Mean Corpuscular Hemoglobin Concent 32.5 Red Cell Distribution Width 21.8 Platelet Count 90 Mean Platelet Volume 8.0 Neutrophils (%) (Auto) 47.7 Lymphocytes (%) (Auto) 28.5 Monocytes (%) (Auto) 16.0 Eosinophils (%) (Auto) 6.7 Basophils (%) (Auto) 1.1 Neutrophils # (Auto) 1.3 Lymphocytes # (Auto) 0.8 Monocytes # (Auto) 0.4 Eosinophils # (Auto) 0.2 Basophils # (Auto) 0.0 CBC Comment AUTO DIFF Differential Comment AUTO DIFF CONFIRMED Platelet Estimate LOW Platelet Morphology Comment NORMAL Ovalocytes 1+ Acanthocytes OCC Blood Urea Nitrogen 8 Creatinine 0.59 Random Glucose 187 Total Protein 6.0 Albumin 2.2 Calcium Level 7.7 Alkaline Phosphatase 146 Aspartate Amino Transf (AST/SGOT) 40 Alanine Aminotransferase (ALT/SGPT) 20 Total Bilirubin 2.3 Sodium Level 138 Potassium Level 3.7 Chloride Level 105 Carbon Dioxide Level 26.7 Anion Gap 6 Estimat Glomerular Filtration Rate 145 Peritoneal Fluid WBC 102 Peritoneal Fluid RBC 34 Peritoneal Fluid Neutrophils 3 Peritoneal Fluid Lymphocytes 25 Peritoneal Fluid Monocytes 16 Peritoneal Fluid Eosinophils 1 Peritoneal Fluid Histiocytes 50 Peritoneal Fluid Mesothelial Cells 5 Peritoneal Fluid Comment Peritoneal Fluid Total Protein 0.6 Peritoneal Fluid Albumin 0.3 Peritoneal Fluid LDH 32 Peritoneal Fluid Glucose 134 Prothrombin Time 16.4 Prothromb Time International Ratio 1.6 Activated Partial Thromboplast Time 25.9 Date/Time Source Procedure Growth Status 08/28/17 11:10 Fluid Peritoneal Fluid Gram Stain Pending Received 08/28/17 11:10 Fluid Peritoneal Fluid Body Fluid Culture Pending Received Imaging Last Impressions Cyst Biopsy Asp-Paracentesis US 08/28/17 0600 Signed Impressions: Service Date/Time: Monday, August 28, 2017 08:49 - CONCLUSION: Uncomplicated ultrasound guided paracentesis. Siva Stokes MD Liver Ultrasound 08/23/17 0000 Signed Impressions: Service Date/Time: Wednesday, August 23, 2017 12:15 - CONCLUSION: 1. Enlarged heterogeneous nodular liver suggesting cirrhosis. 2. Ascites. 3. Mild splenomegaly. 4. Gallbladder wall thickening without stones, pericholecystic fluid or sonographic Quiñones's sign. Clinical correlation is recommended to rule out subtle cholecystitis. Darwin Medina MD Chest X-Ray 08/23/17 0000 Signed Impressions: Service Date/Time: Wednesday, August 23, 2017 12:50 - CONCLUSION: 1. Focal linear atelectasis or scarring in the right lung base. 2. Otherwise, the lungs are clear bilaterally. Miles Harding MD Physical Exam HEENT: PERRL; normocephalic; atraumatic CHEST: CTA CARDIAC: RRR ABDOMEN: distended but less so today, soft, nontender, bs + EXTREMITIES: No lower extremity edema. SKIN: Normal; no rash; no jaundice. LINING FELLER BLINDSTITCH: No focal deficits; alert and oriented times three. (Anny Lockhart) Assessment and Plan Assessment: (1) GI bleed ICD Codes: K92.2 - Gastrointestinal hemorrhage, unspecified Status: Acute (2) Cirrhosis of liver ICD Codes: K74.60 - Unspecified cirrhosis of liver (3) Alcohol withdrawal ICD Codes: F10.239 - Alcohol dependence with withdrawal, unspecified Status: Chronic (4) Bleeding from varicose vein ICD Codes: I83.899 - Varicose veins of unspecified lower extremity with other complications Status: Acute (5) Severe anemia ICD Codes: D64.9 - Anemia, unspecified Status: Resolved Plan Assessment: History - Rectal bleeding with severe anemia- states 22 episodes since yesterday. H/H 6.3/19.2 on admission, 2 U PRBCs have been ordered and are transfusing. History of GIB, seen by our service at [place]. EGD done by our service (08/04/17) --> Varices, 2 columns, stigmata of recent bleeding noted 2 bands applied successfully. Blood covering the entire stomach. Normal duodenum. Last colonoscopy in May of this year --> 2 small polyps in the rectum ablated, no sign of bleeding and no lesion to explain anemia. - Nausea and vomiting for the past 2 days, states small amount, report he "normally" has blood in her emesis - Cirrhosis- Liver US --> Enlarged heterogeneous nodular liver suggesting cirrhosis. Ascites. Mild splenomegaly. Gallbladder wall thickening without stones, pericholecystic fluid or sonographic Quiñones's sign. Platelets 133 Albumin 2.9 LFTs AST-59 ALT-31 Alk phos-188 T bili-3.5 DF-13 - Coagulopathy INR 1.4 - ETOH dependence. Pt states he has not been drinking alcohol because the person he lives with will not allow him however admits to having a few drinks before coming in to the hospital. H/H currently 6.3/19.2. 2 U PRBCs have been ordered. Has a different account in computer which previous information can be found in. Account under [id number] EGD colonoscopy on 08/24/17, results show Esophagitis reflux related Gastritis with probably some portal gastropathy Nodular duodenal bulb of unclear significance Normal colonoscopy 08/25/17 patient has mild left lower quadrant dull discomfort at times, discussed his bowel regimen and the need for DM at least every 3 days. No BM since colonoscopy. Activity increased up with physical therapy seems to be tolerating well. Low-grade fever decreased to 90 [id number] today no fever since. Should be able to DC IV Protonix and octreotide 08/26/17, patient is having diarrhea but this is probably secondary to his lactulose no obvious bleeding. Hemoglobin 8.2. Encourage small frequent feedings to control his symptoms of bloating 08/27/17 no further bleeding. c/o increasing distention, is fairly tense on exam. bx pending. 08/28/17 s/p paracentesis, 4400cc removed. cytology, cx pending. EGD bx still pending. PLAN: await peritoneal fluid cytology and cx await EGD biopsy results low salt diet etoh cessation PPI Pt has been seen and examined by myself and Dr. Clemente and this note is written on his behalf (Anny Lockhart) Physician Comments Seen and examined with [facility], doing ok s/p paracentesis. Needs to quit ETOH. GI will sign off. GI fu upon dc. Thank you (Henrietta Clemente MD) Problem Qualifiers (1) GI bleed: Qualified Codes: K92.1 - Melena (2) Cirrhosis of liver: Qualified Codes: K70.31 - Alcoholic cirrhosis of liver with ascites (3) Alcohol withdrawal: Qualified Codes: F10.230 - Alcohol dependence with withdrawal, uncomplicated Anny Lockhart Aug 28, 2017 14:44 Henrietta Clemente MD Aug 28, 2017 18:18
--- NOTE | 2017-08-28 15:48 | HHI.FPPN ---
Subjective Remarks Doing well after paracentesis. Feeling lightheaded from local anesthesia. Abdomen less tense. No fevers. Objective Vitals Vital Signs Date Time Temp Pulse Resp B/P (MAP) Pulse Ox O2 Delivery O2 Flow Rate FiO2 08/28/17 15:47 98.8 88 20 116/61 (79) 97 08/28/17 12:05 98.4 81 16 128/65 (86) 92 08/28/17 11:50 98.9 80 16 125/69 (87) 92 08/28/17 11:13 96 08/28/17 10:50 98.3 91 16 119/63 (81) 95 08/28/17 08:25 97.9 81 20 127/61 (83) 94 08/28/17 05:27 97.2 86 20 122/59 (80) 94 08/28/17 05:02 98 08/28/17 05:02 88 08/28/17 00:52 98.8 91 20 111/62 (78) 94 08/27/17 20:38 98.4 97 20 125/61 (82) 96 08/27/17 16:56 98.1 91 20 116/65 (82) 96 08/27/17 16:38 66 I/O 08/27/17 08/27/17 08/27/17 08/28/17 08/28/17 08/28/17 07:00 15:00 23:00 07:00 15:00 23:00 Intake Total 720 ml Output Total 375 ml 325 ml Balance -375 ml 395 ml Intake Oral 720 ml Output Urine Total 375 ml 325 ml # Voids 3 # Bowel Movements 3 Result Diagram: 08/28/17 1003 08/28/17 1003 Objective Remarks GENERAL: Patient is lying in bed in no apparent distress. Normal speech with no confusion. SKIN: No jaundice appreciated. No ecchymoses. Skin warm and dry. HEAD: Atraumatic. Normocephalic. No temporal or scalp tenderness. EYES: PEERLA. Extraocular motions intact. No scleral icterus. No injection or drainage. ENT: Nose without bleeding, purulent drainage or septal hematoma. Throat without erythema, tonsillar hypertrophy or exudate. Uvula midline. Airway patent. NECK: Trachea midline. No JVD or lymphadenopathy. Supple, nontender, no meningeal signs. CARDIOVASCULAR: Aortic area 3/6 murmur noted, nonradiating. Normal rate. 2+ pulses bilaterally in UEs and LEs. RESPIRATORY: Breath sounds equal bilaterally. Wheezing on inspiration and expiration. GASTROINTESTINAL: Abdomen distended but not tense. Tender to palpation over epigastric area. Unable to palpate liver and spleen. No palpated masses. No guarding. No peritoneal signs. No rebound tenderness. MUSCULOSKELETAL: Extremities without clubbing, cyanosis, or edema. No joint tenderness, effusion, or edema noted. No calf tenderness. NEUROLOGICAL: Awake and alert. No tremors appreciated Cranial nerves II through XII grossly intact. Strength and sensation grossly intact. Normal speech. PYSCH: does not appear to respond to internal stimuli Procedures EGD 08/24/2017: Esophagitis, reflux-related gastritis with probably some portal gastropathy, nodular duodenal bulb of unclear significance Colonoscopy 08/24/2017: normal A/P Assessment and Plan Patient is 51 year old male with cirrhosis and alcoholism who presents for acute blood loss anemia secondary to GIB. Gastroenterology consulted, status post EGD colonoscopy on 08/24, s/p paracentesis 08/28. Discharge Planning Discharge pending clinical improvement and evaluation of distention Problem List: (1) Severe anemia ICD Codes: D64.9 - Anemia, unspecified Status: Resolved Plan: Resolved Patient presented 08/23 with severe anemia associated with acute GI losses. Hgb on admission 6.3. He is s/p 2 unit PRBCs given in ED - Hbg improved to 8.4 and has been stable. * Gastroenterology consult - EGD s/f gastric varices, likely portal gastropathy * History of varices -previously on octreotide and IV PPI, transition to by mouth PPI * IVF have been discontinued due to cirrhosis (2) GI bleed ICD Codes: K92.2 - Gastrointestinal hemorrhage, unspecified Status: Acute Plan: Acute blood loss anemia secondary to GIB Plan as above (3) Cirrhosis of liver ICD Codes: K74.60 - Unspecified cirrhosis of liver Plan: * RUQ ultrasound on admission showed enlarged heterogeneous nodular liver suggesting cirrhosis, ascites, gallbladder wall thickening without stones * For SBP prophylaxis - Cipro 400 q12hr IV from 08/23 to 08/26 - DCed as SBP less likely * Ammonia on admission elevated at 109-->159, started lactulose 30mg QID on 08/25 , ammonia improved to 72 on 08/26 * Will give Lasix PRN for fluid overload, has ascites but stable (4) Alcohol withdrawal ICD Codes: F10.239 - Alcohol dependence with withdrawal, unspecified Status: Chronic Plan: * Heavy use, Etoh 19 on admission * [facility] protocol, not requiring medications at this time * IV Rally Pack 08/23 --> PO Multivitamins on 08/25 * Counseling on alcohol cessation provided (5) Fluids, Electrolytes, Nutrition, and Prophylaxis Status: Acute Plan: Fluids: No IVF at this time Electrolytes: monitor and replete as needed Nutrition: Heart healthy diet PPX: Hold dvt ppx given GIB, give SCDs, PPI IV drip Lines: 2 large bore IVs Disposition: expect 2-3 day hospitalization for anemia mgmt, GIB evaluation, alcohol withdrawal. CM consulted Problem Qualifiers (1) GI bleed: Qualified Codes: K92.1 - Melena (2) Cirrhosis of liver: Qualified Codes: K70.31 - Alcoholic cirrhosis of liver with ascites (3) Alcohol withdrawal: Qualified Codes: F10.230 - Alcohol dependence with withdrawal, uncomplicated Tank Hinds MD, R3 Aug 28, 2017 15:48
[2017-08-29] VITALS (9 sets, daily range): BP systolic 101–128; BP diastolic 47–59; PULSE 79–95; RESP 16–20; TEMP 97.8–98.5; O2SAT 94–96
[2017-08-29 08:17] LABS: AUTOMATED NEUTROPHIL # 1.1 TH/MM3 (1.8-7.7); BASOPHIL # 0.1 TH/MM3 (0-0.2); EOSINOPHIL # 0.2 TH/MM3 (0-0.4); EOSINOPHIL % 6.5 % (0.0-4.0); HEMATOCRIT 26.6 % (39.0-51.0); HEMOGLOBIN 8.8 GM/DL (13.0-17.0); LYMPH % 32.1 % (9.0-44.0); LYMPHOCYTE # 0.9 TH/MM3 (1.0-4.8); MEAN CELL VOLUME 90.1 FL (80.0-100.0); MEAN CORPUSCULAR HEMOGLOBIN 29.7 PG (27.0-34.0); MEAN PLATELET VOLUME 7.9 FL (7.0-11.0); MONO % 17.2 % (0.0-8.0); MONOCYTE # 0.5 TH/MM3 (0-0.9); NEUT % 42.2 % (16.0-70.0); PLATELET COUNT 86 TH/MM3 (150-450); RED BLOOD COUNT 2.95 MIL/MM3 (4.50-5.90); RED CELL DISTRIBUTION WIDTH 20.9 % (11.6-17.2); WHITE BLOOD COUNT 2.7 TH/MM3 (4.0-11.0)
[2017-08-29 08:48] LABS: ALKALINE PHOSPHATASE 171 U/L (45-117); ALT (GPT) 18 U/L (12-78); AST (GOT) 36 U/L (15-37); BICARBONATE 27.5 MEQ/L (21.0-32.0); BLOOD UREA NITROGEN 8 MG/DL (7-18); CALCIUM 7.6 MG/DL (8.5-10.1); CHLORIDE 106 MEQ/L (98-107); CREATININE 0.61 MG/DL (0.60-1.30); GLOMERULAR FILTRATION RATE 139 ML/MIN (>89); GLUCOSE,RANDOM 134 MG/DL (74-106); SODIUM (NA) 140 MEQ/L (136-145); TOTAL BILIRUBIN ADULT 1.7 MG/DL (0.2-1.0); TOTAL PROTEIN 5.7 GM/DL (6.4-8.2)
[2017-08-29] MEDS: MULTIVITAMIN TAB PO SCH (09:04)
[2017-08-29] MEDS: FOLIC ACID 1 MG TAB PO SCH (09:04)
[2017-08-29] MEDS: PANTOPRAZOLE SOD 40 MG DELAYED RELEASE TAB PO SCH (09:04)
[2017-08-29] MEDS: SODIUM CHLORIDE 0.9% FLUSH 10 ML FLUSH IV FLUSH SCH ×2 (09:05→20:26)
[2017-08-29] MEDS: LACTULOSE SYRUP 20 GM/30 ML CUP PO SCH ×4 (09:05→20:26)
[2017-08-29] MEDS: THIAMINE HCL 100 MG TAB PO SCH (09:05)
[2017-08-29 09:13] LABS: ACANTHOCYTES OCC (NORMAL); OVALOCYTES 1+ (NORMAL)
--- NOTE | 2017-08-29 11:15 | HHI.FPPN ---
Subjective Remarks Patient seen and examined bedside today. Patient is status post paracentesis yesterday, and he states that his abdominal pain and bloating is 50% better. He denies any nausea or vomiting. He is eating and drinking without difficulty. He does wish that the bloating had gone down even more than it did. Objective Vitals Vital Signs Date Time Temp Pulse Resp B/P (MAP) Pulse Ox O2 Delivery O2 Flow Rate FiO2 08/29/17 11:06 89 08/29/17 07:30 97.8 85 19 110/59 (76) 94 08/29/17 04:00 89 08/29/17 04:00 98.1 91 16 112/54 (73) 94 08/29/17 00:00 98.5 95 16 128/56 (80) 96 08/29/17 00:00 79 08/28/17 20:00 98.8 92 16 130/57 (81) 94 08/28/17 20:00 93 08/28/17 16:47 80 08/28/17 15:47 98.8 88 20 116/61 (79) 97 08/28/17 12:05 98.4 81 16 128/65 (86) 92 08/28/17 11:50 98.9 80 16 125/69 (87) 92 08/28/17 11:13 96 I/O 08/28/17 08/28/17 08/28/17 08/29/17 08/29/17 08/29/17 07:00 15:00 23:00 07:00 15:00 23:00 Intake Total 720 ml 120 ml Balance 720 ml 120 ml Intake Oral 720 ml 120 ml # Voids 2 # Bowel Movements 1 Result Diagram: 08/29/17 0729 08/29/17 07 Objective Remarks GENERAL: Patient is lying in bed in no apparent distress. Normal speech with no confusion. SKIN: No jaundice appreciated. No ecchymoses. Skin warm and dry. HEAD: Atraumatic. Normocephalic. No temporal or scalp tenderness. EYES: PEERLA. Extraocular motions intact. No scleral icterus. No injection or drainage. ENT: Nose without bleeding, purulent drainage or septal hematoma. Throat without erythema, tonsillar hypertrophy or exudate. Uvula midline. Airway patent. NECK: Trachea midline. No JVD or lymphadenopathy. Supple, nontender, no meningeal signs. CARDIOVASCULAR: Aortic area 3/6 murmur noted, nonradiating. Normal rate. 2+ pulses bilaterally in UEs and LEs. RESPIRATORY: Breath sounds equal bilaterally. Wheezing on inspiration and expiration. GASTROINTESTINAL: Abdomen distended but not tense, bloating decreased from yesterday. Tender to palpation over epigastric area. Unable to palpate liver and spleen. No palpated masses. No guarding. No peritoneal signs. No rebound tenderness. MUSCULOSKELETAL: Extremities without clubbing, cyanosis, or edema. No joint tenderness, effusion, or edema noted. No calf tenderness. NEUROLOGICAL: Awake and alert. No tremors appreciated Cranial nerves II through XII grossly intact. Strength and sensation grossly intact. Normal speech. PYSCH: does not appear to respond to internal stimuli Procedures EGD 08/24/2017: Esophagitis, reflux-related gastritis with probably some portal gastropathy, nodular duodenal bulb of unclear significance Colonoscopy 08/24/2017: normal A/P Assessment and Plan Patient is 51 year old male with cirrhosis and alcoholism who presents for acute blood loss anemia secondary to GIB. Gastroenterology consulted, status post EGD colonoscopy on 08/24, s/p paracentesis 08/28. Discharge Planning Discharge pending clinical improvement and evaluation of distention Problem List: (1) Cirrhosis of liver ICD Codes: K74.60 - Unspecified cirrhosis of liver Plan: * RUQ ultrasound on admission showed enlarged heterogeneous nodular liver suggesting cirrhosis, ascites, gallbladder wall thickening without stones * Ammonia on admission elevated at 109-->159, started lactulose 30mg QID on 08/25 , ammonia improved * Will give Lasix PRN for fluid overload * Gastroenterology following; Status post paracentesis on 08/28, 4400 mL removed. Cytology and cultures pending. EGD biopsy still pending (2) Alcohol withdrawal ICD Codes: F10.239 - Alcohol dependence with withdrawal, unspecified Status: Resolved Plan: * Heavy use, Etoh 19 on admission * [facility] protocol, not requiring medications at this time * IV Rally Pack 08/23 --> PO Multivitamins on 08/25 * Counseling on alcohol cessation provided (3) Severe anemia ICD Codes: D64.9 - Anemia, unspecified Status: Resolved Plan: Resolved Patient presented 08/23 with severe anemia associated with acute GI losses. Hgb on admission 6.3. He is s/p 2 unit PRBCs given in ED - Hbg improved to 8.4 and has been stable. * Gastroenterology consult - EGD s/f gastric varices, likely portal gastropathy * History of varices -previously on octreotide and IV PPI, transition to by mouth PPI * IVF have been discontinued due to cirrhosis (4) GI bleed ICD Codes: K92.2 - Gastrointestinal hemorrhage, unspecified Status: Acute Plan: Acute blood loss anemia secondary to GIB Plan as above (5) Fluids, Electrolytes, Nutrition, and Prophylaxis Status: Acute Plan: Fluids: No IVF at this time Electrolytes: monitor and replete as needed Nutrition: Heart healthy diet PPX: Hold dvt ppx given GIB, give SCDs, PPI IV drip Lines: 2 large bore IVs Disposition: expect 2-3 day hospitalization for anemia mgmt, GIB evaluation, alcohol withdrawal. CM consulted Problem Qualifiers (1) Cirrhosis of liver: Qualified Codes: K70.31 - Alcoholic cirrhosis of liver with ascites (2) Alcohol withdrawal: Qualified Codes: F10.230 - Alcohol dependence with withdrawal, uncomplicated (3) GI bleed: Qualified Codes: K92.1 - Bonita Morin MD R2 Aug 29, 2017 11:15
[2017-08-29 12:18] LABS: AMYLASE BODY FLUID 14 U/L; AMYLASE BODY FLUID TYPE PERITONEAL
[2017-08-30] VITALS (9 sets, daily range): BP systolic 114–126; BP diastolic 55–66; PULSE 94–103; RESP 16–20; TEMP 98.3–99; O2SAT 94–98
[2017-08-30] MEDS: ZOLPIDEM TARTRATE 5 MG TAB PO PRN ×2 (02:51→21:47)
[2017-08-30 07:27] LABS: AUTOMATED NEUTROPHIL # 1.9 TH/MM3 (1.8-7.7); BASOPHIL # 0.1 TH/MM3 (0-0.2); BASOPHIL % 1.4 % (0.0-2.0); EOSINOPHIL # 0.2 TH/MM3 (0-0.4); EOSINOPHIL % 4.7 % (0.0-4.0); HEMATOCRIT 26.3 % (39.0-51.0); HEMOGLOBIN 8.7 GM/DL (13.0-17.0); LYMPH % 27.5 % (9.0-44.0); LYMPHOCYTE # 1.1 TH/MM3 (1.0-4.8); MEAN CELL VOLUME 88.6 FL (80.0-100.0); MEAN CORPUSCULAR HEMOGLOBIN 29.4 PG (27.0-34.0); MEAN CORPUSCULAR HGB CONC 33.1 % (32.0-36.0); MEAN PLATELET VOLUME 7.9 FL (7.0-11.0); MONO % 17.9 % (0.0-8.0); MONOCYTE # 0.7 TH/MM3 (0-0.9); NEUT % 48.5 % (16.0-70.0); PLATELET COUNT 91 TH/MM3 (150-450); RED BLOOD COUNT 2.96 MIL/MM3 (4.50-5.90); WHITE BLOOD COUNT 3.9 TH/MM3 (4.0-11.0)
[2017-08-30 07:55] LABS: ALBUMIN 1.9 GM/DL (3.4-5.0); ALT (GPT) 17 U/L (12-78); AST (GOT) 33 U/L (15-37); BICARBONATE 27.5 MEQ/L (21.0-32.0); BLOOD UREA NITROGEN 9 MG/DL (7-18); CALCIUM 7.5 MG/DL (8.5-10.1); CHLORIDE 107 MEQ/L (98-107); CREATININE 0.51 MG/DL (0.60-1.30); GLOMERULAR FILTRATION RATE 171 ML/MIN (>89); GLUCOSE,RANDOM 118 MG/DL (74-106); SODIUM (NA) 141 MEQ/L (136-145)
[2017-08-30 07:58] LABS: ALKALINE PHOSPHATASE 163 U/L (45-117); TOTAL BILIRUBIN ADULT 1.8 MG/DL (0.2-1.0); TOTAL PROTEIN 5.8 GM/DL (6.4-8.2)
[2017-08-30] MEDS: PANTOPRAZOLE SOD 40 MG DELAYED RELEASE TAB PO SCH (08:29)
[2017-08-30] MEDS: THIAMINE HCL 100 MG TAB PO SCH (08:29)
[2017-08-30] MEDS: MULTIVITAMIN TAB PO SCH (08:29)
[2017-08-30] MEDS: FOLIC ACID 1 MG TAB PO SCH (08:29)
[2017-08-30] MEDS: SODIUM CHLORIDE 0.9% FLUSH 10 ML FLUSH IV FLUSH SCH ×2 (08:31→21:50)
[2017-08-30] MEDS: LACTULOSE SYRUP 20 GM/30 ML CUP PO SCH ×4 (08:31→21:44)
--- NOTE | 2017-08-30 09:32 | HHI.FPPN ---
Subjective Remarks Patient seen and examined bedside this morning. Patient states pain is unchanged and he continues to feel mild to moderate bloating. He is inquiring as to whether he is having an additional paracentesis. He denies any chest pain or shortness of breath or dizziness. He is slightly groggy from his sleep medication. Objective Vitals Vital Signs Date Time Temp Pulse Resp B/P (MAP) Pulse Ox O2 Delivery O2 Flow Rate FiO2 08/30/17 07:43 98.3 100 20 121/58 (79) 95 08/30/17 04:00 102 08/30/17 04:00 99.0 100 16 122/62 (82) 98 08/30/17 00:00 103 08/29/17 20:45 80 08/29/17 17:41 94 08/29/17 15:48 98.2 91 20 112/58 (76) 96 08/29/17 12:02 98.0 95 20 101/47 (65) 94 08/29/17 12:00 89 08/29/17 11:06 89 I/O 08/29/17 08/29/17 08/29/17 08/30/17 08/30/17 08/30/17 07:00 15:00 23:00 07:00 15:00 23:00 Intake Total 120 ml 240 ml Balance 120 ml 240 ml Intake Oral 120 ml 240 ml # Voids 2 2 1 Result Diagram: 08/30/1761308/30/17617 Objective Remarks GENERAL: Patient is lying in bed in no apparent distress. Normal speech with no confusion. SKIN: No jaundice appreciated. No ecchymoses. Skin warm and dry. HEAD: Atraumatic. Normocephalic. No temporal or scalp tenderness. EYES: PEERLA. Extraocular motions intact. No scleral icterus. No injection or drainage. ENT: Nose without bleeding, purulent drainage or septal hematoma. Throat without erythema, tonsillar hypertrophy or exudate. Uvula midline. Airway patent. NECK: Trachea midline. No JVD or lymphadenopathy. Supple, nontender, no meningeal signs. CARDIOVASCULAR: Aortic area 3/6 murmur noted, nonradiating. Normal rate. 2+ pulses bilaterally in UEs and LEs. RESPIRATORY: Breath sounds equal bilaterally. Wheezing on inspiration and expiration. GASTROINTESTINAL: Abdomen distended but not tense. Tender to palpation over epigastric area. Unable to palpate liver and spleen. No palpated masses. No guarding. No peritoneal signs. No rebound tenderness. MUSCULOSKELETAL: Extremities without clubbing, cyanosis, or edema. No joint tenderness, effusion, or edema noted. No calf tenderness. NEUROLOGICAL: Awake and alert. No tremors appreciated Cranial nerves II through XII grossly intact. Strength and sensation grossly intact. Normal speech. PYSCH: does not appear to respond to internal stimuli Procedures EGD 08/24/2017: Esophagitis, reflux-related gastritis with probably some portal gastropathy, nodular duodenal bulb of unclear significance Colonoscopy 08/24/2017: normal A/P Assessment and Plan Patient is 51 year old male with cirrhosis and alcoholism who presents for acute blood loss anemia secondary to GIB. Gastroenterology consulted, status post EGD colonoscopy on 08/24, s/p paracentesis 08/28.stain of peritoneal fluid negative 48 hours Discharge Planning Discharge pending clinical improvement and evaluation of distention Problem List: (1) Cirrhosis of liver ICD Codes: K74.60 - Unspecified cirrhosis of liver Plan: * RUQ ultrasound on admission showed enlarged heterogeneous nodular liver suggesting cirrhosis, ascites, gallbladder wall thickening without stones * Ammonia on admission elevated at 109-->159, started lactulose 30mg QID on 08/25 , ammonia improved * Will give Lasix PRN for fluid overload * Gastroenterology following; Status post paracentesis on 08/28, 4400 mL removed. Cytology and cultures 48 hours, negative for malignant cells. EGD biopsy still pending from 08/25 (2) Alcohol withdrawal ICD Codes: F10.239 - Alcohol dependence with withdrawal, unspecified Status: Resolved Plan: * Heavy use, Etoh 19 on admission * [facility] protocol, not requiring medications at this time * IV Rally Pack 08/23 --> PO Multivitamins on 08/25 * Counseling on alcohol cessation provided (3) Severe anemia ICD Codes: D64.9 - Anemia, unspecified Status: Resolved Plan: Resolved Patient presented 08/23 with severe anemia associated with acute GI losses. Hgb on admission 6.3. He is s/p 2 unit PRBCs given in ED - Hbg improved to 8.4 and has been stable. * Gastroenterology consult - EGD s/f gastric varices, likely portal gastropathy * History of varices -previously on octreotide and IV PPI, transition to by mouth PPI * IVF have been discontinued due to cirrhosis (4) GI bleed ICD Codes: K92.2 - Gastrointestinal hemorrhage, unspecified Status: Acute Plan: Acute blood loss anemia secondary to GIB Plan as above (5) Fluids, Electrolytes, Nutrition, and Prophylaxis Status: Acute Plan: Fluids: No IVF at this time Electrolytes: monitor and replete as needed Nutrition: Heart healthy diet PPX: Hold dvt ppx given GIB, give SCDs, PPI IV drip Lines: 2 large bore IVs Disposition: expect 2-3 day hospitalization for anemia mgmt, GIB evaluation, alcohol withdrawal. CM consulted Problem Qualifiers (1) Cirrhosis of liver: Qualified Codes: K70.31 - Alcoholic cirrhosis of liver with ascites (2) Alcohol withdrawal: Qualified Codes: F10.230 - Alcohol dependence with withdrawal, uncomplicated (3) GI bleed: Qualified Codes: K92.1 - Bonita Morin MD R2 Aug 30, 2017 09:32
[2017-08-30] MEDS: FUROSEMIDE 40 MG TAB PO SCH ×2 (14:01→17:13)
[2017-08-30] MEDS: SPIRONOLACTONE 50 MG TAB PO SCH ×2 (14:01→17:13)
[2017-08-31] VITALS (7 sets, daily range): BP systolic 112–129; BP diastolic 60–72; PULSE 90–102; RESP 17–20; TEMP 98–98.8; O2SAT 94–99
[2017-08-31 06:20] LABS: AUTOMATED NEUTROPHIL # 1.4 TH/MM3 (1.8-7.7); BASOPHIL # 0.1 TH/MM3 (0-0.2); BASOPHIL % 2.2 % (0.0-2.0); EOSINOPHIL # 0.2 TH/MM3 (0-0.4); HEMATOCRIT 26.8 % (39.0-51.0); HEMOGLOBIN 8.8 GM/DL (13.0-17.0); LYMPHOCYTE # 1.2 TH/MM3 (1.0-4.8); MEAN CELL VOLUME 88.8 FL (80.0-100.0); MEAN CORPUSCULAR HEMOGLOBIN 29.1 PG (27.0-34.0); MEAN CORPUSCULAR HGB CONC 32.7 % (32.0-36.0); MEAN PLATELET VOLUME 8.1 FL (7.0-11.0); MONO % 20.4 % (0.0-8.0); MONOCYTE # 0.7 TH/MM3 (0-0.9); NEUT % 39.4 % (16.0-70.0); PLATELET COUNT 97 TH/MM3 (150-450); RED BLOOD COUNT 3.02 MIL/MM3 (4.50-5.90); RED CELL DISTRIBUTION WIDTH 20.1 % (11.6-17.2); WHITE BLOOD COUNT 3.6 TH/MM3 (4.0-11.0)
[2017-08-31 07:04] LABS: BICARBONATE 26.4 MEQ/L (21.0-32.0); CALCIUM 7.4 MG/DL (8.5-10.1); CREATININE 0.6 MG/DL (0.60-1.30); TOTAL BILIRUBIN ADULT 1.7 MG/DL (0.2-1.0)
[2017-08-31 08:01] LABS: ACANTHOCYTES OCC (NORMAL); OVALOCYTES 1+ (NORMAL)
[2017-08-31] MEDS ORDERED: RESP: ALBUTEROL 2.5 MG/3 ML NEB (PRN) NEB (08:45)
[2017-08-31] MEDS: SPIRONOLACTONE 50 MG TAB PO SCH ×2 (08:56→17:14)
[2017-08-31] MEDS: PANTOPRAZOLE SOD 40 MG DELAYED RELEASE TAB PO SCH (08:57)
[2017-08-31] MEDS: THIAMINE HCL 100 MG TAB PO SCH (08:57)
[2017-08-31] MEDS: MULTIVITAMIN TAB PO SCH (08:57)
[2017-08-31] MEDS: FOLIC ACID 1 MG TAB PO SCH (08:57)
[2017-08-31] MEDS: FUROSEMIDE 40 MG TAB PO SCH ×2 (08:57→17:14)
[2017-08-31] MEDS: LACTULOSE SYRUP 20 GM/30 ML CUP PO SCH ×4 (08:58→21:10)
[2017-08-31] MEDS: SODIUM CHLORIDE 0.9% FLUSH 10 ML FLUSH IV FLUSH SCH ×2 (08:58→21:00)
[2017-08-31] MEDS: RESP: ALBUTEROL 2.5 MG/IPRATROPIUM 0.5 MG NEB (SCH) NEB ×3 (10:00→21:08)
--- NOTE | 2017-08-31 10:43 | RADRPT ---
EXAM DATE/TIME: 08/31/2017 09:50 [facility] COMPARISON: CHEST SINGLE AP, August 23, 2017, 12:50. INDICATIONS : Short of breath. MEDICAL HISTORY : Cirrhosis. Odynophagia. Seizures. Palpitations.Ascites.Substance use. Tobacco use. SURGICAL HISTORY : None. ENCOUNTER: Subsequent ACUITY: 3 days PAIN SCORE: 0/10 LOCATION: Bilateral chest FINDINGS: The heart is normal in size. The mediastinal contours are within normal limits. The atelectatic changes at the right lung base. There is a mild consolidation in the right lower lobe as well. This is slightly worse compared to prior dated 08/23/17. The visualized bony structures are grossly intact. There are degenerative changes within the right sh oulder. CONCLUSION: 1. Atelectasis/consolidation at the right lung base. This is mildly worsened when compared to prior. Bijan Roberts MD on August 31, 2017 at 10:38 Board Certified Radiologist. This report was verified electronically.
--- NOTE | 2017-08-31 10:48 | RADRPT ---
EXAM DATE/TIME: 08/31/2017 09:54 [place] COMPARISON: No previous studies available for comparison. INDICATIONS : Right ankle pain and burning, prior injury 30 years ago. MEDICAL HISTORY : right ankle fx SURGICAL HISTORY : None. ENCOUNTER: Subsequent ACUITY: >1 year PAIN SCORE: 10/10 LOCATION: Right ankle FINDINGS: Three view exam was performed of the right ankle. The bony structures are in normal alignment. No e vidence of fracture, dislocation, or soft tissue swelling. The ankle mortise is intact. No radiopaq ue foreign bodies are seen. Bony mineralization is normal. CONCLUSION: No evidence of recent bony injury. Cristopher Echavarria MD on August 31, 2017 at 10:46 Board Certified Radiologist. This report was verified electronically.
--- NOTE | 2017-08-31 15:27 | HHI.FPPN ---
Subjective Remarks Patient seen and examined bedside this morning. Patient continues to complain of burning over his paracentesis site and generalized abdominal pain. He states the pain is no worse than yesterday. He has noticed that he is paying a lot more. He denies any chest pain or dizziness. He continues to feel short of breath when he ambulates. He would like to work more with PT. (Bonita Lau MD R2) Objective Vitals Vital Signs Date Time Temp Pulse Resp B/P (MAP) Pulse Ox O2 Delivery O2 Flow Rate FiO2 08/31/17 12:46 98.4 90 20 129/72 (91) 98 08/31/17 08:37 98.6 96 20 112/68 (83) 94 08/31/17 05:30 98.6 99 18 127/65 (85) 95 08/31/17 00:30 98.3 90 18 115/60 (78) 99 08/30/17 21:00 98.7 101 18 119/65 (83) 96 08/30/17 20:31 101 08/30/17 16:09 98.4 102 20 126/66 (86) 95 I/O 08/30/17 08/30/17 08/30/17 08/31/17 08/31/17 08/31/17 07:00 15:00 23:00 07:00 15:00 23:00 # Voids 1 1 1 1 (Bonita Lau MD R2) Result Diagram: 08/31/17 0515 08/31/17 0515 Objective Remarks GENERAL: Patient is lying in bed in no apparent distress. Normal speech with no confusion. SKIN: No jaundice appreciated. No ecchymoses. Skin warm and dry. HEAD: Atraumatic. Normocephalic. No temporal or scalp tenderness. EYES: PEERLA. Extraocular motions intact. No scleral icterus. No injection or drainage. ENT: Nose without bleeding, purulent drainage or septal hematoma. Throat without erythema, tonsillar hypertrophy or exudate. Uvula midline. Airway patent. NECK: Trachea midline. No JVD or lymphadenopathy. Supple, nontender, no meningeal signs. CARDIOVASCULAR: Aortic area 3/6 murmur noted, nonradiating. Normal rate. 2+ pulses bilaterally in UEs and LEs. RESPIRATORY: Breath sounds equal bilaterally. Wheezing on inspiration and expiration. GASTROINTESTINAL: Abdomen distended but not tense. Tender to palpation over epigastric area. Unable to palpate liver and spleen. No palpated masses. No guarding. No peritoneal signs. No rebound tenderness. Bandage over her paracentesis site removed; small superficial abrasion and irritation seen. MUSCULOSKELETAL: Extremities without clubbing, cyanosis, or edema. No joint tenderness, effusion, or edema noted. No calf tenderness. NEUROLOGICAL: Awake and alert. No tremors appreciated Cranial nerves II through XII grossly intact. Strength and sensation grossly intact. Normal speech. PYSCH: does not appear to respond to internal stimuli Procedures EGD 08/24/2017: Esophagitis, reflux-related gastritis with probably some portal gastropathy, nodular duodenal bulb of unclear significance Colonoscopy 08/24/2017: normal (Bonita Lau MD R2) A/P Assessment and Plan Patient is 51 year old male with cirrhosis and alcoholism who presents for acute blood loss anemia secondary to GIB. Gastroenterology consulted, status post EGD colonoscopy on 08/24, s/p paracentesis 08/28.stain of peritoneal fluid negative. Fluid continues to reaccumulate and we are attempting to diurese. Discharge Planning Discharge pending clinical improvement and evaluation of distention (Bonita Lau MD R2) Attending Attestation Patient seen and examined, discussed with resident team. I agree with assessment and management as documented and discussed with me. Pt reports on his right side, where his paracentesis was, described as a burning sensation. He is urinating frequenlty due to his diuretics. (Awilda Tapia MD) Problem List: (1) Ulcerative esophagitis ICD Codes: K22.10 - Ulcer of esophagus without bleeding Status: Acute Plan: Patient denies any epigastric tenderness, eating and drinking without difficulty Continue 40 mg pantoprazole daily by mouth for now EGD biopsy 08/25: Chronic gastritis, severe and acute ulcerative esophagitis (2) Cirrhosis of liver ICD Codes: K74.60 - Unspecified cirrhosis of liver Plan: * RUQ ultrasound on admission showed enlarged heterogeneous nodular liver suggesting cirrhosis, ascites, gallbladder wall thickening without stones * Ammonia on admission elevated at 109-->159, started lactulose 30mg QID on 08/25 , ammonia improved * Will give Lasix 40 mg twice a day for fluid overload, 50 mg Aldactone twice a day * Gastroenterology has signed off; Status post paracentesis on 08/28, 4400 mL removed. Cytology and cultures 48 hours, negative for malignant cells. EGD biopsy 08/25: Chronic gastritis, severe and acute ulcerative esophagitis (3) Ascites ICD Codes: R18.8 - Other ascites Status: Chronic Plan: See plan above Nursing order for 1500 mL fluid restriction Nursing order for strict I's and O's Follow up echocardiogram to evaluate for possible TIPS contraindications (4) Alcohol withdrawal ICD Codes: F10.239 - Alcohol dependence with withdrawal, unspecified Status: Resolved Plan: * Heavy use, Etoh 19 on admission * CIWA protocol, not requiring medications at this time * IV Rally Pack 08/23 --> PO Multivitamins on 08/25 * Counseling on alcohol cessation provided (5) Severe anemia ICD Codes: D64.9 - Anemia, unspecified Status: Resolved Plan: Resolved Patient presented 08/23 with severe anemia associated with acute GI losses. Hgb on admission 6.3. He is s/p 2 unit PRBCs given in ED - Hbg improved to 8.4 and has been stable. * Gastroenterology consult - EGD s/f gastric varices, likely portal gastropathy * History of varices -previously on octreotide and IV PPI, transition to by mouth PPI * IVF have been discontinued due to cirrhosis (6) GI bleed ICD Codes: K92.2 - Gastrointestinal hemorrhage, unspecified Status: Acute Plan: Acute blood loss anemia secondary to GIB Plan as above (7) Fluids, Electrolytes, Nutrition, and Prophylaxis Status: Acute Plan: Fluids: No IVF at this time Electrolytes: monitor and replete as needed Nutrition: Heart healthy diet PPX: Hold dvt ppx given GIB, give SCDs, PPI 40mg PO daily Lines: 2 large bore IVs Disposition: expect 2-3 day for diuresis, with long-term plan of either TIPSS procedure or repeat paracenteses (Bonita Lau MD R2) Problem Qualifiers (1) Cirrhosis of liver: Qualified Codes: K70.31 - Alcoholic cirrhosis of liver with ascites (2) Alcohol withdrawal: Qualified Codes: F10.230 - Alcohol dependence with withdrawal, uncomplicated (3) GI bleed: Qualified Codes: K92.1 - Melena Bonita Lau MD R2 Aug 31, 2017 15:27 Awilda Tapia MD Sep 01, 2017 20:35
[2017-08-31] MEDS: ZOLPIDEM TARTRATE 5 MG TAB PO PRN (21:48)
[2017-09-01] VITALS (8 sets, daily range): BP systolic 109–126; BP diastolic 55–63; PULSE 95–107; RESP 17–19; TEMP 97.8–98.9; O2SAT 94–96
[2017-09-01] MEDS: RESP: ALBUTEROL 2.5 MG/IPRATROPIUM 0.5 MG NEB (SCH) NEB ×4 (04:34→21:44)
[2017-09-01 08:44] LABS: HEMATOCRIT 26.8 % (39.0-51.0); HEMOGLOBIN 8.8 GM/DL (13.0-17.0); MEAN CELL VOLUME 87.3 FL (80.0-100.0); MEAN CORPUSCULAR HEMOGLOBIN 28.7 PG (27.0-34.0); MEAN CORPUSCULAR HGB CONC 32.9 % (32.0-36.0); MEAN PLATELET VOLUME 8.3 FL (7.0-11.0); PLATELET COUNT 107 TH/MM3 (150-450); RED BLOOD COUNT 3.07 MIL/MM3 (4.50-5.90); RED CELL DISTRIBUTION WIDTH 20.6 % (11.6-17.2); WHITE BLOOD COUNT 3.4 TH/MM3 (4.0-11.0)
[2017-09-01] MEDS: SODIUM CHLORIDE 0.9% FLUSH 10 ML FLUSH IV FLUSH SCH ×2 (09:00→21:00)
[2017-09-01 09:28] LABS: ALBUMIN 2.2 GM/DL (3.4-5.0); CALCIUM 7.4 MG/DL (8.5-10.1); CREATININE 0.65 MG/DL (0.60-1.30)
[2017-09-01] MEDS: THIAMINE HCL 100 MG TAB PO SCH (09:35)
[2017-09-01] MEDS: FUROSEMIDE 40 MG TAB PO SCH ×2 (09:35→17:25)
[2017-09-01] MEDS: MULTIVITAMIN TAB PO SCH (09:35)
[2017-09-01] MEDS: FOLIC ACID 1 MG TAB PO SCH (09:35)
[2017-09-01 09:36] LABS: CALCIUM-PROTEIN CORRECTED 7.8 MG/DL (8.5-10.1); TOTAL BILIRUBIN ADULT 1.6 MG/DL (0.2-1.0); TOTAL PROTEIN 6.3 GM/DL (6.4-8.2)
[2017-09-01] MEDS: LACTULOSE SYRUP 20 GM/30 ML CUP PO SCH ×4 (09:36→22:00)
[2017-09-01] MEDS: PANTOPRAZOLE SOD 40 MG DELAYED RELEASE TAB PO SCH (09:36)
--- NOTE | 2017-09-01 13:37 | ECHRPT ---
Indication: Heart Failure CONCLUSIONS The left ventricular systolic function is normal with an estimated ejection fraction in the range of 55-60%. Wall thickness is normal. Normal left ventricular size. Atrial septal aneurysm is present (benign finding). Mild thickening of the mitral valve leaflets. [id number] mitral valve regurgitation. There is trace tricuspid valve regurgitation. Trivial pulmonary valve regurgitation. BP: / HR: 107 Rhythm: Sinus MEASUREMENTS (Male / Female) Normal Values Technical Quality:Fair 2D ECHO LV Diastolic Diameter PLAX 4.9 cm 4.2 - 5.9 / 3.9 - 5.3 cm LV Systolic Diameter PLAX 3.3 cm IVS Diastolic Thickness 0.8 cm 0.6 - 1.0 / 0.6 - 0.9 cm LVPW Diastolic Thickness 0.7 cm 0.6 - 1.0 / 0.6 - 0.9 cm LV Relative Wall Thickness 0.3 RV Internal Dim ED PLAX 2.8 cm LVOT Diameter 2.0 cm LA Systolic Diameter LX 3.9 cm 3.0 - 4.0 / 2.7 - 3.8 cm M-MODE Aortic Root Diameter MM 3.2 cm LA Systolic Diameter MM 4.0 cm LA Ao Ratio MM 1.3 AV Cusp Separation MM 1.9 cm DOPPLER AV Peak Velocity 198.0 cm/s AV Peak Gradient 15.7 mmHg LVOT Peak Velocity 124.0 cm/s LVOT Peak Gradient 6.2 mmHg AV Area Cont Eq pk 2.0 cm MV Area PHT 5.9 cm Mitral E Point Velocity 65.9 cm/s Mitral A Point Velocity 97.9 cm/s Mitral E to A Ratio 0.7 LV E' Lateral Velocity 11.8 cm/s Mitral E to LV E' Lateral Ratio 5.6 LV E' Septal Velocity 8.9 cm/s Mitral E to LV E' Septal Ratio 7.4 FINDINGS LEFT VENTRICLE The left ventricular systolic function is normal with an estimated ejection fraction in the range of 55-60%. Wall thickness is normal. Normal left ventricular size. RIGHT VENTRICLE Normal right ventricular size and systolic function. LEFT ATRIUM The left atrial size is normal. RIGHT ATRIUM The right atrial size is normal. ATRIAL SEPTUM Atrial septal aneurysm is present (benign finding). AORTA The aortic root and proximal ascending aorta are normal in size on limited imaging. MITRAL VALVE Mild thickening of the mitral valve leaflets. [id number]-[id number] mitral valve regurgitation. AORTIC VALVE Trileaflet aortic valve. No aortic valve stenosis or regurgitation. TRICUSPID VALVE Structurally normal tricuspid valve. There is trace tricuspid valve regurgitation. PULMONARY VALVE Trivial pulmonary valve regurgitation. VESSELS The inferior vena cava is normal in size. PERICARDIUM No pericardial effusion. A large left sided pleural effusion is noted. Jose Rothman MD, FACC (Electronically Signed) Final Date:01 September 2017 13:36
[2017-09-01] MEDS: SPIRONOLACTONE 50 MG TAB PO SCH (17:26)
--- NOTE | 2017-09-01 19:49 | HHI.FPPN ---
Subjective Remarks Patient seen and evaluated this morning. He continues to complain of burning over the paracentesis site as well as generalized abdominal pain. He feels that his abdominal distention has improved since starting diuresis. His urine output continues to be high. He reports improved shortness of breath. He denies chest pain, nausea, vomiting, diarrhea, and constipation. All questions were answered. (Estefani Capps MD R1) Objective Vitals Vital Signs Date Time Temp Pulse Resp B/P (MAP) Pulse Ox O2 Delivery O2 Flow Rate FiO2 09/01/17 16:00 106 09/01/17 12:00 104 09/01/17 12:00 98.6 103 19 111/62 (78) 96 09/01/17 08:00 98.5 104 18 109/59 (76) 94 09/01/17 08:00 107 09/01/17 07:50 95 09/01/17 05:13 98.4 99 17 115/59 (77) 95 09/01/17 00:18 98.9 103 17 126/59 (81) 95 08/31/17 21:03 98.8 102 17 125/64 (84) 95 I/O 08/31/17 08/31/17 08/31/17 09/01/17 09/01/17 09/01/17 07:00 15:00 23:00 07:00 15:00 23:00 Intake Total 660 ml 240 ml Output Total 1000 ml Balance 660 ml -760 ml Intake Oral 660 ml 240 ml Output Urine Total 1000 ml # Voids 1 1 (Estefani Capps MD R1) Result Diagram: 09/01/17 0756 09/01/17 0706 Other Results ECHO FINDINGS: LEFT VENTRICLE The left ventricular systolic function is normal with an estimated ejection fraction in the range of 55-60%. Wall thickness is normal. Normal left ventricular size. RIGHT VENTRICLE Normal right ventricular size and systolic function. LEFT ATRIUM The left atrial size is normal. RIGHT ATRIUM The right atrial size is normal. ATRIAL SEPTUM Atrial septal aneurysm is present (benign finding). AORTA The aortic root and proximal ascending aorta are normal in size on limited imaging. MITRAL VALVE Mild thickening of the mitral valve leaflets. [id number]-[id number] mitral valve regurgitation. AORTIC VALVE Trileaflet aortic valve. No aortic valve stenosis or regurgitation. TRICUSPID VALVE Structurally normal tricuspid valve. There is trace tricuspid valve regurgitation. PULMONARY VALVE Trivial pulmonary valve regurgitation. VESSELS The inferior vena cava is normal in size. PERICARDIUM No pericardial effusion. A large left sided pleural effusion is noted. Imaging Last 72 hours Impressions Ankle X-Ray 08/31/17 0831 Signed Impressions: Service Date/Time: August 09:54 - CONCLUSION: No evidence of recent bony injury. Cristopher Echavarria MD Chest X-Ray 08/31/17 0000 Signed Impressions: Service Date/Time: August 09:50 - CONCLUSION: 1. Atelectasis/consolidation at the right lung base. This is mildly worsened when compared to prior. Bijan Roberts MD Objective Remarks GENERAL: Patient is lying in bed in no apparent distress. Normal speech with no confusion. SKIN: No jaundice appreciated. No ecchymoses. Skin warm and dry. HEAD: Atraumatic. Normocephalic. EYES: Extraocular motions intact. No scleral icterus. No injection or drainage. ENT: Nose without bleeding, purulent drainage or septal hematoma. Airway patent. NECK: Supple, nontender, no meningeal signs. CARDIOVASCULAR: Aortic area 3/6 murmur noted, nonradiating. Normal rate. RESPIRATORY: Breath sounds equal bilaterally. Wheezing on inspiration and expiration. GASTROINTESTINAL: Abdomen distended but not tense. Tender to palpation over epigastric area. Unable to palpate liver and spleen. No palpated masses. No guarding. No peritoneal signs. No rebound tenderness. Bandage over her paracentesis site removed; small superficial abrasion and irritation seen - stable from prior exam. MUSCULOSKELETAL: Extremities without clubbing, cyanosis. No calf tenderness. NEUROLOGICAL: Awake and alert. No tremors appreciated. Cranial nerves II through XII grossly intact. Strength and sensation grossly intact. Normal speech. Procedures EGD 08/24/2017: Esophagitis, reflux-related gastritis with probably some portal gastropathy, nodular duodenal bulb of unclear significance Colonoscopy 08/24/2017: normal Medications and IVs Current Medications Medications (Trade) Dose Ordered Sig/Robin Route Start Time Stop Time Status Last Admin (NS Flush) 2 ml UNSCH PRN IV FLUSH 08/23/17 11:15 (NS Flush) 2 ml BID IV FLUSH 08/23/17 21:00 08/31/17 21:00 (Zofran Inj) 4 mg Q6H PRN IV PUSH 08/23/17 11:15 08/26/17 16:53 (Narcan Inj) 0.4 mg UNSCH PRN IV PUSH 08/23/17 12:00 (Milk Of Magnesia Liq) 30 ml Q12H PRN PO 08/23/17 12:00 (Senokot) 17.2 mg Q12H PRN PO 08/23/17 12:00 (Dulcolax Supp) 10 mg DAILY PRN RECTAL 08/23/17 12:00 (Lactulose Liq) 30 ml DAILY PRN PO 08/23/17 12:00 (Romazicon Inj) 0.2 mg Q1M PRN IV PUSH 08/23/17 12:00 (Ativan) 1 mg Q4H PRN PO 08/23/17 12:00 (Ativan Inj) 1 mg Q4H PRN IV PUSH 08/23/17 12:00 (Ativan) 2 mg Q2H PRN PO 08/23/17 12:00 (Ativan Inj) 2 mg Q2H PRN IV PUSH 08/23/17 12:00 (Ativan Inj) 2 mg Q1H PRN IV PUSH 08/23/17 12:00 (Ativan Inj) 2 mg Q15M PRN IV PUSH 08/23/17 12:00 (Lactulose Liq) 30 ml QID PO 08/25/17 15:15 09/01/17 17:25 (Theragran) 1 tab DAILY PO 08/26/17 09:00 09/01/17 09:35 (Vitamin B1) 100 mg DAILY PO 08/26/17 09:00 09/01/17 09:35 (Folate) 1 mg DAILY PO 08/26/17 09:00 09/01/17 09:35 (Protonix) 40 mg DAILY PO 08/27/17 09:00 09/01/17 09:36 (Ambien) 5 mg HS PRN PO 08/29/17 11:30 08/31/17 21:48 (Lasix) 40 mg BID@,18 PO 08/30/17 13:45 09/01/17 17:25 (Aldactone) 50 mg BID@,18 PO 08/30/17 13:45 09/01/17 17:26 (Albuterol Neb) 2.5 mg Q2HR NEB PRN NEB 08/31/17 08:45 (Duoneb Neb) 1 ampule Q6HR NEB NEB 08/31/17 10:00 09/01/17 15:34 (Estefani Capps MD R1) Urinary Catheter: No (Estefani Capps MD R1) Vascular Central Line Catheter: No (Estefani Capps MD R1) A/P Assessment and Plan Patient is 51 year old male with cirrhosis and alcoholism who presents for acute blood loss anemia secondary to GIB. Gastroenterology consulted, status post EGD colonoscopy on 08/24, s/p paracentesis 08/28. Stain of peritoneal fluid negative. Fluid continues to reaccumulate and diuresis is attempted. Discharge Planning Discharge pending clinical improvement and evaluation of distention (Estefani Capps MD R1) Attending Attestation Patient seen, examined, and discussed with resident team. I agree with assessment and management as documented and discussed with me. Pt feels his ascites is slightly improved from yesterday. He is urinating frequently as a result of diuretics. He reports that he will contact his friend after work this evening regarding having a place to stay after discharge. Anticipate discharge in the next 2-3 days. (Awilda Tapia MD) Problem List: (1) Ulcerative esophagitis ICD Codes: K22.10 - Ulcer of esophagus without bleeding Status: Acute Plan: Patient continues with some epigastric tenderness but eating and drinking without difficulty. Continue 40 mg pantoprazole PO daily. Hospital Course: EGD biopsy 08/25: Chronic gastritis, severe and acute ulcerative esophagitis. (2) Cirrhosis of liver ICD Codes: K74.60 - Unspecified cirrhosis of liver Plan: Lasix 40 mg BID for fluid overload/ascites, 50 mg Aldactone twice a day. May consider TIPS procedure if diuresis is not successful. Nursing order for 1500 mL fluid restriction. Nursing order for strict I's and O's. Hospital Course: * RUQ ultrasound on admission showed enlarged heterogeneous nodular liver suggesting cirrhosis, ascites, gallbladder wall thickening without stones. * Ammonia on admission elevated at 109-->159, started lactulose 30mg QID on 08/25 , ammonia improved. * Gastroenterology has signed off; Status post paracentesis on 08/28, 4400 mL removed. Cytology and cultures 48 hours, negative for malignant cells. EGD biopsy 08/25: Chronic gastritis, severe and acute ulcerative esophagitis. (3) Ascites ICD Codes: R18.8 - Other ascites Status: Chronic Plan: * See Plan for Cirrhosis of liver. (4) Alcohol withdrawal ICD Codes: F10.239 - Alcohol dependence with withdrawal, unspecified Status: Resolved Plan: * Heavy use, EtOH 19 on admission * [facility] protocol, not requiring medications at this time. * IV Rally Pack 08/23 --> PO Multivitamins on 08/25. * Counseling on alcohol cessation provided. (5) Severe anemia ICD Codes: D64.9 - Anemia, unspecified Status: Resolved Plan: Resolved Hospital Course: Patient presented 08/23 with severe anemia associated with acute GI losses. Hgb on admission 6.3. He is s/p 2 unit PRBCs given in ED - Hbg improved to 8.4 and has been stable. * Gastroenterology consult - EGD s/f gastric varices, likely portal gastropathy. * History of varices -previously on octreotide and IV PPI, transition to by mouth PPI. (6) Fluids, Electrolytes, Nutrition, and Prophylaxis Status: Acute Plan: Fluids: Tolerates PO. Electrolytes: Monitor and replete as necessary. Nutrition: Heart healthy diet. PPX: SCDs, PPI 40mg PO daily. (Estefani Capps MD R1) Problem Qualifiers (1) Cirrhosis of liver: Qualified Codes: K70.31 - Alcoholic cirrhosis of liver with ascites (2) Alcohol withdrawal: Qualified Codes: F10.230 - Alcohol dependence with withdrawal, uncomplicated Estefani Capps MD R1 Sep 01, 2017 19:49 Awilda Tapia MD Sep 01, 2017 20:58
[2017-09-01] MEDS: ZOLPIDEM TARTRATE 5 MG TAB PO PRN (22:00)
[2017-09-02] VITALS (9 sets, daily range): BP systolic 108–123; BP diastolic 54–62; PULSE 65–101; RESP 16–18; TEMP 98.2–99.1; O2SAT 92–95
[2017-09-02] MEDS: RESP: ALBUTEROL 2.5 MG/IPRATROPIUM 0.5 MG NEB (SCH) NEB ×4 (02:40→21:46)
[2017-09-02] MEDS: FOLIC ACID 1 MG TAB PO SCH (08:19)
[2017-09-02] MEDS: PANTOPRAZOLE SOD 40 MG DELAYED RELEASE TAB PO SCH (08:19)
[2017-09-02] MEDS: MULTIVITAMIN TAB PO SCH (08:19)
[2017-09-02] MEDS: THIAMINE HCL 100 MG TAB PO SCH (08:19)
[2017-09-02] MEDS: LACTULOSE SYRUP 20 GM/30 ML CUP PO SCH ×4 (08:20→21:47)
[2017-09-02] MEDS: SPIRONOLACTONE 50 MG TAB PO SCH ×2 (08:20→17:47)
[2017-09-02] MEDS: FUROSEMIDE 40 MG TAB PO SCH ×2 (08:20→17:46)
[2017-09-02] MEDS: SODIUM CHLORIDE 0.9% FLUSH 10 ML FLUSH IV FLUSH SCH ×2 (08:21→21:00)
[2017-09-02 08:57] LABS: HEMATOCRIT 26.3 % (39.0-51.0); HEMOGLOBIN 8.6 GM/DL (13.0-17.0); MEAN CELL VOLUME 87.4 FL (80.0-100.0); MEAN CORPUSCULAR HEMOGLOBIN 28.5 PG (27.0-34.0); MEAN CORPUSCULAR HGB CONC 32.6 % (32.0-36.0); MEAN PLATELET VOLUME 8.1 FL (7.0-11.0); PLATELET COUNT 124 TH/MM3 (150-450); RED BLOOD COUNT 3.01 MIL/MM3 (4.50-5.90); RED CELL DISTRIBUTION WIDTH 20.2 % (11.6-17.2); WHITE BLOOD COUNT 3.4 TH/MM3 (4.0-11.0)
[2017-09-02 09:13] LABS: ALBUMIN 2.1 GM/DL (3.4-5.0); AST (GOT) 32 U/L (15-37); BICARBONATE 26.4 MEQ/L (21.0-32.0); BLOOD UREA NITROGEN 7 MG/DL (7-18); CALCIUM 7.5 MG/DL (8.5-10.1); CHLORIDE 103 MEQ/L (98-107); CREATININE 0.62 MG/DL (0.60-1.30); GLOMERULAR FILTRATION RATE 137 ML/MIN (>89); GLUCOSE,RANDOM 102 MG/DL (74-106); SODIUM (NA) 137 MEQ/L (136-145)
[2017-09-02 09:14] LABS: ALT (GPT) 20 U/L (12-78)
[2017-09-02 09:16] LABS: ALKALINE PHOSPHATASE 188 U/L (45-117); TOTAL BILIRUBIN ADULT 1.5 MG/DL (0.2-1.0); TOTAL PROTEIN 6.2 GM/DL (6.4-8.2)
--- NOTE | 2017-09-02 17:58 | HHI.FPPN ---
Subjective Remarks Patient seen and evaluated this morning. He reports less burning over the paracentesis site and overall improvement with regard to generalized abdominal pain. He feels that his abdominal distention continues to improve. His urine output continues to be high. He reports improved shortness of breath. He denies chest pain, nausea, vomiting, diarrhea, and constipation. All questions were answered. (Estefani Capps MD R1) Objective Vitals Vital Signs Date Time Temp Pulse Resp B/P (MAP) Pulse Ox O2 Delivery O2 Flow Rate FiO2 09/02/17 16:20 101 09/02/17 16:00 99.1 99 16 123/62 (82) 95 09/02/17 12:00 98.4 96 16 108/56 (73) 94 09/02/17 08:00 98.2 97 16 108/54 (72) 94 09/02/17 08:00 96 09/02/17 07:49 92 21 09/02/17 06:19 98.2 94 18 108/55 (72) 95 09/02/17 00:50 98.9 100 18 119/60 (79) 95 09/01/17 21:00 98.6 105 18 111/55 (73) 95 I/O 09/01/17 09/01/17 09/01/17 09/02/17 09/02/17 09/02/17 07:00 15:00 23:00 07:00 15:00 23:00 Intake Total 240 ml 200 ml Output Total 1000 ml 300 ml Balance -760 ml 200 ml -300 ml Intake Oral 240 ml 200 ml Output Urine Total 1000 ml 300 ml # Voids 2 2 (Estefani Capps MD R1) Result Diagram: 09/02/17 0746 09/02/17 0746 Imaging Last 72 hours Impressions Ankle X-Ray 08/31/17 0831 Signed Impressions: Service Date/Time: August 09:54 - CONCLUSION: No evidence of recent bony injury. Cristopher Echavarria MD Chest X-Ray 08/31/17 0000 Signed Impressions: Service Date/Time: August 09:50 - CONCLUSION: 1. Atelectasis/consolidation at the right lung base. This is mildly worsened when compared to prior. Bijan Roberts MD Objective Remarks GENERAL: Patient is lying in bed in no apparent distress. Normal speech with no confusion. SKIN: No jaundice appreciated. No ecchymoses. Skin warm and dry. HEAD: Atraumatic. Normocephalic. EYES: Extraocular motions intact. No scleral icterus. No injection or drainage. ENT: Nose without bleeding, purulent drainage or septal hematoma. Airway patent. NECK: Supple, nontender, no meningeal signs. CARDIOVASCULAR: Aortic area 3/6 murmur noted, nonradiating. Normal rate. RESPIRATORY: Breath sounds equal bilaterally. Wheezing on inspiration and expiration. GASTROINTESTINAL: Abdomen distended but not tense. Tender to palpation over epigastric area. Unable to palpate liver and spleen. No palpated masses. No guarding. No peritoneal signs. No rebound tenderness. Bandage over her paracentesis site removed; small superficial abrasion and irritation seen - stable from prior exam. MUSCULOSKELETAL: Extremities without clubbing, cyanosis. No calf tenderness. NEUROLOGICAL: Awake and alert. No tremors appreciated. Cranial nerves II through XII grossly intact. Strength and sensation grossly intact. Normal speech. Procedures EGD 08/24/2017: Esophagitis, reflux-related gastritis with probably some portal gastropathy, nodular duodenal bulb of unclear significance Colonoscopy 08/24/2017: normal Medications and IVs Current Medications Medications (Trade) Dose Ordered Sig/Robin Route Start Time Stop Time Status Last Admin (NS Flush) 2 ml UNSCH PRN IV FLUSH 08/23/17 11:15 (NS Flush) 2 ml BID IV FLUSH 08/23/17 21:00 08/31/17 21:00 (Zofran Inj) 4 mg Q6H PRN IV PUSH 08/23/17 11:15 08/26/17 16:53 (Narcan Inj) 0.4 mg UNSCH PRN IV PUSH 08/23/17 12:00 (Milk Of Magnesia Liq) 30 ml Q12H PRN PO 08/23/17 12:00 (Senokot) 17.2 mg Q12H PRN PO 08/23/17 12:00 (Dulcolax Supp) 10 mg DAILY PRN RECTAL 08/23/17 12:00 (Lactulose Liq) 30 ml DAILY PRN PO 08/23/17 12:00 (Romazicon Inj) 0.2 mg Q1M PRN IV PUSH 08/23/17 12:00 (Ativan) 1 mg Q4H PRN PO 08/23/17 12:00 (Ativan Inj) 1 mg Q4H PRN IV PUSH 08/23/17 12:00 (Ativan) 2 mg Q2H PRN PO 08/23/17 12:00 (Ativan Inj) 2 mg Q2H PRN IV PUSH 08/23/17 12:00 (Ativan Inj) 2 mg Q1H PRN IV PUSH 08/23/17 12:00 (Ativan Inj) 2 mg Q15M PRN IV PUSH 08/23/17 12:00 (Lactulose Liq) 30 ml QID PO 08/25/17 15:15 09/02/17 17:46 (Theragran) 1 tab DAILY PO 08/26/17 09:00 09/02/17 08:19 (Vitamin B1) 100 mg DAILY PO 08/26/17 09:00 09/02/17 08:19 (Folate) 1 mg DAILY PO 08/26/17 09:00 09/02/17 08:19 (Protonix) 40 mg DAILY PO 08/27/17 09:00 09/02/17 08:19 (Ambien) 5 mg HS PRN PO 08/29/17 11:30 09/01/17 22:00 (Lasix) 40 mg BID@,18 PO 08/30/17 13:45 09/02/17 17:46 (Aldactone) 50 mg BID@,18 PO 08/30/17 13:45 09/02/17 17:47 (Albuterol Neb) 2.5 mg Q2HR NEB PRN NEB 08/31/17 08:45 (Duoneb Neb) 1 ampule Q6HR NEB NEB 08/31/17 10:00 09/02/17 07:48 (Estefani Capps MD R1) Urinary Catheter: No (Estefani Capps MD R1) Vascular Central Line Catheter: No (Estefani Capps MD R1) A/P Assessment and Plan Patient is 51 year old male with cirrhosis and alcoholism who presents for acute blood loss anemia secondary to GIB. Gastroenterology consulted, status post EGD colonoscopy on 08/24, s/p paracentesis 08/28. Stain of peritoneal fluid negative. Fluid continues to reaccumulate and diuresis is attempted. Discharge Planning Discharge likely Monday after paracentesis by IR. (Estefani Capps MD R1) Attending Attestation Patient seen and examined, discussed with Dr Capps. I agree with assessment and management as documented and discussed with me. Pt feels abdominal swelling is slowly improving. He complains of pain at needle site still. He reports BM yesterday, but had not informed nurse (thus not recorded). Anticipate discharge in next 1-2 days. (Awilda Tapia MD) Problem List: (1) Ulcerative esophagitis ICD Codes: K22.10 - Ulcer of esophagus without bleeding Status: Acute Plan: Patient continues with some epigastric tenderness but eating and drinking without difficulty. Continue 40 mg pantoprazole PO daily. Hospital Course: * EGD biopsy 08/25: Chronic gastritis, severe and acute ulcerative esophagitis. (2) Cirrhosis of liver ICD Codes: K74.60 - Unspecified cirrhosis of liver Plan: Lasix 40 mg BID for fluid overload/ascites, 50 mg Aldactone twice a day. May consider TIPS procedure if diuresis is not successful. Nursing order for 1500 mL fluid restriction. Nursing order for strict I's and O's. Hospital Course: * RUQ ultrasound on admission showed enlarged heterogeneous nodular liver suggesting cirrhosis, ascites, gallbladder wall thickening without stones. * Ammonia on admission elevated at 109-->159, started lactulose 30mg QID on 08/25 , ammonia improved. * Gastroenterology has signed off; Status post paracentesis on 08/28, 4400 mL removed. Cytology and cultures 48 hours, negative for malignant cells. EGD biopsy 08/25: Chronic gastritis, severe and acute ulcerative esophagitis. (3) Ascites ICD Codes: R18.8 - Other ascites Status: Chronic Plan: * See Plan for Cirrhosis of liver. (4) Alcohol withdrawal ICD Codes: F10.239 - Alcohol dependence with withdrawal, unspecified Status: Resolved Plan: * Heavy use, EtOH 19 on admission * [facility] protocol, not requiring medications at this time. * IV Rally Pack 08/23 --> PO Multivitamins on 08/25. * Counseling on alcohol cessation provided. (5) Severe anemia ICD Codes: D64.9 - Anemia, unspecified Status: Resolved Plan: Resolved Hospital Course: Patient presented 08/23 with severe anemia associated with acute GI losses. Hgb on admission 6.3. He is s/p 2 unit PRBCs given in ED - Hbg improved to 8.4 and has been stable. * Gastroenterology consult - EGD s/f gastric varices, likely portal gastropathy. * History of varices -previously on octreotide and IV PPI, transition to by mouth PPI. (6) Fluids, Electrolytes, Nutrition, and Prophylaxis Status: Acute Plan: Fluids: Tolerates PO. Electrolytes: Monitor and replete as necessary. Nutrition: Heart healthy diet. PPX: SCDs, PPI 40mg PO daily. (Estefani Capps MD R1) Problem Qualifiers (1) Cirrhosis of liver: Qualified Codes: K70.31 - Alcoholic cirrhosis of liver with ascites (2) Alcohol withdrawal: Qualified Codes: F10.230 - Alcohol dependence with withdrawal, uncomplicated Estefani Capps MD R1 Sep 02, 2017 17:58 Awilda Tapia MD Sep 03, 2017 08:12
[2017-09-02] MEDS ORDERED: WALKER WHEELS/F1 MIS (18:10)
[2017-09-02] MEDS: ZOLPIDEM TARTRATE 5 MG TAB PO PRN (21:45)
[2017-09-03] VITALS (7 sets, daily range): BP systolic 103–120; BP diastolic 55–70; PULSE 64–100; RESP 16–20; TEMP 97.9–98.6; O2SAT 93–98
[2017-09-03] MEDS: RESP: ALBUTEROL 2.5 MG/IPRATROPIUM 0.5 MG NEB (SCH) NEB (03:32)
[2017-09-03 07:40] LABS: HEMATOCRIT 26.1 % (39.0-51.0); HEMOGLOBIN 8.6 GM/DL (13.0-17.0); MEAN CELL VOLUME 86.6 FL (80.0-100.0); MEAN CORPUSCULAR HEMOGLOBIN 28.6 PG (27.0-34.0); MEAN PLATELET VOLUME 8.2 FL (7.0-11.0); PLATELET COUNT 150 TH/MM3 (150-450); RED BLOOD COUNT 3.02 MIL/MM3 (4.50-5.90); RED CELL DISTRIBUTION WIDTH 20.8 % (11.6-17.2); WHITE BLOOD COUNT 3.9 TH/MM3 (4.0-11.0)
[2017-09-03 07:59] LABS: ALBUMIN 2.1 GM/DL (3.4-5.0); ALT (GPT) 20 U/L (12-78); AST (GOT) 30 U/L (15-37); BLOOD UREA NITROGEN 7 MG/DL (7-18); CALCIUM 7.5 MG/DL (8.5-10.1); CHLORIDE 102 MEQ/L (98-107); CREATININE 0.59 MG/DL (0.60-1.30); GLOMERULAR FILTRATION RATE 145 ML/MIN (>89); GLUCOSE,RANDOM 129 MG/DL (74-106); SODIUM (NA) 137 MEQ/L (136-145)
[2017-09-03 08:02] LABS: ALKALINE PHOSPHATASE 190 U/L (45-117); TOTAL BILIRUBIN ADULT 1.4 MG/DL (0.2-1.0); TOTAL PROTEIN 6.3 GM/DL (6.4-8.2)
[2017-09-03] MEDS: SODIUM CHLORIDE 0.9% FLUSH 10 ML FLUSH IV FLUSH SCH ×2 (09:00→21:00)
[2017-09-03] MEDS: SPIRONOLACTONE 50 MG TAB PO SCH ×2 (09:10→17:24)
[2017-09-03] MEDS: THIAMINE HCL 100 MG TAB PO SCH (09:10)
[2017-09-03] MEDS: PANTOPRAZOLE SOD 40 MG DELAYED RELEASE TAB PO SCH (09:10)
[2017-09-03] MEDS: FUROSEMIDE 40 MG TAB PO SCH ×2 (09:10→17:24)
[2017-09-03] MEDS: MULTIVITAMIN TAB PO SCH (09:10)
[2017-09-03] MEDS: FOLIC ACID 1 MG TAB PO SCH (09:10)
[2017-09-03] MEDS: LACTULOSE SYRUP 20 GM/30 ML CUP PO SCH ×4 (09:11→21:12)
[2017-09-03] MEDS ORDERED: RESP: ALBUTEROL 2.5 MG/IPRATROPIUM 0.5 MG NEB (PRN) NEB (10:00)
--- NOTE | 2017-09-03 13:16 | HHI.FPPN ---
Subjective Remarks Patient seen and evaluated this morning. He reports continued burning over the paracentesis site but overall improvement with regard to generalized abdominal pain. He feels that his abdominal distention continues to improve. His urine output continues to be high. He reports improved shortness of breath. He denies chest pain, nausea, vomiting, diarrhea, and constipation. All questions were answered. (Estefani Capps MD R1) Objective Vitals Vital Signs Date Time Temp Pulse Resp B/P (MAP) Pulse Ox O2 Delivery O2 Flow Rate FiO2 09/03/17 12:20 Nasal Cannula 09/03/17 12:00 98.3 100 16 106/56 (73) 94 09/03/17 08:00 98.1 95 16 106/66 (79) 94 09/03/17 05:40 98.1 64 19 120/65 (83) 96 09/03/17 00:00 97.9 65 20 118/66 (83) 98 09/02/17 23:00 65 09/02/17 21:48 94 21 09/02/17 16:20 101 09/02/17 16:00 99.1 99 16 123/62 (82) 95 I/O 09/02/17 09/02/17 09/02/17 09/03/17 09/03/17 09/03/17 07:00 15:00 23:00 07:00 15:00 23:00 Intake Total 200 ml 200 ml Output Total 1200 ml 1000 ml Balance 200 ml -1200 ml -800 ml Intake Oral 200 ml 200 ml Output Urine Total 1200 ml 1000 ml # Voids 2 # Bowel Movements 1 0 (Estefani Capps MD R1) Result Diagram: 09/03/17 0639 09/03/17 0619 Objective Remarks GENERAL: Patient is lying in bed in no apparent distress. Normal speech with no confusion. SKIN: No jaundice appreciated. No ecchymoses. Skin warm and dry. HEAD: Atraumatic. Normocephalic. EYES: Extraocular motions intact. No scleral icterus. No injection or drainage. ENT: Nose without bleeding, purulent drainage or septal hematoma. Airway patent. NECK: Supple, nontender, no meningeal signs. CARDIOVASCULAR: Aortic area 3/6 murmur noted, nonradiating. Normal rate. RESPIRATORY: Breath sounds equal bilaterally. Wheezing on inspiration and expiration - improved. GASTROINTESTINAL: Abdomen distended but soft. Minimally tender to palpation over epigastric area. No palpated masses. No guarding. No peritoneal signs. No rebound tenderness. Bandage over her paracentesis site removed; small superficial abrasion and irritation seen - stable from prior exam. MUSCULOSKELETAL: Extremities without clubbing, cyanosis. No calf tenderness. NEUROLOGICAL: Awake and alert. No tremors appreciated. Cranial nerves II through XII grossly intact. Strength and sensation grossly intact. Normal speech. Procedures EGD 08/24/2017: Esophagitis, reflux-related gastritis with probably some portal gastropathy, nodular duodenal bulb of unclear significance Colonoscopy 08/24/2017: normal Medications and IVs Current Medications Medications (Trade) Dose Ordered Sig/Robin Route Start Time Stop Time Status Last Admin (NS Flush) 2 ml UNSCH PRN IV FLUSH 08/23/17 11:15 (NS Flush) 2 ml BID IV FLUSH 08/23/17 21:00 08/31/17 21:00 (Zofran Inj) 4 mg Q6H PRN IV PUSH 08/23/17 11:15 08/26/17 16:53 (Narcan Inj) 0.4 mg UNSCH PRN IV PUSH 08/23/17 12:00 (Milk Of Magnesia Liq) 30 ml Q12H PRN PO 08/23/17 12:00 (Senokot) 17.2 mg Q12H PRN PO 08/23/17 12:00 (Dulcolax Supp) 10 mg DAILY PRN RECTAL 08/23/17 12:00 (Lactulose Liq) 30 ml DAILY PRN PO 08/23/17 12:00 (Romazicon Inj) 0.2 mg Q1M PRN IV PUSH 08/23/17 12:00 (Ativan) 1 mg Q4H PRN PO 08/23/17 12:00 (Ativan Inj) 1 mg Q4H PRN IV PUSH 08/23/17 12:00 (Ativan) 2 mg Q2H PRN PO 08/23/17 12:00 (Ativan Inj) 2 mg Q2H PRN IV PUSH 08/23/17 12:00 (Ativan Inj) 2 mg Q1H PRN IV PUSH 08/23/17 12:00 (Ativan Inj) 2 mg Q15M PRN IV PUSH 08/23/17 12:00 (Lactulose Liq) 30 ml QID PO 08/25/17 15:15 09/03/17 12:49 (Theragran) 1 tab DAILY PO 08/26/17 09:00 09/03/17 09:10 (Vitamin B1) 100 mg DAILY PO 08/26/17 09:00 09/03/17 09:10 (Folate) 1 mg DAILY PO 08/26/17 09:00 09/03/17 09:10 (Protonix) 40 mg DAILY PO 08/27/17 09:00 09/03/17 09:10 (Ambien) 5 mg HS PRN PO 08/29/17 11:30 09/02/17 21:45 (Lasix) 40 mg BID@ PO 08/30/17 13:45 09/03/17 09:10 (Aldactone) 50 mg BID@ PO 08/30/17 13:45 09/03/17 09:10 (Duoneb Neb) 1 ampule Q6HR NEB PRN NEB 09/03/17 10:00 (Estefani Capps MD R1) Urinary Catheter: No (Estefani Capps MD R1) Vascular Central Line Catheter: No (Estefani Capps MD R1) A/P Assessment and Plan Patient is 51 year old male with cirrhosis and alcoholism who presents for acute blood loss anemia secondary to GIB. Gastroenterology consulted, status post EGD colonoscopy on 08/24, s/p paracentesis 08/28. Stain of peritoneal fluid negative. Fluid continues to reaccumulate and diuresis is attempted. Discharge Planning Discharge likely Monday after paracentesis by IR. (Estefani Capps MD R1) Attending Attestation Patient seen and examined, discussed with Dr Capps. I agree with assessment and management as documented and discussed with me. PT without new complaints. Anticipate discharge tomorrow, after repeat US and possible paracentesis. (Awilda Tapia MD) Problem List: (1) Ulcerative esophagitis ICD Codes: K22.10 - Ulcer of esophagus without bleeding Status: Acute Plan: Patient continues with some epigastric tenderness but eating and drinking without difficulty. Continue 40 mg pantoprazole PO daily. Hospital Course: * EGD biopsy 08/25: Chronic gastritis, severe and acute ulcerative esophagitis. (2) Cirrhosis of liver ICD Codes: K74.60 - Unspecified cirrhosis of liver Plan: Lasix 40 mg BID for fluid overload/ascites, 50 mg Aldactone twice a day. Nursing order for 1500 mL fluid restriction. Nursing order for strict I's and O's. Plan for paracentesis tomorrow, prior to discharge. Hospital Course: * RUQ ultrasound on admission showed enlarged heterogeneous nodular liver suggesting cirrhosis, ascites, gallbladder wall thickening without stones. * Ammonia on admission elevated at 109-->159, started lactulose 30mg QID on 08/25 , ammonia improved. * Gastroenterology has signed off; Status post paracentesis on 08/28, 4400 mL removed. Cytology and cultures 48 hours, negative for malignant cells. EGD biopsy 08/25: Chronic gastritis, severe and acute ulcerative esophagitis. (3) Ascites ICD Codes: R18.8 - Other ascites Status: Chronic Plan: * See Plan for Cirrhosis of liver. (4) Alcohol withdrawal ICD Codes: F10.239 - Alcohol dependence with withdrawal, unspecified Status: Resolved Plan: * Heavy use, EtOH 19 on admission * [facility] protocol, not requiring medications at this time. * IV Rally Pack 08/23 --> PO Multivitamins on 08/25. * Counseling on alcohol cessation provided. (5) Severe anemia ICD Codes: D64.9 - Anemia, unspecified Status: Resolved Plan: Resolved Hospital Course: Patient presented 08/23 with severe anemia associated with acute GI losses. Hgb on admission 6.3. He is s/p 2 unit PRBCs given in ED - Hbg improved to 8.4 and has been stable. * Gastroenterology consult - EGD s/f gastric varices, likely portal gastropathy. * History of varices -previously on octreotide and IV PPI, transition to by mouth PPI. (6) Fluids, Electrolytes, Nutrition, and Prophylaxis Status: Acute Plan: Fluids: Tolerates PO. Electrolytes: Monitor and replete as necessary. Nutrition: Heart healthy diet. PPX: SCDs, PPI 40mg PO daily. (Estefani Capps MD R1) Problem Qualifiers (1) Cirrhosis of liver: Qualified Codes: K70.31 - Alcoholic cirrhosis of liver with ascites (2) Alcohol withdrawal: Qualified Codes: F10.230 - Alcohol dependence with withdrawal, uncomplicated Estefani Capps MD R1 Sep 03, 2017 13:16 Awilda Tapia MD Sep 04, 2017 14:38
[2017-09-03] MEDS: ZOLPIDEM TARTRATE 5 MG TAB PO PRN (21:12)
[2017-09-04 04:00] VITALS: BP 109/56; PULSE 93; RESP 18; TEMP 97.7; O2SAT 93
[2017-09-04 07:28] LABS: AUTOMATED NEUTROPHIL # 1.9 TH/MM3 (1.8-7.7); BASOPHIL # 0.1 TH/MM3 (0-0.2); BASOPHIL % 2.4 % (0.0-2.0); EOSINOPHIL # 0.2 TH/MM3 (0-0.4); EOSINOPHIL % 5.6 % (0.0-4.0); HEMATOCRIT 29.2 % (39.0-51.0); HEMOGLOBIN 9.6 GM/DL (13.0-17.0); LYMPHOCYTE # 1.4 TH/MM3 (1.0-4.8); MEAN CELL VOLUME 86.2 FL (80.0-100.0); MEAN CORPUSCULAR HEMOGLOBIN 28.5 PG (27.0-34.0); MEAN CORPUSCULAR HGB CONC 33.1 % (32.0-36.0); MONO % 13.4 % (0.0-8.0); MONOCYTE # 0.6 TH/MM3 (0-0.9); NEUT % 44.6 % (16.0-70.0); PLATELET COUNT 174 TH/MM3 (150-450); RED BLOOD COUNT 3.38 MIL/MM3 (4.50-5.90); RED CELL DISTRIBUTION WIDTH 20.7 % (11.6-17.2); WHITE BLOOD COUNT 4.2 TH/MM3 (4.0-11.0)
[2017-09-04 07:34] LABS: INTERNATIONAL NORMALIZED RATIO 1.5 RATIO; PROTHROMBIN TIME - PATIENT 14.7 SEC (9.8-11.6)
[2017-09-04 07:51] LABS: ALBUMIN 2.3 GM/DL (3.4-5.0); AST (GOT) 33 U/L (15-37); BICARBONATE 25.3 MEQ/L (21.0-32.0); BLOOD UREA NITROGEN 8 MG/DL (7-18); CALCIUM 7.8 MG/DL (8.5-10.1); CHLORIDE 101 MEQ/L (98-107); CREATININE 0.68 MG/DL (0.60-1.30); GLOMERULAR FILTRATION RATE 123 ML/MIN (>89); GLUCOSE,RANDOM 119 MG/DL (74-106); SODIUM (NA) 136 MEQ/L (136-145)
[2017-09-04 07:53] LABS: ALT (GPT) 22 U/L (12-78)
[2017-09-04 07:55] LABS: ALKALINE PHOSPHATASE 215 U/L (45-117); TOTAL BILIRUBIN ADULT 1.6 MG/DL (0.2-1.0)
[2017-09-04 08:09] VITALS: BP 127/58; PULSE 101; RESP 20; TEMP 98.1; O2SAT 94
[2017-09-04] MEDS: FUROSEMIDE 40 MG TAB PO SCH (08:34)
[2017-09-04] MEDS: SPIRONOLACTONE 50 MG TAB PO SCH (08:34)
[2017-09-04] MEDS: LACTULOSE SYRUP 20 GM/30 ML CUP PO SCH ×3 (08:34→11:42)
[2017-09-04] MEDS: MULTIVITAMIN TAB PO SCH (08:34)
[2017-09-04] MEDS: FOLIC ACID 1 MG TAB PO SCH (08:35)
[2017-09-04] MEDS: SODIUM CHLORIDE 0.9% FLUSH 10 ML FLUSH IV FLUSH SCH (08:35)
[2017-09-04] MEDS: THIAMINE HCL 100 MG TAB PO SCH (08:35)
[2017-09-04] MEDS: PANTOPRAZOLE SOD 40 MG DELAYED RELEASE TAB PO SCH (08:35)
[2017-09-04 09:15] VITALS: PULSE 100
--- NOTE | 2017-09-04 09:17 | HHI.FPPN ---
Subjective Remarks Patient seen and examined bedside this morning. Patient states he continues to have mild headache abdominal pains. No acute events overnight. He denies any chest pain/shortness of breath/dizziness. (Bonita Lau MD R2) Objective Vitals Vital Signs Date Time Temp Pulse Resp B/P (MAP) Pulse Ox O2 Delivery O2 Flow Rate FiO2 09/04/17 08:09 98.1 101 20 127/58 (81) 94 09/04/17 04:00 97.7 93 18 109/56 (73) 93 09/03/17 22:00 95 09/03/17 20:00 98.5 95 18 105/55 (72) 93 09/03/17 20:00 98.6 83 18 109/70 (83) 95 09/03/17 16:00 98.2 93 16 103/63 (76) 95 09/03/17 12:20 Nasal Cannula 09/03/17 12:00 98.3 100 16 106/56 (73) 94 09/03/17 12:00 98 I/O 09/03/17 09/03/17 09/03/17 09/04/17 09/04/17 09/04/17 07:00 15:00 23:00 07:00 15:00 23:00 Intake Total 200 ml Output Total 1000 ml 750 ml Balance -800 ml -750 ml Intake Oral 200 ml Output Urine Total 1000 ml 750 ml # Bowel Movements 0 (Bonita Lau MD R2) Result Diagram: 09/04/17 0650 09/04/17 0650 Objective Remarks GENERAL: Patient is lying in bed in no apparent distress. Normal speech with no confusion. SKIN: No jaundice appreciated. No ecchymoses. Skin warm and dry. HEAD: Atraumatic. Normocephalic. EYES: Extraocular motions intact. No scleral icterus. No injection or drainage. ENT: Nose without bleeding, purulent drainage or septal hematoma. Airway patent. NECK: Supple, nontender, no meningeal signs. CARDIOVASCULAR: Aortic area 3/6 murmur noted, nonradiating. Normal rate. RESPIRATORY: Breath sounds equal bilaterally. Wheezing on inspiration and expiration - improved. GASTROINTESTINAL: Abdomen distended but soft. Minimally tender to palpation over epigastric area. No palpated masses. No guarding. No peritoneal signs. No rebound tenderness. Bandage over her paracentesis site removed; small superficial abrasion and irritation seen - stable from prior exam. MUSCULOSKELETAL: Extremities without clubbing, cyanosis. No calf tenderness. NEUROLOGICAL: Awake and alert. No tremors appreciated. Cranial nerves II through XII grossly intact. Strength and sensation grossly intact. Normal speech. Procedures EGD 08/24/2017: Esophagitis, reflux-related gastritis with probably some portal gastropathy, nodular duodenal bulb of unclear significance Colonoscopy 08/24/2017: normal (Bonita Lau MD R2) A/P Assessment and Plan Patient is 51 year old male with cirrhosis and alcoholism who presents for acute blood loss anemia secondary to GIB. Gastroenterology consulted, status post EGD colonoscopy on 08/24, s/p paracentesis 08/28. Stain of peritoneal fluid negative. Fluid continues to reaccumulate and diuresis is attempted. Scheduled for paracentesis today on 09/04 and plan for discharge after. Discharge Planning Discharge likely Monday after paracentesis by IR. (Bonita Lau MD R2) Attending Attestation Patient seen and examined, discussed with resident team. I agree with assessment and management as documented and discussed with me. Pt was in US earlier this morning, but there was not enough fluid for paracentesis. Discharge today. Encouraged patient to avoid alcohol at all costs. (Awilda Tapia MD) Problem List: (1) Ulcerative esophagitis ICD Codes: K22.10 - Ulcer of esophagus without bleeding Status: Acute Plan: Patient continues with some epigastric tenderness but eating and drinking without difficulty. Continue 40 mg pantoprazole PO daily. Hospital Course: * EGD biopsy 08/25: Chronic gastritis, severe and acute ulcerative esophagitis. (2) Cirrhosis of liver ICD Codes: K74.60 - Unspecified cirrhosis of liver Plan: Lasix 40 mg BID for fluid overload/ascites, 50 mg Aldactone twice a day. Nursing order for 1500 mL fluid restriction. Nursing order for strict I's and O's. Plan for paracentesis today, prior to discharge. Hospital Course: * RUQ ultrasound on admission showed enlarged heterogeneous nodular liver suggesting cirrhosis, ascites, gallbladder wall thickening without stones. * Ammonia on admission elevated at 109-->159, started lactulose 30mg QID on 08/25 , ammonia improved. * Gastroenterology has signed off; Status post paracentesis on 08/28, 4400 mL removed. Cytology and cultures 48 hours, negative for malignant cells. EGD biopsy 08/25: Chronic gastritis, severe and acute ulcerative esophagitis. (3) Ascites ICD Codes: R18.8 - Other ascites Status: Chronic Plan: * See Plan for Cirrhosis of liver. (4) Alcohol withdrawal ICD Codes: F10.239 - Alcohol dependence with withdrawal, unspecified Status: Resolved Plan: * Heavy use, EtOH 19 on admission * [facility] protocol, not requiring medications at this time. * IV Rally Pack 08/23 --> PO Multivitamins on 08/25. * Counseling on alcohol cessation provided. (5) Severe anemia ICD Codes: D64.9 - Anemia, unspecified Status: Resolved Plan: Resolved Hospital Course: Patient presented 08/23 with severe anemia associated with acute GI losses. Hgb on admission 6.3. He is s/p 2 unit PRBCs given in ED - Hbg improved to 8.4 and has been stable. * Gastroenterology consult - EGD s/f gastric varices, likely portal gastropathy. * History of varices -previously on octreotide and IV PPI, transition to by mouth PPI. (6) Fluids, Electrolytes, Nutrition, and Prophylaxis Status: Acute Plan: Fluids: Tolerates PO. Electrolytes: Monitor and replete as necessary. Nutrition: Heart healthy diet. PPX: SCDs, PPI 40mg PO daily. (Bonita Lau MD R2) Problem Qualifiers (1) Cirrhosis of liver: Qualified Codes: K70.31 - Alcoholic cirrhosis of liver with ascites (2) Alcohol withdrawal: Qualified Codes: F10.230 - Alcohol dependence with withdrawal, uncomplicated Bonita Lau MD R2 Sep 04, 2017 09:17 Awilda Tapia MD Sep 04, 2017 19:58
[2017-09-04] MEDS ORDERED: PANT40TA3 PO (09:21)
[2017-09-04] MEDS ORDERED: FOLI1TAB6 PO (09:21)
[2017-09-04] MEDS ORDERED: ALDA50TA2 PO (09:21)
[2017-09-04] MEDS ORDERED: FURO40TA PO (09:21)
[2017-09-04] MEDS ORDERED: THERTAB15 PO (09:21)
[2017-09-04] MEDS ORDERED: THIA100 PO (09:21)
--- NOTE | 2017-09-04 09:27 | HHI.DS ---
Discharge Summary Admission Date Aug 23, 2017 at 11:12 Discharge Date: Sep 04, 2017 Admitting Diagnosis GI bleed/severe anemia (1) Ulcerative esophagitis Plan: Patient continues with some epigastric tenderness but eating and drinking without difficulty. Continue 40 mg pantoprazole PO daily. Hospital Course: * EGD biopsy 08/25: Chronic gastritis, severe and acute ulcerative esophagitis. ICD Codes: K22.10 - Ulcer of esophagus without bleeding Status: Acute (2) Cirrhosis of liver Plan: Lasix 40 mg BID for fluid overload/ascites, 50 mg Aldactone twice a day. Nursing order for 1500 mL fluid restriction. Nursing order for strict I's and O's. Plan for paracentesis today, prior to discharge. Hospital Course: * RUQ ultrasound on admission showed enlarged heterogeneous nodular liver suggesting cirrhosis, ascites, gallbladder wall thickening without stones. * Ammonia on admission elevated at 109-->159, started lactulose 30mg QID on 08/25 , ammonia improved. * Gastroenterology has signed off; Status post paracentesis on 08/28, 4400 mL removed. Cytology and cultures 48 hours, negative for malignant cells. EGD biopsy 08/25: Chronic gastritis, severe and acute ulcerative esophagitis. ICD Codes: K74.60 - Unspecified cirrhosis of liver (3) Ascites Plan: * See Plan for Cirrhosis of liver. ICD Codes: R18.8 - Other ascites Status: Chronic (4) Alcohol withdrawal Plan: * Heavy use, EtOH 19 on admission * [facility] protocol, not requiring medications at this time. * IV Rally Pack 08/23 --> PO Multivitamins on 08/25. * Counseling on alcohol cessation provided. ICD Codes: F10.239 - Alcohol dependence with withdrawal, unspecified Status: Resolved (5) Severe anemia Plan: Resolved Hospital Course: Patient presented 08/23 with severe anemia associated with acute GI losses. Hgb on admission 6.3. He is s/p 2 unit PRBCs given in ED - Hbg improved to 8.4 and has been stable. * Gastroenterology consult - EGD s/f gastric varices, likely portal gastropathy. * History of varices -previously on octreotide and IV PPI, transition to by mouth PPI. ICD Codes: D64.9 - Anemia, unspecified Status: Resolved (6) Fluids, Electrolytes, Nutrition, and Prophylaxis Plan: Fluids: Tolerates PO. Electrolytes: Monitor and replete as necessary. Nutrition: Heart healthy diet. PPX: SCDs, PPI 40mg PO daily. Status: Acute Procedures EGD 08/24/2017: Esophagitis, reflux-related gastritis with probably some portal gastropathy, nodular duodenal bulb of unclear significance Colonoscopy 08/24/2017: normal Brief History Patient is a 51 year old male with history of homelessness and cirrhosis who presents with bloody stools, vomiting, and abdominal pain. Onset = 1-2 days ago , stooling at least 20 times in the last day. Abdominal pain followed diarrhea and patient noticed it was dark red. Pain is located bilaterally in abdomen, not epigastric. He vomited blood as well at least 2-3 times. He reports chills, subjective fever. He notes his abdomen swelling and he has pain on his bottom. He notes chronic ankle and knee pain. He reports he has history of GIB 11 months ago but not noted in [facility]. He was seen in ED for medical clearance to [facility] on July 31 and was treated for bleeding facial vein at that time. He reports being at [facility] and having EGD and colonoscopy in the past but this is not found in his chart. Not on any medications at this time because they were lost or stolen and does not know what he was on. CBC/BMP: 09/04/17 0650 09/04/17 0650 Significant Findings Laboratory Tests Test 09/02/17 07:46 09/03/17 06:19 09/03/17 06:39 09/04/17 06:50 White Blood Count 3.4 TH/MM3 (4.0-11.0) 3.9 TH/MM3 (4.0-11.0) Red Blood Count 3.01 MIL/MM3 (4.50-5.90) 3.02 MIL/MM3 (4.50-5.90) 3.38 MIL/MM3 (4.50-5.90) Hemoglobin 8.6 GM/DL (13.0-17.0) 8.6 GM/DL (13.0-17.0) 9.6 GM/DL (13.0-17.0) Hematocrit 26.3 % (39.0-51.0) 26.1 % (39.0-51.0) 29.2 % (39.0-51.0) Red Cell Distribution Width 20.2 % (11.6-17.2) 20.8 % (11.6-17.2) 20.7 % (11.6-17.2) Platelet Count 124 TH/MM3 (150-450) Total Protein 6.2 GM/DL (6.4-8.2) 6.3 GM/DL (6.4-8.2) Albumin 2.1 GM/DL (3.4-5.0) 2.1 GM/DL (3.4-5.0) 2.3 GM/DL (3.4-5.0) Calcium Level 7.5 MG/DL (8.5-10.1) 7.5 MG/DL (8.5-10.1) 7.8 MG/DL (8.5-10.1) Alkaline Phosphatase 188 U/L (45-117) 190 U/L (45-117) 215 U/L (45-117) Total Bilirubin 1.5 MG/DL (0.2-1.0) 1.4 MG/DL (0.2-1.0) 1.6 MG/DL (0.2-1.0) Creatinine 0.59 MG/DL (0.60-1.30) Random Glucose 129 MG/DL (74-106) 119 MG/DL (74-106) Monocytes (%) (Auto) 13.4 % (0.0-8.0) Eosinophils (%) (Auto) 5.6 % (0.0-4.0) Basophils (%) (Auto) 2.4 % (0.0-2.0) Prothrombin Time 14.7 SEC (9.8-11.6) PE at Discharge GENERAL: Patient is lying in bed in no apparent distress. Normal speech with no confusion. SKIN: No jaundice appreciated. No ecchymoses. Skin warm and dry. HEAD: Atraumatic. Normocephalic. EYES: Extraocular motions intact. No scleral icterus. No injection or drainage. ENT: Nose without bleeding, purulent drainage or septal hematoma. Airway patent. NECK: Supple, nontender, no meningeal signs. CARDIOVASCULAR: Aortic area 3/6 murmur noted, nonradiating. Normal rate. RESPIRATORY: Breath sounds equal bilaterally. Wheezing on inspiration and expiration - improved. GASTROINTESTINAL: Abdomen distended but soft. Minimally tender to palpation over epigastric area. No palpated masses. No guarding. No peritoneal signs. No rebound tenderness. Bandage over her paracentesis site removed; small superficial abrasion and irritation seen - stable from prior exam. MUSCULOSKELETAL: Extremities without clubbing, cyanosis. No calf tenderness. NEUROLOGICAL: Awake and alert. No tremors appreciated. Cranial nerves II through XII grossly intact. Strength and sensation grossly intact. Normal speech. Hospital Course Patient is a 51 year old male with history of homelessness and cirrhosis who presents with bloody stools, vomiting, and abdominal pain, found to have cirrhosis and alcoholism who presents for acute blood loss anemia secondary to GIB. Gastroenterology consulted, status post EGD colonoscopy on 08/24, s/p paracentesis 08/28. Stain of peritoneal fluid negative. Fluid continues to reaccumulate and diuresis is attempted. Patient seemed to improve with 2 days of diuresis and additional abdominal ultrasound on day of discharge showed minimal ascites and no indication for paracentesis. GI consulted and recommended discharge on diuretics. Patient continued to experience epigastric tenderness during the hospitalization and EGD was positive for ulcerative esophagitis. Patient recommended to continue PPI at discharge. Pt Condition on Discharge: Stable Discharge Instructions New Medications: Walker with Front Wheels (Walker with Front Wheels) 1 Mis Mis EA .XX DIRECTED, #1 0 Refills Folic Acid (Folic Acid) 1 Mg Tablet 1 MG PO DAILY for 30 Days, #30 TAB Furosemide (Furosemide) 40 Mg Tab 40 MG PO BID@,18 for 30 Days, #60 TAB Multivitamin with Folic Acid (Thera Tablet) 400 Mcg Tablet 1 TAB PO DAILY for 30 Days, #30 TAB Pantoprazole (Pantoprazole) 40 Mg Tab 40 MG PO DAILY for 30 Days, #30 TAB Spironolactone (Aldactone) 50 Mg Tab 50 MG PO BID@,18 for 30 Days, #60 TAB Thiamine HCl (Gnp Vitamin B-1) 100 Mg Tab 100 MG PO DAILY for 30 Days, #30 TAB Bonita Lau MD R2 Sep 04, 2017 09:27
--- NOTE | 2017-09-04 09:28 | HHI.DCPOC ---
Discharge Care Plan Diagnosis: (1) GI bleed (2) Cirrhosis of liver (3) Severe anemia (4) Bleeding from varicose vein Goals to Promote Your Health * To prevent worsening of your condition and complications * To maintain your health at the optimal level Directions to Meet Your Goals Take your medications as prescribed Follow your dietary instruction Follow activity as directed Keep your appointments as scheduled Take your immunizations and boosters as scheduled If your symptoms worsen call your PCP, if no PCP go to Urgent Care Center or Emergency Room Smoking is Dangerous to Your Health. Avoid second hand smoke Call the 24-hour hour crisis hotline for domestic abuse at Bonita Lau MD R2 Sep 04, 2017 09:28
--- NOTE | 2017-09-04 10:51 | RADRPT ---
EXAM DATE/TIME: 09/04/2017 07:52 [facility] COMPARISON: No previous studies available for comparison. INDICATIONS : Ascites. MEDICAL HISTORY : Seizures. Palpatations. Cirrhosis. Ascites. Anxiety. Vomiting. SURGICAL HISTORY : Paracentesis. Blood transfusions. ENCOUNTER: Subsequent ACUITY: 1 week PAIN SCORE: 8/10 LOCATION: Bilateral Abdomen. AREA EVALUATED: RLQ. FINDINGS: Imaging of the abdomen and pelvis was performed to evaluate for ascites for possible paracentesis. P atient has a small amount of ascites without abdominal distention. Decision was made not to perfor m therapeutic paracentesis. Naldo Roberts MD FACR on September 04, 2017 at 10:46 Board Certified Radiologist. This report was verified electronically.
== END 2017-09-04 16:37 | disposition home or self-care (01) | DRG 378 ==
LOC: NEPE 08:21 → NEDA 11:12 → N05A 17:07
PROVIDERS: ADMIT Family Medicine; ATTEND Family Medicine
PROC: 0DB38ZX Excision of Lower Esophagus, Via Natural or Artificial Opening Endoscopic, Diagnostic (ICD-10-PCS; 2017-08-24)
PROC: 0DJD8ZZ Inspection of Lower Intestinal Tract, Via Natural or Artificial Opening Endoscopic (ICD-10-PCS; 2017-08-24)
PROC: 0DB98ZX Excision of Duodenum, Via Natural or Artificial Opening Endoscopic, Diagnostic (ICD-10-PCS; principal; 2017-08-24 15:28)
PROC: 0DB68ZX Excision of Stomach, Via Natural or Artificial Opening Endoscopic, Diagnostic (ICD-10-PCS; 2017-08-24 15:28)
PROC: 0W9G3ZZ Drainage of Peritoneal Cavity, Percutaneous Approach (ICD-10-PCS; 2017-08-28)
DX: K92.1 Melena (principal); K22.10 Ulcer of esophagus without bleeding; K70.31 Alcoholic cirrhosis of liver with ascites; D62 Acute posthemorrhagic anemia; F10.230 Alcohol dependence with withdrawal, uncomplicated; R79.1 Abnormal coagulation profile; E87.70 Fluid overload, unspecified; Z59.0 Homelessness; K21.0 Gastro-esophageal reflux disease with esophagitis; I86.4 Gastric varices; K29.50 Unspecified chronic gastritis without bleeding; K31.89 Other diseases of stomach and duodenum; Y90.0 Blood alcohol level of less than 20 mg/100 ml; F17.210 Nicotine dependence, cigarettes, uncomplicated; R19.7 Diarrhea, unspecified; Z88.0 Allergy status to penicillin; Z87.19 Personal history of other diseases of the digestive system
CPT/HCPCS: 36430; 49083; 71045; 71046; 73610; 76705; 80053; 80307; 81001; 82042; 82140; 82150; 82945; 82948; 83615; 83690; 84157; 85014; 85018; 85025; 85027; 85610; 85730; 86850; 86900; 86901; 86920; 87070; 87205; 88112; 88305; 88312; 89051; 93005; 93306; 94150; 94640; 94664; 96361; 96374; C1729; C9113; J0744; J2354; J2405; J3411; J3430; J7030; J7040; J7050; P9016

== ENCOUNTER 2017-09-13 21:43 | Emergency (ER) | payer MEDICARE, OTHER ==
[~2017-09-13] VITALS: Ht 170.2 cm; Wt 71.5 kg
[~2017-09-13 21:43] MED LIST: ALDA50TA2 PO; FOLI1TAB6 PO; FURO40TA PO; PANT40TA3 PO; THERTAB15 PO; THIA100 PO; WALKER WHEELS/F1 MIS
[2017-09-13 21:54] VITALS: BP 139/74; PULSE 111; RESP 20; O2SAT 99
[2017-09-14 01:41] VITALS: BP_SYST 119; BP_SYST 131; BP_SYST 132; BP_DIAS 62; BP_DIAS 68; BP_DIAS 70
[2017-09-14] MEDS ORDERED: SODIUM CHLOR 0.9% 1000 ML INJ 1,000 ML IV SCH (01:44)
[2017-09-14] MEDS ORDERED: ONDANSETRON HCL 4 MG/2 ML VIAL IVP ONE (01:45)
[2017-09-14] MEDS ORDERED: PANTOPRAZOLE SODIUM 40 MG VIAL IVP ONE (01:45)
[2017-09-14] MEDS ORDERED: SODIUM CHLORIDE 0.9% FLUSH 10 ML FLUSH IV FLUSH PRN (01:45)
--- NOTE | 2017-09-14 01:49 | PD ---
HPI Chief Complaint: Abdominal Pain Time Seen by Provider: 01:44 Travel History International Travel<30 days: No Contact w/Intl Traveler<30days: No Traveled to known affect area: No History of Present Illness HPI 51-year-old male presents to the emergency department complaining of abdominal pain with diarrhea. Patient's had nausea without vomiting. Patient was recently discharged from the hospital after being admitted for GI bleed. Patient states that he lost all the medications that he was given at time of discharge. Patient does not report any hematemesis or coffee-ground emesis. Patient does not report any melena hematochezia. Patient denies fever chills. No report of shortness of breath or chest pain. Patient has noted dizziness with ambulation. Patient does admit to alcohol use and substance use. Patient is unable to identify exacerbating or alleviating factors. Patient is denied any fall or injury. Patient did undergo upper endoscopy which was remarkable for erosive and ulcerative esophagitis PFSH Past Medical History Autoimmune Disease: No Anxiety: Yes Depression: Yes Cancer: No Cardiovascular Problems: No Chemotherapy: No Cirrhosis: Yes Cerebrovascular Accident: No Diabetes: No Endocrine: No Gastrointestinal Disorders: Yes GERD: No Genitourinary: No Hiatal Hernia: No Kidney Stones: No Musculoskeletal: No Neurologic: Yes (Pt states I used to get seizures) Psychiatric: Yes Reproductive: No Respiratory: No Migraines: No Radiation Therapy: No Renal Failure: No Seizures: Yes Thyroid Disease: No Ulcer: No Past Surgical History Surgical History: No Previous Surgery AICD: No Arteriovenous Shunt: No Insulin Pump: No Joint Replacement: No Pacemaker: No Social History Alcohol Use: Yes Tobacco Use: Yes (1 cig a day) Substance Use: Yes (Phoebe) Allergies-Medications (Allergen,Severity, Reaction): Coded Allergies: Penicillins (Verified Allergy, Unknown, 08/23/17) patient just states "they told me im allergic to PCN" Reported Meds & Prescriptions Reported Meds & Active Scripts Active Thera Tablet (Multivitamin with Folic Acid) 400 Mcg Tablet 1 Tab PO DAILY 30 Days Folic Acid 1 Mg Tablet 1 Mg PO DAILY 30 Days Gnp Vitamin B-1 (Thiamine HCl) 100 Mg Tab 100 Mg PO DAILY 30 Days Aldactone (Spironolactone) 50 Mg Tab 50 Mg PO BID@,18 30 Days Furosemide 40 Mg Tab 40 Mg PO BID@09,18 30 Days Pantoprazole (Pantoprazole Sodium) 40 Mg Tab 40 Mg PO DAILY 30 Days Walker with Front Wheels (Device) 1 Mis Mis Ea .XX DIRECTED Review of Systems Except as stated in HPI: all other systems reviewed are Neg General / Constitutional: No: Fever, Chills HENT: No: Congestion Cardiovascular: No: Chest Pain or Discomfort Respiratory: No: Shortness of Breath Gastrointestinal: Positive: Nausea, Abdominal Pain Genitourinary: No: Dysuria, Flank Pain Musculoskeletal: No: Myalgias, Arthralgias Skin: No Rash Neurologic: No: Weakness Psychiatric: No: Anxiety Hematologic/Lymphatic: No: Lymph Node Enlargement Physical Exam Narrative GENERAL: Well-developed well-nourished male no acute distress or respiratory distress SKIN: Warm and dry. HEAD: Normocephalic. EYES: No scleral icterus. No injection or drainage. NECK: Supple, trachea midline. No JVD or lymphadenopathy. CARDIOVASCULAR: Regular rate and rhythm without murmurs, gallops, or rubs. RESPIRATORY: Breath sounds equal bilaterally. No accessory muscle use. GASTROINTESTINAL: Abdomen soft, non-tender, nondistended. MUSCULOSKELETAL: No cyanosis, or edema. BACK: Nontender without obvious deformity. No CVA tenderness. Data Data Last Documented VS Vital Signs Date Time Temp Pulse Resp B/P (MAP) Pulse Ox O2 Delivery O2 Flow Rate FiO2 09/14/17 01:50 105 20 119/62 (81) 98 Room Air Orders Orders Complete Blood Count With Diff (09/14/17 01:44) Comprehensive Metabolic Panel (09/14/17 01:44) Lipase (09/14/17 01:44) Lactic Acid (09/14/17 01:44) Prothrombin Time / Inr (Pt) (09/14/17 01:44) Act Partial Throm Time (Ptt) (09/14/17 01:44) Urinalysis - C+S If Indicated (09/14/17 01:44) Ct Abd/Pel W Iv Contrast(Rout) (09/14/17 01:44) Iv Access Insert/Monitor (09/14/17 01:44) Ecg Monitoring (09/14/17 01:44) Oximetry (09/14/17 01:44) Ondansetron Inj (Zofran Inj) (09/14/17 01:45) Pantoprazole Inj (Protonix Inj) (09/14/17 01:45) Sodium Chlor 0.9% 1000 Ml Inj (Ns 1000 M (09/14/17 01:44) Sodium Chloride 0.9% Flush (Ns Flush) (09/14/17 01:45) Electrocardiogram (09/14/17 01:44) Alcohol (Ethanol) (09/14/17 01:44) Magnesium (Mg) (09/14/17 01:44) Drug Screen, Random Urine (09/14/17 01:44) Type And Screen (09/14/17 01:44) Ns (Bolus) Inj (09/14/17 05:00) Metronidazole 500 Mg Inj (Flagyl 500 Mg (09/14/17 05:00) Thiamine Inj (Thiamine Inj) (09/14/17 05:00) Sucralfate Liq (Carafate Liq) (09/14/17 05:00) Labs Laboratory Tests Test 09/14/17 02:05 White Blood Count 3.4 TH/MM3 Red Blood Count 3.35 MIL/MM3 Hemoglobin 9.2 GM/DL Hematocrit 27.7 % Mean Corpuscular Volume 82.8 FL Mean Corpuscular Hemoglobin 27.5 PG Mean Corpuscular Hemoglobin Concent 33.2 % Red Cell Distribution Width 21.1 % Platelet Count 134 TH/MM3 Mean Platelet Volume 7.5 FL Neutrophils (%) (Auto) 62.9 % Lymphocytes (%) (Auto) 21.4 % Monocytes (%) (Auto) 10.2 % Eosinophils (%) (Auto) 4.2 % Basophils (%) (Auto) 1.3 % Neutrophils # (Auto) 2.1 TH/MM3 Lymphocytes # (Auto) 0.7 TH/MM3 Monocytes # (Auto) 0.3 TH/MM3 Eosinophils # (Auto) 0.1 TH/MM3 Basophils # (Auto) 0.0 TH/MM3 CBC Comment DIFF FINAL Differential Comment Prothrombin Time 14.5 SEC Prothromb Time International Ratio 1.4 RATIO Activated Partial Thromboplast Time 28.4 SEC Blood Urea Nitrogen 7 MG/DL Creatinine 0.47 MG/DL Random Glucose 99 MG/DL Total Protein 7.3 GM/DL Albumin 2.7 GM/DL Calcium Level 8.0 MG/DL Magnesium Level 1.5 MG/DL Alkaline Phosphatase 185 U/L Aspartate Amino Transf (AST/SGOT) 47 U/L Alanine Aminotransferase (ALT/SGPT) 27 U/L Total Bilirubin 3.1 MG/DL Sodium Level 142 MEQ/L Potassium Level 3.6 MEQ/L Chloride Level 108 MEQ/L Carbon Dioxide Level 25.8 MEQ/L Anion Gap 8 MEQ/L Estimat Glomerular Filtration Rate 188 ML/MIN Lactic Acid Level 1.2 mmol/L Lipase 231 U/L Ethyl Alcohol Level LESS THAN 3 MG/DL MDM Medical Decision Making Medical Screen Exam Complete: Yes Emergency Medical Condition: Yes Medical Record Reviewed: Yes Interpretation(s) EKG: Sinus tach rate [address] elevation injury pattern or ectopy noted CBC & BMP Diagram 09/14/17 02:05 Total Protein 7.3, Albumin 2.7 L, Calcium Level 8.0 L, Magnesium Level 1.5, Alkaline Phosphatase 185 H, Aspartate Amino Transf (AST/SGOT) 47 H, Alanine Aminotransferase (ALT/SGPT) 27, Total Bilirubin 3.1 H Vital Signs Date Time Temp Pulse Resp B/P (MAP) Pulse Ox O2 Delivery O2 Flow Rate FiO2 09/14/17 01:50 105 20 119/62 (81) 98 Room Air 09/14/17 01:41 131/68 (89) 132/70 (90) 119/62 (81) 09/13/17 21:54 111 20 139/74 (95) 99 Lactic acid 1.2, not elevated Serum alcohol: Less than 3, not elevated Differential Diagnosis Abdominal pain, gastritis, pancreatitis, colitis, diverticulitis, anemia, ascites, peritonitis, UTI, renal colic, substance abuse, alcohol abuse, electrolyte disturbance Narrative Course IV access obtained specimens collected and sent for resulting EKG performed shows sinus tach with no acute ST elevation injury pattern or ectopy noted patient administered Zofran 4 mg IV normal saline 1 L bolus and Protonix 40 mg IV Patient resting comfortably voicing no concerns or complaints patient identified to have pancytopenia and hyperbilirubinemia patient underwent liver ultrasound health 09/04/17 was identified to have gallbladder wall thickening but no evidence of stones pericholecystic fluid or sonographic Quiñones sign. Patient did undergo paracentesis ultrasound-guided for ascites and at time of discharge had minimal ascitic fluid. Patient here denies any right upper quadrant tenderness pain is primarily left lower quadrant without guarding or rebound. Patient's total white cell count is 3400 with mild anemia 9.2 and, cytopenia 134,000 patient does have monocytosis 10% by automated differential however no left shift is identified and lactic acid is not elevated at 1.2. CT abdomen and pelvis ordered. CT consistent with colitis and chronic changes of cirrhosis and portal hypertension; this information is shared with the patient; patient given one- time dose of Flagyl 500 mg IV piggyback. Rectal exam performed normal sphincter tone yellow mucus on glove Hemoccult negative. Diagnosis Primary Impression: Colitis Additional Impression: Cirrhosis of liver Referrals: [facility] Patient Instructions: General Instructions Additional Instructions: Follow clear liquid diet for next 12-24 hours advance as tolerated to bland/ brat diet and regular diet avoiding fried and fatty foods Discontinue alcohol use follow-up with [facility] for detox resources Complete course of antibiotic as prescribed; do NOT drink alcoholic beverages of any kind while taking this antibiotic Return to the emergency department for concerns or change in condition Take Protonix as prescribed daily for 14 days and take Carafate as prescribed 4 times daily for 7 days Med/Other Pt SpecificInfo: Prescription(s) given Scripts Pantoprazole (Protonix) 40 Mg Tab 40 MG PO DAILY for Reflux, #30 TAB 0 Refills Prov: Lynne Booth MD 09/14/17 Sucralfate Liq (Carafate Liq) 1 Gm/10 Ml Susp 1 GM PO QID for Duodenal ulcer for 7 Days, ML 0 Refills on empty stomach Prov: Lynne Booth MD 09/14/17 Metronidazole (Flagyl) 500 Mg Tab 500 MG PO QID for Infection, #28 TAB 0 Refills Prov: Lynne Booth MD 09/14/17 Disposition: 01 DISCHARGE HOME Condition: Stable Lynne Booth MD Sep 14, 2017 01:49
[2017-09-14 01:50] VITALS: BP 119/62; PULSE 105; RESP 20; O2SAT 98
[2017-09-14 02:21] LABS: AUTOMATED NEUTROPHIL # 2.1 TH/MM3 (1.8-7.7); BASOPHIL % 1.3 % (0.0-2.0); EOSINOPHIL # 0.1 TH/MM3 (0-0.4); EOSINOPHIL % 4.2 % (0.0-4.0); HEMATOCRIT 27.7 % (39.0-51.0); HEMOGLOBIN 9.2 GM/DL (13.0-17.0); LYMPH % 21.4 % (9.0-44.0); LYMPHOCYTE # 0.7 TH/MM3 (1.0-4.8); MEAN CELL VOLUME 82.8 FL (80.0-100.0); MEAN CORPUSCULAR HEMOGLOBIN 27.5 PG (27.0-34.0); MEAN CORPUSCULAR HGB CONC 33.2 % (32.0-36.0); MEAN PLATELET VOLUME 7.5 FL (7.0-11.0); MONO % 10.2 % (0.0-8.0); MONOCYTE # 0.3 TH/MM3 (0-0.9); NEUT % 62.9 % (16.0-70.0); PLATELET COUNT 134 TH/MM3 (150-450); RED BLOOD COUNT 3.35 MIL/MM3 (4.50-5.90); RED CELL DISTRIBUTION WIDTH 21.1 % (11.6-17.2); WHITE BLOOD COUNT 3.4 TH/MM3 (4.0-11.0)
[2017-09-14 02:30] LABS: INTERNATIONAL NORMALIZED RATIO 1.4 RATIO; PROTHROMBIN TIME - PATIENT 14.5 SEC (9.8-11.6)
[2017-09-14 02:44] LABS: ALBUMIN 2.7 GM/DL (3.4-5.0); ALT (GPT) 27 U/L (12-78); AST (GOT) 47 U/L (15-37); BICARBONATE 25.8 MEQ/L (21.0-32.0); BLOOD UREA NITROGEN 7 MG/DL (7-18); CHLORIDE 108 MEQ/L (98-107); CREATININE 0.47 MG/DL (0.60-1.30); GLOMERULAR FILTRATION RATE 188 ML/MIN (>89); GLUCOSE,RANDOM 99 MG/DL (74-106); MAGNESIUM 1.5 MG/DL (1.5-2.5); SODIUM (NA) 142 MEQ/L (136-145)
[2017-09-14 02:47] LABS: ALKALINE PHOSPHATASE 185 U/L (45-117); TOTAL BILIRUBIN ADULT 3.1 MG/DL (0.2-1.0); TOTAL PROTEIN 7.3 GM/DL (6.4-8.2)
[2017-09-14] MEDS ORDERED: IOHEXOL 350 MG/ML 10 ML VIAL (for RAD DIAG) IVCONTRAST ONE (03:42)
--- NOTE | 2017-09-14 03:57 | RADRPT ---
EXAM DATE/TIME: 09/14/2017 03:42 [facility] COMPARISON: No previous studies available for comparison. INDICATIONS : Abdomen pain. IV CONTRAST: 100 cc Omnipaque 350 (iohexol) IV ORAL CONTRAST: No oral contrast ingested. RADIATION DOSE: 6.64 CTDIvol (mGy) MEDICAL HISTORY : Cirrhosis. ascites; GI bleed SURGICAL HISTORY : paracentesis. ENCOUNTER: Initial ACUITY: 1 day PAIN SCALE: 7/10 LOCATION: Bilateral abdomen TECHNIQUE: Volumetric scanning of the abdomen and pelvis was performed. Using automated exposure control and ad justment of the mA and/or kV according to patient size, radiation dose was kept as low as reasonably achievable to obtain optimal diagnostic quality images. DICOM format image data is available electro nically for review and comparison. FINDINGS: Heterogeneous and nodular appearing liver. There is recanalization of the umbilical vein and gastroes ophageal varices. Small ascites present. Spleen measures 15 cm craniocaudal. Probable splenorenal deidre nt. No focal hepatic lesion. No evidence of biliary obstruction. Pancreas, adrenal glands and kidneys are within normal limits. There is wall thickening and mild inflammatory changes of the colon, fairly generalized but perhaps a little worse of the transverse colon. No bowel obstruction. There is no free air. Trace right base atelectasis. CONCLUSION: 1. Mild diffuse colitis, presumably infectious or inflammatory. 2. Findings related to cirrhosis and portal hypertension including gastroesophageal varices and other portosystemic collaterals, splenomegaly and small ascites. Gurdeep Abad MD on September 14, 2017 at 3:50 Board Certified Radiologist. This report was verified electronically.
[2017-09-14] MEDS ORDERED: metroNIDAZOLE 500 MG INJ 100 ML IV ONE (05:00)
[2017-09-14] MEDS ORDERED: THIAMINE INJ 100 MG in SODIUM CHLORIDE 0.9% INJ 100 ML IV ONE (05:00)
[2017-09-14] MEDS ORDERED: SODIUM CHLOR 0.9% 1000 ML INJ 1,000 ML IV ONE (05:00)
[2017-09-14] MEDS ORDERED: PROT40TA PO (05:00)
[2017-09-14] MEDS ORDERED: CARA1SUS3 PO (05:00)
[2017-09-14] MEDS ORDERED: METR-1 PO (05:00)
[2017-09-14] MEDS ORDERED: SUCRALFATE 1 GM/10 ML CUP PO ONE (05:00)
[2017-09-14 10:48] VITALS: BP 130/64; PULSE 98; RESP 16; O2SAT 97
--- NOTE | 2017-09-14 16:25 | EKG ---
Date Performed: 09/14/2017 Time Performed: 02:42:04 PTAGE: 51 years EKG: Sinus rhythm When compared to previous tracing, sinus rate is slower. Non specific T wave changes have improved. NORMAL ECG PREVIOUS TRACING : 08/23/2017 12.45 DOCTOR: Deepak Marin Interpretating Date/Time 09/14/2017 16:24:22
== END 2017-09-14 11:36 | disposition home or self-care (01) ==
LOC: NEPC 21:43 → NEDAMB 09-14 11:36
DX: K52.9 Noninfective gastroenteritis and colitis, unspecified (principal); K74.60 Unspecified cirrhosis of liver; K76.6 Portal hypertension; F12.90 Cannabis use, unspecified, uncomplicated; F17.210 Nicotine dependence, cigarettes, uncomplicated; Z79.899 Other long term (current) drug therapy
CPT/HCPCS: 74177; 80053; 80307; 83605; 83690; 83735; 85025; 85610; 85730; 86850; 86900; 86901; 93005; 96361; 96365; 96366; 96375; 99285; C9113; J2405; J3411; J7030; Q9967